=== PATIENT | female | born 1960 | race Caucasian/White ===

== ENCOUNTER 2022-11-05 11:51 | Emergency (ER) | payer BC, SELFPAY ==
--- NOTE | ~2022-11-05 | XR_ITS ---
EXAMINATION: XR FOOT, RIGHT CLINICAL INFORMATION: History of fracture. Ongoing pain. COMPARISON: None TECHNIQUE: AP, lateral, and oblique views of the right foot. FINDINGS: There is callus formation overlying the appears to be a nondisplaced of the second metatarsal. The remaining bones joints and soft tissues are unremarkable. XR/XR foot RT min 3V IMPRESSION: Healing fracture of the distal diametaphysis of the second metatarsal.
[2022-11-05 12:26] VITALS: BP 181/71; PULSE 78; RESP 18; TEMP 36.6; O2SAT 100; BMI 20.3
--- NOTE | 2022-11-05 12:28 | ED.LOWEXIN ---
HPI - Extremity Injury (Lower) General Chief Complaint: Extremity Injury, Lower <ALEXIS Alvarado - Last Filed: 11/05/22 12:30> Stated Complaint: R foot pain <ALEXIS Alvarado - Last Filed: 11/05/22 12:30> Time Seen by Provider: 11/05/22 13:10 <ALEXIS Alvarado - Last Filed: 11/05/22 12:30> Source: patient <Aura Gillespie CNP - Last Filed: 11/05/22 15:22> Mode of arrival: ambulatory <Aura Gillespie CNP - Last Filed: 11/05/22 15:22> Limitations: no limitations <Aura Gillespie CNP - Last Filed: 11/05/22 15:22> History of Present Illness HPI Narrative: Patient is a 62-year-old female who presents emergency department for evaluation of persistent right foot pain. She reports in June 2022 she sustained a 2nd metatarsal fracture without surgical intervention, for which she was being evaluated and treated in [place]. Her last appointment was October 16, 2022, at that time she was advised that it is ?not healing as well as it should?, but she states that she was advised she could return to work without restrictions, and without the use of the walking boot. She reports since then she has continue to wear the walking boot. Last night she went to work at [employer], was on her feet for a prolonged period, did not have the walking boot present, and today she reports significant increase in her pain, that feels similar to the time when she initially fractured it. Denies any numbness tingling or cold sensation to the foot. She has not had any orthopedic follow-up here in [place] since she moved. <Aura Gillespie CNP - Last Filed: 11/05/22 15:22> Related Data Allergies/Adverse Reactions: Allergies Allergy/AdvReac Type Severity Reaction Status Date / Time acetaminophen [From Percocet] Allergy Headache Verified 11/05/22 13:05 oxycodone [From Percocet] Allergy Headache Verified 11/05/22 13:05 Penicillins Allergy Nausea and Verified 11/05/22 13:05 Vomiting <ALEXIS Alvarado - Last Filed: 11/05/22 12:30> Review of Systems Review of Systems: Musculoskeletal: Positive right foot pain as noted in HPI <Aura ChristiansenDARÍO hagen - Last Filed: 11/05/22 15:22> Yes all other systems are reviewed and are negative <Aura GillespieDARÍO - Last Filed: 11/05/22 15:22> [facility] Past Medical History Attestation statement: The following information was validated with the patient. <Aura Martinez DARÍO Gillespie - Last Filed: 11/05/22 15:22> Source: old records reviewed <Aurabessy ChristiansenDARÍO hagen - Last Filed: 11/05/22 15:22> Social History Social History: Social History Advance Directives: No Advance Directives Information Provided: Yes <ALEXIS Alvarado - Last Filed: 11/05/22 12:30> Physical Exam Vital Signs: Vital Signs: Last Vital Signs Temp 98 F 11/05/22 12:26 Pulse 78 11/05/22 12:26 Resp 18 11/05/22 12:26 BP 181/71 H 11/05/22 12:26 Pulse Ox 100 11/05/22 12:26 BMI result Body Mass Index 20.3 <ALEXIS Alvarado - Last Filed: 11/05/22 12:30> Vital Signs: Last Vital Signs Temp 98 F 11/05/22 12:26 Pulse 78 11/05/22 12:26 Resp 18 11/05/22 12:26 BP 181/71 H 11/05/22 12:26 Pulse Ox 100 11/05/22 12:26 BMI result Body Mass Index 20.3 <Aura ChristiansenDARÍO hagen - Last Filed: 11/05/22 15:22> Appearance: Alert.?Oriented to person, place and time. No acute distress.?Normal affect.?? Neck: Normal inspection.? Neck supple.?? CVS: Heart sounds normal. Normal heart rate and rhythm.? Pulses normal.?? Respiratory: No respiratory distress.? Lung sounds clear to auscultation bilaterally?? Abdomen: Soft and non-tender. Normoactive bowel sounds. Skin: Skin warm and dry.? Normal skin color.? ? Extremities: No lower extremity edema.? No calf ttp. 2+ DP/pedal pulse bilaterally. Tenderness upon palpation over the mid on the right. No obvious deformity or swelling. Neuro: Moves all extremities spontaneously. Sensation intact bilaterally. No focal neuro deficits. Ambulates with normal steady gait. <Aura Gillespie CNP - Last Filed: 11/05/22 15:22> Course Course Course Narrative: RME - 62 yo female with history of 2nd metatarsal fracture in June formerly from [place] presents to the ER for ongoing right foot pain. Does not have Ortho yet here. XR ordered. Will need referral to our ortho for ongoing care. <ALEXIS Alvarado - Last Filed: 11/05/22 12:30> Medical Decision Making Medical Decision Making MDM Narrative: Patient is a 62-year-old female aborted past history of 2nd metatarsal fracture from June 2022 that was treated without surgical intervention. Return to work yesterday night, without the use of walking boot, was on her feet for prolonged period, and today has increase in pain. No reported subsequent injury. Has no orthopedic follow-up established in this state as she recently moved. Extremity is neurovascularly intact distally. Obtained XR for re-evaluation which reveals no acute fracture, healing fracture of the distal diametaphysis tarsal. Discussed these findings with patient. Provided with a work note, and provided contact information for orthopedics to arrange for outpatient follow-up. All questions answered. She is stable for discharge, ambulatory with steady gait in the use of walking boot. <Aura Gillespie CNP - Last Filed: 11/05/22 15:22> Independent Interpretation I performed an independent interpretation of an: Plain X-Ray (I have personally interpreted the x-ray of the right foot and agree with radiologist impression. No evidence of acute fracture.) <Aura Gillespie CNP - Last Filed: 11/05/22 15:22> Radiology Impression Discussion of test interpretation with radiology: I have reviewed the radiologist's reading. <Aura Gillespie CNP - Last Filed: 11/05/22 15:22> Radiologist Impression: XR/XR foot RT min 3V IMPRESSION: Healing fracture of the distal diametaphysis of the second metatarsal. <Aura Gillespie CNP - Last Filed: 11/05/22 15:22> Prescription Management I considered prescription management with: Pain Medication <Aura Gillespie CNP - Last Filed: 11/05/22 15:22> Discharge Plan Discharge Clinical Impression: Fracture of second metatarsal bone of right foot <ALEXIS Alvarado - Last Filed: 11/05/22 12:30> Patient Disposition: Home, Self-Care <ALEXIS Alvarado - Last Filed: 11/05/22 12:30> Instructions: Foot Fracture in Adults (ED) <ALEXIS Alvarado - Last Filed: 11/05/22 12:30> Additional Instructions: As discussed, there is no evidence of a new fracture or injury on your x-ray. It appears as though the fracture to your 2nd metatarsal is healing, however we do not have prior x-ray imaging available for comparison. Continue wearing the walking boot until seen by Orthopedics. You can take ibuprofen 200 mg, 3 tablets (600mg) every 6-8 hours as needed for pain, in addition to Tylenol 500 mg, 2 tablets (1,000mg) every 4-6 hours as needed for pain, but not to exceed 3 doses daily (3,000mg).? You may return back to emergency department any new or worsening symptoms or concerns. <ALEXIS Alvarado - Last Filed: 11/05/22 12:30> Referrals: Tawnya Ramos PA-C [Physician [facility]] - <ALEXIS Alvarado - Last Filed: 11/05/22 12:30> Stand Alone Forms: Work/School Release <ALEXIS Alvarado - Last Filed: 11/05/22 12:30>
== END 2022-11-05 15:39 | disposition home or self-care (01) ==
PROVIDERS: Emergency Provider Student in an Organized Health Care Education/Training Program
DX: M79.671 Pain in right foot (principal); S92.321D Displaced fracture of second metatarsal bone, right foot, subsequent encounter for fracture with routine healing; X58.XXXD Exposure to other specified factors, subsequent encounter
CPT/HCPCS: 73630; 99282; 99283

== ENCOUNTER 2022-11-15 04:54 | Inpatient (IN) | payer BC, SELFPAY ==
[2022-11-15] VITALS (9 sets, daily range): BP systolic 139–151; BP diastolic 69–87; PULSE 96–110; RESP 17–22; TEMP 36.3–37; O2SAT 96–99; BMI 20.3
--- NOTE | ~2022-11-15 | XR_ITS ---
EXAMINATION: XR CHEST CLINICAL INFORMATION: Bradycardia COMPARISON: None TECHNIQUE: Frontal view of the chest was obtained. FINDINGS: Low lung volumes. No focal consolidation or mass. Normal pulmonary vascularity. No pleural effusion or pneumothorax. Enteric tube descends the esophagus into the stomach. Normal heart size. Regional skeleton intact. XR/XR chest 1V IMPRESSION: Low lung volumes but no acute pulmonary disease.
--- NOTE | ~2022-11-15 | CT_ITS ---
EXAMINATION: CT ABDOMEN AND PELVIS WITHOUT CONTRAST CLINICAL INFORMATION: Pain. Question small bowel obstruction. COMPARISON: None TECHNIQUE: Multidetector volumetric imaging was performed from the superior aspect of the liver through the pubic symphysis. Sagittal and coronal reformatted images were obtained on the technologist's workstation. This CT examination was performed using dose optimization techniques as appropriate, variously including the following: *Automated exposure control *Adjustment of mA and/or kV according to patient size (this includes techniques or standardized protocols for targeted exams where dose is matched to indication/reason for exam; i.e. extremities or head) *Use of iterative reconstruction technique DLP: 355 mGy-cm FINDINGS: LUNG BASES: The visualized lung bases are unremarkable. LIVER, GALLBLADDER, AND BILIARY TREE: The liver is normal in size, shape, and attenuation. No focal hepatic lesion or biliary ductal dilatation is present. Trace perihepatic ascites. The gallbladder is unremarkable with no evidence of radiopaque gallstones, gallbladder wall thickening, or obvious pericholecystic inflammatory changes. PANCREAS: Unremarkable. SPLEEN: Unremarkable. ADRENAL GLANDS: Unremarkable. KIDNEYS AND URETERS: The kidneys are normal in size, shape, and attenuation. No hydronephrosis or hydroureter. Bilateral renal calculi. On the left there is a lower pole 0.3 cm calculus on the right there are at least 5 calculi present. The largest is seen at the upper pole measuring 0.6 cm, 7 cm from the posterior axillary line. This measures 500 Hounsfield units. BLADDER: Unremarkable. GASTROINTESTINAL TRACT: Distended stomach without wall thickening. Dilated proximal small bowel leading to an area of fecalization in the central abdomen with transition point in the central abdomen. Beyond this level the small bowel is decompressed. Normal appendix. Gas and stool throughout the colon. Colonic diverticulosis which is greatest at the sigmoid colon. No diverticulitis. No free air. ABDOMINAL WALL: No significant hernia is appreciated. LYMPH NODES: Normal. VASCULAR: Normal caliber aorta with mild atherosclerotic calcification. PELVIC VISCERA: The uterus and adnexa are unremarkable. OSSEOUS STRUCTURES: No acute or suspicious osseous abnormality. Degenerative changes throughout the spine. Mild degenerative changes in the hips. CT/CT abdomen pelvis wo IV con IMPRESSION: 1. Small bowel obstruction with transition point in the central abdomen. 2. Bilateral nonobstructing renal calculi. Fleischner guidelines were followed.
--- NOTE | ~2022-11-15 | FL_ITS ---
EXAMINATION: FL SMALL BOWEL SERIES CLINICAL INFORMATION: High-grade is medial constipation. COMPARISON: None TECHNIQUE: Following a biofuels product manager image of the abdomen, 50-50 Gastrografin contrast was administered through the NG tube and interval abdominal radiographs were performed to assess for contrast progression through the small bowel. Following contrast transit through the small bowel and into the colon, the patient was placed on the fluoroscopy table, and multiple spot images were obtained. FINDINGS: Dragline Engineer image of the abdomen demonstrates a normal bowel gas pattern. There is normal transit time of contrast material through the small bowel, with contrast present in the colon by 1 hour 30 minutes. Small bowel loops are of normal caliber throughout the abdomen and pelvis. The jejunal and ileal fold patterns are normal, without evidence of abnormal thickening. No fixed regions of luminal narrowing are seen to suggest stricturing. The terminal ileum demonstrates a normal appearance. Appendix is not seen. There is still visualized in the ascending colon. FLUOROSCOPY TIME: 0.9 minutes DOSE AREA PRODUCT: 15.9 uGy-m2 (microgray-meter squared) FL/FL small bowel follow through IMPRESSION: Normal small bowel Gastrografin study. On spot images there is unremarkable ileocecal junction. Appendix is not seen.
[2022-11-15 05:52] LABS: Basophils Absolute Auto 0.1 X10*3/uL (0.0-0.2); Basophils Percent Auto 0.4 % (0-2); Eosinophils Percent Auto 0.3 % (0-4); Hematocrit 43.3 % (37.0-47.0); Hemoglobin 13.7 g/dl (12.0-16.0); Imm Gran Abs Auto 0.05 X10*3/uL (0.00-0.03); Imm Gran Pct Auto 0.3 % (0.0-0.4); Lymphocytes Absolute Auto 0.7 X10*3/uL (1.2-4.9); Lymphocytes Percent Auto 4.9 % (20-40); MANUAL DIFF FLAG NO; Mean Corpuscular HGB Conc 31.6 g/dl (31.0-35.0); Mean Corpuscular Hemoglobin 30.1 pg (27.0-33.0); Mean Corpuscular Volume 95.2 fL (80.0-98.0); Mean Platelet Volume 8.7 fL (9.4-12.3); Monocytes Absolute Auto 1.2 X10*3/uL (0.1-1.2); Monocytes Percent Auto 8.4 % (2-11); Neutrophils Absolute Auto 12.7 x10*3/uL (2.0-8.3); Neutrophils Percent Auto 85.7 % (45-73); Platelet Count 627 X10*3/uL (160-400); Red Blood Count 4.55 X10*6/uL (4.20-5.50); Red Cell Distribution Width 12.8 % (11.0-16.0); White Blood Count 14.8 X10*3/uL (4.8-10.8)
--- NOTE | 2022-11-15 06:02 | ECG_ITS ---
Test Reason : ABDOMINAL PAIN NAUSEA Blood Pressure : / mmHG Vent. Rate : 107 BPM Atrial Rate : 107 BPM P-R Int : 162 ms QRS Dur : 074 ms QT Int : 330 ms P-R-T Axes : 070 058 080 degrees QTc Int : 440 ms Sinus tachycardia Nonspecific ST and T wave abnormality Abnormal ECG No previous ECGs available Referred By: Sukhi Muñoz Electronically Signed By:TRINA MORGAN MD
[2022-11-15] MEDS: ondansetron HCL 4 MG/2 ML VIAL IVPUSH ×2 (06:24→08:40)
[2022-11-15] MEDS: Pantoprazole Sodium 40 MG/10 ML VIAL IVPUSH (06:24)
[2022-11-15] MEDS: 0.9 % Sodium Chloride 1,000 ML 999 ML IV (06:24)
[2022-11-15] MEDS: Morphine Sulfate 4 MG/ML CARTRIDGE IVPUSH (06:24)
[2022-11-15 06:29] LABS: Influenza A PCR NEGATIVE (Negative); Influenza B PCR NEGATIVE (Negative); Resp Syncy Virus RNA Qual PCR NEGATIVE (Negative); SARS COV2 PCR INHOUSE NEGATIVE (Negative)
--- NOTE | 2022-11-15 06:38 | PC.NURSE ---
Nursing Assessment: Pt is a/o x4, pt's mom is at bedside. Pt was connected the monitor and it shows sinus Tachy, with slightly hypertensive. Pt's lungs sounds were fine crackles bilaterally on the lower lobes, diminished sound on the 2/3.Pt reports hx of COPD, and pt was desat on 80s, 2L NC was given. Pt has IV 20G on her RAC, pt has no edema, + skin turgor, and > 2 capillary refill. Labs has been drawn and sent, medication has been administered as order. Pt has hyperactive bowel sound throughout on her x4 quadrants. Pt abd was rigid and pt reports feeling bloated. EKG was obtaia, and provider was notified. Please referral to the worklist for further information.
[2022-11-15 06:44] LABS: Lactic Acid 1.1 mmol/L (0.5-2.0)
[2022-11-15 06:48] LABS: Alanine Aminotransferase 47 U/L (0-31); Alkaline Phosphatase 163 U/L (39-117); Anion Gap 18 (12-20); Aspartate Amino Transferase 30 U/L (5-31); Bilirubin Total 0.8 mg/dL (0.0-1.0); Blood Urea Nitrogen 25 mg/dL (9-16); Calcium 9.6 mg/dL (8.4-10.2); Carbon Dioxide 21 mmol/L (22-29); Chloride 106 mmol/L (96-108); Creatinine Clr Calc Pharmacy 74.8; Estimated Glomerular Filt Rate > 60; Glucose Fasting 173 mg/dL (60-99); Lipase 16 U/L (8-78); Potassium 4.5 mmol/L (3.3-5.1); Sodium 140 mmol/L (135-145); Total Protein 6.8 g/dL (6.5-8.0)
--- NOTE | 2022-11-15 07:36 | ED_ITS ---
HPI - Abdominal Pain General Chief Complaint: Abdominal Pain Stated Complaint: brown vomit, unable to eat Time Seen by Provider: 11/15/22 07:13 Source: patient Mode of arrival: ambulatory Limitations: no limitations History of Present Illness HPI narrative: 62-year-old female with history of COPD, remote history of surgery at of the abdomen. She presents today with generalized abdominal pain starting yeste rday. The pain was severe yesterday. This pain was also noted to be constant with intermittent components. Associated with nausea vomiting, nonbilious, nonbloody. She reports a lack of flatus and stool since yesterday. She denies a history of small-bowel obstruction. She does report a history of a left inguinal hernia for which reports no active issues with. She denies any urinary complaints. She denies any fevers or chills. She does report some baseline shortness of breath from COPD but also from a recent upper respiratory infection which she completed azithromycin. Again the pain is generalized. Does not radiate. It is worse with ingestion of food or fluids. She has been anorexic since yesterday. She denies any sick contacts. She also reports a history of IBS -C Related Data Allergies Allergy/AdvReac Type Severity Reaction Status Date / Time oxycodone [From Percocet] Allergy Headache Verified 11/05/22 13:05 Penicillins Allergy Nausea and Verified 11/05/22 13:05 Vomiting Review of Systems Review of Systems Yes all other systems are reviewed and are negative Constitutional: Reports anorexia Eyes: Reports no additional eye complaints Reports system reviewed and no additional complaints, except as documented Cardiovascular: Reports no additional cardiovascular complaints and Reports dyspnea Respiratory: Reports cough and Reports dyspnea Gastrointestinal: Reports abdominal pain, Reports belching, Reports bloating, Reports change in bowel habits, Denies coffee ground emesis and Reports constipation Genitourinary: Reports no additional female genitourinary complaints Musculoskeletal: Reports no additional musculoskeletal complaints Skin/Breast: Reports system reviewed and no additional complaints, except as docu Reports system reviewed and no additional complaints, except as documented Psychiatric: Reports no additional psychiatric complaints Endocrine: Reports no additional endocrine complaints Hematologic/Lymphatic: Reports no additional hematologic/lymphatic complaints Allergic/Immunologic: Reports no additional allergic/immunologic complaints [facility] Past Medical History Attestation statement: The following information was validated with the patient. [facility] Narrative: IBS-C, abdominal surgery, COPD Social History Social History Smoked in Last 30 Days: Yes Use of substances other than those prescribed or required for medical reasons: No Advance Directives: No Advance Directives Information Provided: Yes Physical Exam ED Vital Signs: Vital Signs - 24 hr 11/15/22 05:19 11/15/22 06:03 11/15/22 06:03 Temperature 97.8 F 98.6 F Pulse Rate 110 H 110 H Respiratory Rate 20 20 21 H Blood Pressure 144/75 H 147/87 H Pulse Oximetry 97 Oxygen Delivery Method Room Air 11/15/22 06:24 11/15/22 07:03 Temperature Pulse Rate 97 Respiratory Rate 22 H 20 Blood Pressure 151/69 H Pulse Oximetry 96 Oxygen Delivery Method Room Air BMI result Body Mass Index 20.3 Const General: cooperative, healthy appearing, comfortable and no acute distress HENMT Head: Yes normal to inspection Eyes General: appearance normal, both eyes and all related structures Neck Neck: Yes normal visual inspection Resp Effort & Inspection: normal respiratory effort Auscultation: clear to auscultation bilaterally Cardio Rate: regular rate Rhythm: regular rhythm GI Inspection: Yes distended, Yes incision and Yes scar Palpation (GI): Firmness to palpation present (GI) and Tenderness to palpation present (GI) other (Generalized); with no rebound tenderness Skin General skin exam: no rashes or lesions noted Neuro General: no focal motor deficits Extrem General: Yes normal to inspection Psych Appearance: grossly normal Course Course Course Narrative: 62-year-old female with remote history abdominal surgery presents with nausea, vomiting, abdominal distention and lack of flatus and stool since yesterday. Patient on exam that revealed some moderate abdominal distention, no rebound or guarding. She also has scar tissue evident on the abdomen which is reportedly from Pediatric surgery. Rest of examination was unremarkable. EKG showed no acute ST elevations depressions but likely rate-related changes. Lab work was reviewed including an elevated white blood cell count likely due to acute leukemoid reaction secondary to stress. She also was noted to have hyper glycemia again likely to be a stress reaction. Her alkaline phosphatase was elevated but her LFTs were otherwise normal. She was provided with antiemetics, intravenous fluids. CT scan demonstrated a small-bowel obstruction with midabdominal transition point. There is a moderate amount of stool in the rectosigmoid colon. EKG rhythm nonischemic changes. Surgical consultation was obtained at approximately 7:40 a.m. this morning. Waiting evaluation at this time. I did discuss results and findings with the patient. She understands the reasoning for admission and nasogastric tube. Reevaluation(s) Reevaluation #1: Patient is having some abdominal discomfort. Will order intravenous Tylenol. Dr. May has agreed to admit the patient. Starting maintenance IV fluids as well Time: 08:16 Consultations Consultation #1: Darren May - Received [place] text and will evaluate patient Time: 07:36 Medical Decision Making Medical Decision Making MDM Narrative: 62-year-old female with history of remote abdominal surgery presents with abdominal distension, nausea, vomiting, lack of stool flatus. This initial evaluation is most consistent with small-bowel obstruction. Other diagnosis considered including constipation, IBS, IBD, colitis, UTI. Patient's initial evaluation did not reveal an acute abdomen with rebound or guarding. Labs have been ordered including CBC, lactic acid, chemistry, urinalysis. A CT scan has also been ordered and independently reviewed. Differential Diagnosis Differential Diagnoses: The differential diagnosis associated with the presentation includes (Small-bowel obstruction, IBS, IBD, colitis, UTI, ga stroenteritis) Admission/Observation Consideration of admission/observation: Escalation of care including admission/observation considered (Likely admission for small-bowel obstruction) Consult Healthcare Provider Management of the patient was discussed with: Airset Caster (Surgical) Lab Data [facility] Lab Attestation statement: I reviewed the patient's lab results. 11/15/22 05:45 11/15/22 06:20 Labs: Lab Results 11/15/22 11/15/22 11/15/22 Range/Units 05:44 05:45 06:20 WBC 14.8 H (4.8-10.8) X10*3/uL RBC 4.55 (4.20-5.50) X10*6/uL Hgb 13.7 (12.0-16.0) g/dl Hct 43.3 (37.0-47.0) % MCV 95.2 (80.0-98.0) fL MCH 30.1 (27.0-33.0) pg MCHC 31.6 (31.0-35.0) g/dl RDW 12.8 (11.0-16.0) % Plt Count 627 H (160-400) X10*3/uL MPV 8.7 L (9.4-12.3) fL Immature Gran % (Auto) 0.3 (0.0-0.4) % Neut % (Auto) 85.7 H (45-73) % Lymph % (Auto) 4.9 L (20-40) % [place] % (Auto) 8.4 (2-11) % Eos % (Auto) 0.3 (0-4) % Baso % (Auto) 0.4 (0-2) % Lymph # (Auto) 0.7 L (1.2-4.9) X10*3/uL [place] # (Auto) 1.2 (0.1-1.2) X10*3/uL Eos # (Auto) 0.0 (0.0-0.4) X10*3/uL Baso # (Auto) 0.1 (0.0-0.2) X10*3/uL Abs Immat Gran (auto) 0.05 H (0.00-0.03) X10*3/uL Absolute Neuts (auto) 12.7 H (2.0-8.3) x10*3/uL Absolute Nucleated RBC 0.000 (0.0-0.012) X10*3/uL Nucleated RBC % (auto) 0.0 (0.0-0.2) /100WBC Sodium 140 (135-145) mmol/L Potassium 4.5 (3.3-5.1) mmol/L Chloride 106 (96-108) mmol/L Carbon Dioxide 21 L (22-29) mmol/L Anion Gap 18 (12-20) BUN 25 H (9-16) mg/dL Creatinine 0.65 (0.5-1.4) mg/dL Estim Creat Clear Calc 74.8 Estimated GFR > 60 Fasting Glucose 173 H (60-99) mg/dL Lactic Acid (0.5-2.0) mmol/L Calcium 9.6 (8.4-10.2) mg/dL Total Bilirubin 0.8 (0.0-1.0) mg/dL AST 30 (5-31) U/L ALT 47 H (0-31) U/L Alkaline Phosphatase 163 H (39-117) U/L Total Protein 6.8 (6.5-8.0) g/dL Albumin 4.0 (3.5-5.0) g/dL Lipase 16 (8-78) U/L Influenza Type A (PCR) NEGATIVE (Negative) Influenza Type B (PCR) NEGATIVE (Negative) RSV RNA Qual (PCR) NEGATIVE (Negative) SARS-CoV-2 RNA (RT-PCR) NEGATIVE (Negative) 11/15/22 11/15/22 Range/Units 06:20 07:54 WBC (4.8-10.8) X10*3/uL RBC (4.20-5.50) X10*6/uL Hgb (12.0-16.0) g/dl Hct (37.0-47.0) % MCV (80.0-98.0) fL MCH (27.0-33.0) pg MCHC (31.0-35.0) g/dl RDW (11.0-16.0) % Plt Count (160-400) X10*3/uL MPV (9.4-12.3) fL Immature Gran % (Auto) (0.0-0.4) % Neut % (Auto) (45-73) % Lymph % (Auto) (20-40) % [place] % (Auto) (2-11) % Eos % (Auto) (0-4) % Baso % (Auto) (0-2) % Lymph # (Auto) (1.2-4.9) X10*3/uL [place] # (Auto) (0.1-1.2) X10*3/uL Eos # (Auto) (0.0-0.4) X10*3/uL Baso # (Auto) (0.0-0.2) X10*3/uL Abs Immat Gran (auto) (0.00-0.03) X10*3/uL Absolute Neuts (auto) (2.0-8.3) x10*3/uL Absolute Nucleated RBC (0.0-0.012) X10*3/uL Nucleated RBC % (auto) (0.0-0.2) /100WBC Sodium (135-145) mmol/L Potassium (3.3-5.1) mmol/L Chloride (96-108) mmol/L Carbon Dioxide (22-29) mmol/L Anion Gap (12-20) BUN (9-16) mg/dL Creatinine (0.5-1.4) mg/dL Estim Creat Clear Calc Estimated GFR Fasting Glucose (60-99) mg/dL Lactic Acid 1.1 0.7 (0.5-2.0) mmol/L Calcium (8.4-10.2) mg/dL Total Bilirubin (0.0-1.0) mg/dL AST (5-31) U/L ALT (0-31) U/L Alkaline Phosphatase (39-117) U/L Total Protein (6.5-8.0) g/dL Albumin (3.5-5.0) g/dL Lipase (8-78) U/L Influenza Type A (PCR) (Negative) Influenza Type B (PCR) (Negative) RSV RNA Qual (PCR) (Negative) SARS-CoV-2 RNA (RT-PCR) (Negative) Independent Interpretation I performed an independent interpretation of an: EKG (Sinus tachycardia, wandering baseline with no acute ST elevations or depressions. Nonspecific rat e-related ST changes.) Radiology Impression Discussion of test interpretation with radiology: I have reviewed the radiologist's reading. Radiologist Impression: CT/CT abdomen pelvis wo IV con IMPRESSION: 1.? Small bowel obstruction with transition point in the central abdomen. 2.? Bilateral nonobstructing renal calculi. ? Fleischner guidelines were followed. Dictated By: Ankit Elaine MD Signed By: <Electronically signed by Ankit Elaine MD in [place]> Additionally, independently reviewed CT scan imaging. There is no evidence of perforation and there was evidence of a small-bowel obstruction with air-fluid levels and rectosigmoid stool. Prescription Management I considered prescription management with: Other (Antiemetic medications) Chronic Conditions Patient?s care impacted by: Other (COPD) Core Measures Measure exclusions: not indicated Medications Administered Discontinued Medications Generic Name Dose Route Start Last Admin Trade Name Freq PRN Reason Stop Dose Admin Sodium Chloride 1,000 mls @ 999 mls/hr 11/15/22 06:01 11/15/22 06:24 Ns IV 11/15/22 07:01 999 mls/hr .Q1H1M ONE Administration Morphine Sulfate 4 mg 11/15/22 06:01 11/15/22 06:24 Morphine Sulfate 4 Mg/Ml Cartridge IVPUSH 11/15/22 06:02 4 mg ONCE ONE Administration Protocol Ondansetron HCl 4 mg 11/15/22 06:01 11/15/22 06:24 Ondansetron Hcl 4 Mg/2 Ml Vial IVPUSH 11/15/22 06:02 4 mg ONCE ONE Administration Pantoprazole Sodium 40 mg 11/15/22 06:03 11/15/22 06:24 Pantoprazole Sodium 40 Mg/10 Ml Vial IVPUSH 11/15/22 06:04 40 mg ONCE ONE Administration Discharge Plan Discharge Clinical Impression: Small bowel obstruction, Acute hyperglycemia, Leukocytosis, Alkaline phosphatase elevation Patient Disposition: Admitted As Inpatient
--- NOTE | 2022-11-15 07:51 | PC.NURSE ---
pt aware of care plan and agreeable, plan for NGT, awaiting order for lidocaine to neb prior to placement, nad, skin wpd
--- NOTE | 2022-11-15 08:06 | P.HPGS_ITS ---
History of Present Illness History of Present Illness Date of Service: 11/15/22 Chief complaint: SBO Narrative: Anya Eden is a 62 year old female with a history of asthma/COPD and irritable bowel syndrome with constipation features who is accompanied by her mother. The patient also reports a 15+ year history of a left inguinal hernia for which she wears a truss. The patient's mother is known to me as her is currently a patient of mine. The patient's mother notes that when the patient was an infant, within a couple days of , she needed emergent surgery because of some sort of intestinal obstruction and required a bowel resection. Since that time, the patient reports that she is doing well and had cramped transient episodes of abdominal pain that she is always assumed of been related to her irritable bowel syndrome with constipation features. She notes that her last bowel movement was 2 days ago and around that time, she started to develop crampy abdominal pain. When the pain became unrelenting and progressed and was associated with nausea and vomiting, she came to the emergency department where she was noted to have diffuse abdominal tenderness with no peritoneal sign, a leukocytosis to [address] concerning for a mid small- bowel obstruction with feculization of the mid/distal small bowel. Review of Systems Review of Systems: Yes all other systems are reviewed and are negative Constitutional: Constitutional: Reports as per [facility] Social History Social History Smoked in Last 30 Days: Yes Use of substances other than those prescribed or required for medical reasons: No Advance Directives: No Advance Directives Information Provided: Yes Meds Allergies Allergy/AdvReac Type Severity Reaction Status Date / Time oxycodone [From Percocet] Allergy Headache Verified 11/05/22 13:05 Penicillins Allergy Nausea and Verified 11/05/22 13:05 Vomiting Home Medications Medication Instructions Recorded Confirmed Last Taken Type albuterol sulfate 90 mcg/actuation 2 puff inhalation Q6H PRN 11/15/22 11/15/22 Unknown History aerosol inhaler (ProAir HFA) Shortness Of Breath Or Wheezing cholecalciferol (vitamin D3) 25 25 mcg PO DAILY 11/15/22 11/15/22 11/14/22 History mcg (1,000 unit) tablet (Vitamin D3) fluticasone fur. 100 mcg-umeclid 1 inh inhalation DAILY 11/15/22 11/15/22 Unknown History 62.5 mcg-vilant 25 mcg inhalat.powder (Trelegy Ellipta) ibuprofen 200 mg tablet 400 mg PO Q8H PRN Pain 11/15/22 11/15/22 Unknown History multivitamin 1 tab PO DAILY 11/15/22 11/15/22 11/14/22 History Physical Exam Vital Signs: Vital Signs: Last Vital Signs Temp 98.6 F 11/15/22 06:03 Pulse 97 11/15/22 07:03 Resp 20 11/15/22 07:03 BP 151/69 H 11/15/22 07:03 Pulse Ox 96 11/15/22 07:03 O2 Del Method 11/15/22 07:03 BMI result Body Mass Index 20.3 The patient is non-toxic & in good spirits NC/AT, PERRLA, EOMI Mood, affect & judgment all appear appropriate Sclera anicteric conjunctiva pink and moist Oropharynx is clear with no aphthous ulcers, Mallampati class 4, mucous membranes moist Neck is supple with no masses, adenopathy or bruits Heart is regular, normal S1-S2 no rubs or murmurs Lungs are clear and equal anteriorly with no audible wheezing, rubs or dullness to percussion Abdomen is overweight with no demonstrable hernias. A well-healed right paramedian abdominal incision free of palpable hernia defect is noted and the patient's hernia truss is in place in her left groin. The left inguinal hernia reduces. No HSM, rebound, rigidity, guarding, masses or bruits are present. Rectal exam is deferred Skin has good turgor and is free of rashes Extremities free of cyanosis clubbing edema Results Results Labs: Short CBC 11/15/22 Range/Units 05:45 WBC 14.8 H (4.8-10.8) X10*3/uL Hgb 13.7 (12.0-16.0) g/dl Hct 43.3 (37.0-47.0) % Plt Count 627 H (160-400) X10*3/uL BMP 11/15/22 06:20 Sodium 140 Potassium 4.5 Chloride 106 Carbon Dioxide 21 L BUN 25 H Creatinine 0.65 Calcium 9.6 Liver Function 11/15/22 Range/Units 06:20 Total Bilirubin 0.8 (0.0-1.0) mg/dL AST 30 (5-31) U/L ALT 47 H (0-31) U/L Alkaline Phosphatase 163 H (39-117) U/L Albumin 4.0 (3.5-5.0) g/dL Abdomen CT scan report/results: report reviewed and image reviewed CT scan - pelvis: report reviewed and image reviewed Additional studies: Blood Glc elevated at 173, HbA1c 5.4 Lactic acid is normal at both draws Assessment and Plan (1) Small bowel obstruction: Status: Acute (2) Acute hyperglycemia: Status: Acute (3) Leukocytosis: Status: Acute (4) Alkaline phosphatase elevation: Status: Acute Plan They had requested a nasogastric tube be placed to low intermittent suction since the patient has significant gastric and proximal small bowel dilation with feculent material. There is no evidence of ischemia on CT and there is no free air. Explained to the patient and her mother as requested by the patient that 80% of these cases typically resolved non operatively, however given the degree of distension, we may need to consider operative in intervention if she is not clinically improved after 12 hours of nasogastric decompression. Patient is admitted to my service and will continue her pulmonary/asthma meds/inhalers. Trend labs and physical exam. Patient may need operative intervention if she clinically changes significantly or deteriorates. Time Spent With Patient Time: Total time managing care of this patient today ____ minutes. Quality Stroke Does the patient have a stroke diagnosis?: No VTE Prior VTE?: No VTE Risk Level:: Surgical - moderate VTE Device Contraindication: N/A - Device Ordered VTE Drug Contraindication: Treatment Not Indicated Procedures Date of Service Date of Service: 11/15/22
[2022-11-15 08:09] LABS: Lactic Acid 0.7 mmol/L (0.5-2.0)
[2022-11-15] MEDS: Acetaminophen 1,000 MG/100 ML PIGGYBACK 400 MG IV ×3 (08:40→21:36)
[2022-11-15] MEDS: Lidocaine HCl 4 % Topical 50 ML SOLUTION 1 APPL TOPICAL (08:40)
[2022-11-15 08:49] LABS: Estimated Average Glucose 108 mg/dL; Hemoglobin A1c % 5.4 %
--- NOTE | 2022-11-15 09:11 | PHA.MEDREC ---
Pharmacy Consult ? Medication Reconciliation Pharmacy has completed the medication reconciliation. Patient and patient's mother claimed albuterol and Trelegy were still being taken by the patient, however the pharmacy states they haven't filled those medications in over 2 years.
--- NOTE | 2022-11-15 09:23 | PC.NURSE ---
14 fr ngt placed, pt needed ativan, unsuccessful on r nare, l nare no issues and went in easily and pt tolerated well, sr on monitor, skin wpd, still drasiniung some and 750ml [place] fluid removed, awaiting xray
[2022-11-15] MEDS: LORazepam 2 MG/ML VIAL 1 MG IVPUSH (09:25)
[2022-11-15] MEDS: Lactated Ringers 1,000 ML 125 ML IVCONT ×2 (09:29→20:03)
--- NOTE | 2022-11-15 10:30 | PC.NURSE ---
sleeping, nad, resp even and unlabored, family brought her [place]on[place] home and left a note for her, sr on monitor, skin wpd
[2022-11-15 13:29] LABS: Appearance Urine Clear; Color Urine Dark Yellow; Glucose Urine UA Negative (Negative); Leukocyte Esterase Urine Negative (Negative); Nitrite Urine Negative (Negative); PH 5.5 (5.0-9.0); Specific Gravity - Urine >= 1.030 (1.005-1.025); UMIC TRIGGER UACC YES; Urine Blood Negative (Negative); Urine Ketones Trace mg/dL (Negative); Urine Protein 30 (1+) mg/dL (Neg-Trace)
[2022-11-15 13:39] LABS: Bacteria Urine None Seen (None Seen); Hyaline Casts Urine 0-2 /LPF (0-2); Squamous Epithelial Cell Urine 0-2 /HPF (0-2); WBC Urine 0-5 /HPF (0-5)
[2022-11-15 14:30] LABS: MANUAL DIFF FLAG NO
[2022-11-15 14:33] LABS: Basophils Percent Auto 0.6 % (0-2); Eosinophils Absolute Auto 0.1 X10*3/uL (0.0-0.4); Eosinophils Percent Auto 1.2 % (0-4); Hematocrit 38.9 % (37.0-47.0); Hemoglobin 12.4 g/dl (12.0-16.0); Imm Gran Abs Auto 0.02 X10*3/uL (0.00-0.03); Imm Gran Pct Auto 0.3 % (0.0-0.4); Lymphocytes Absolute Auto 0.5 X10*3/uL (1.2-4.9); Lymphocytes Percent Auto 6.9 % (20-40); Mean Corpuscular HGB Conc 31.9 g/dl (31.0-35.0); Mean Corpuscular Hemoglobin 30.6 pg (27.0-33.0); Mean Platelet Volume 8.6 fL (9.4-12.3); Monocytes Absolute Auto 1.2 X10*3/uL (0.1-1.2); Monocytes Percent Auto 16.4 % (2-11); Neutrophils Absolute Auto 5.4 x10*3/uL (2.0-8.3); Neutrophils Percent Auto 74.6 % (45-73); Platelet Count 544 X10*3/uL (160-400); Red Blood Count 4.05 X10*6/uL (4.20-5.50); Red Cell Distribution Width 12.9 % (11.0-16.0); White Blood Count 7.3 X10*3/uL (4.8-10.8)
--- NOTE | 2022-11-15 15:33 | P.PNGS_ITS ---
Subjective Subjective Date of Service: 11/15/22 Patient reports: feels better, pain is less and no flatus Interval history: The patient is seen on afternoon rounds. She reports that she is feeling much better and less distended. Her cramping is improved and, per nursing staff, she has not required any additional meds. She does have Zofran, morphine and Tylenol IV ordered. She denies any vomiting around the NG tube and the NG is put out roughly 1200 cc based on notes. Physical Exam Vital Signs: Vital Signs: Last Vital Signs Temp 97.6 F 11/15/22 14:28 Pulse 96 11/15/22 14:28 Resp 18 11/15/22 14:28 BP 139/70 11/15/22 14:28 Pulse Ox 98 11/15/22 14:28 O2 Del Method 11/15/22 14:28 O2 Flow Rate 2 11/15/22 14:28 BMI result Body Mass Index 20.3 Patient appears more comfortable Sclera remain anicteric Abdomen is less distended with no peritoneal irritation to percussion. She has continued vague, nonspecific discomfort but no localizing pain and no localizing incisional hernia. Her left inguinal/femoral hernia is nontender and reduces Objective Data Active Medications Albuterol Sulfate (Albuterol Sulfate 90 Mcg 8 Gm Inhaler) 2 puff INHALE Q6H PRN PRN Reason: Shortness Of Breath Or Wheezing Lactated Ringer's (Lr) 1,000 mls @ 125 mls/hr IVCONT .Q8H [facility] Last Admin: 11/15/22 09:29 Dose: 125 mls/hr Documented By: WINTER Acetaminophen ([facility]) 1,000 mg in 100 mls @ 400 mls/hr IV Q6H [facility] Stop: 11/16/22 08:44 Morphine Sulfate (Morphine Sulfate 4 Mg/Ml Cartridge) 3 mg IVPUSH Q2H PRN; Protocol PRN Reason: Pain, Moderate (Pain Scale 4-6 Multivitamins/Vitamin C (Multivitamin Tablet) 1 tab PO DAILY [facility] Non-Formulary Medication (Niukqlgiaiz-Qilwwmgdp-Wyzzafxa [Trelegy Ellipta]) 1 inhalation INHALE DAILY [facility] Ondansetron HCl (Ondansetron Hcl 4 Mg/2 Ml Vial) 4 mg IVPUSH Q6H PRN PRN Reason: Nausea and Vomiting Pantoprazole Sodium (Pantoprazole Sodium 40 Mg/10 Ml Vial) 40 mg IVPUSH DAILY@0630 [facility] Pharmacy Consult (Consult Rx Perform Med Rec) 1 each MISCELLANE ONCE PRN PRN Reason: Consult order Labs 11/15/22 14:25 11/15/22 06:20 Labs: Laboratory Results - last 24 hr 11/15/22 11/15/22 11/15/22 05:44 05:45 06:20 MCV 95.2 MCH 30.1 MCHC 31.6 RDW 12.8 Plt Count 627 H MPV 8.7 L Immature Gran % (Auto) 0.3 Neut % (Auto) 85.7 H Lymph % (Auto) 4.9 L [place] % (Auto) 8.4 Eos % (Auto) 0.3 Baso % (Auto) 0.4 Lymph # (Auto) 0.7 L [place] # (Auto) 1.2 Eos # (Auto) 0.0 Baso # (Auto) 0.1 Abs Immat Gran (auto) 0.05 H Absolute Neuts (auto) 12.7 H Absolute Nucleated RBC 0.000 Nucleated RBC % (auto) 0.0 Anion Gap 18 Estim Creat Clear Calc 74.8 Estimated GFR > 60 Fasting Glucose 173 H Estimat Average Glucose Hemoglobin A1c % Lactic Acid Calcium 9.6 Total Bilirubin 0.8 AST 30 ALT 47 H Alkaline Phosphatase 163 H Total Protein 6.8 Albumin 4.0 Prealbumin Lipase 16 Urine Color Urine Appearance Urine pH Ur Specific [place] Urine Protein Urine Glucose (UA) Urine Ketones Urine Blood Urine Nitrite Ur Leukocyte Esterase Urine RBC Urine WBC Ur Squamous Epith Cells Urine Bacteria Hyaline Casts Influenza Type A (PCR) NEGATIVE Influenza Type B (PCR) NEGATIVE RSV RNA Qual (PCR) NEGATIVE SARS-CoV-2 RNA (RT-PCR) NEGATIVE 11/15/22 11/15/22 11/15/22 06:20 07:54 08:19 MCV MCH MCHC RDW Plt Count MPV Immature Gran % (Auto) Neut % (Auto) Lymph % (Auto) [place] % (Auto) Eos % (Auto) Baso % (Auto) Lymph # (Auto) [place] # (Auto) Eos # (Auto) Baso # (Auto) Abs Immat Gran (auto) Absolute Neuts (auto) Absolute Nucleated RBC Nucleated RBC % (auto) Anion Gap Estim Creat Clear Calc Estimated GFR Fasting Glucose Estimat Average Glucose 108 Hemoglobin A1c % 5.4 Lactic Acid 1.1 0.7 Calcium Total Bilirubin AST ALT Alkaline Phosphatase Total Protein Albumin Prealbumin Lipase Urine Color Urine Appearance Urine pH Ur Specific [place] Urine Protein Urine Glucose (UA) Urine Ketones Urine Blood Urine Nitrite Ur Leukocyte Esterase Urine RBC Urine WBC Ur Squamous Epith Cells Urine Bacteria Hyaline Casts Influenza Type A (PCR) Influenza Type B (PCR) RSV RNA Qual (PCR) SARS-CoV-2 RNA (RT-PCR) 11/15/22 11/15/22 11/15/22 09:32 13:15 14:25 MCV 96.0 MCH 30.6 MCHC 31.9 RDW 12.9 Plt Count 544 H MPV 8.6 L Immature Gran % (Auto) 0.3 Neut % (Auto) 74.6 H Lymph % (Auto) 6.9 L [place] % (Auto) 16.4 H Eos % (Auto) 1.2 Baso % (Auto) 0.6 Lymph # (Auto) 0.5 L [place] # (Auto) 1.2 Eos # (Auto) 0.1 Baso # (Auto) 0.0 Abs Immat Gran (auto) 0.02 Absolute Neuts (auto) 5.4 Absolute Nucleated RBC 0.000 Nucleated RBC % (auto) 0.0 Anion Gap Estim Creat Clear Calc Estimated GFR Fasting Glucose Estimat Average Glucose Hemoglobin A1c % Lactic Acid Calcium Total Bilirubin AST ALT Alkaline Phosphatase Total Protein Albumin Prealbumin 26.0 Lipase Urine Color Dark Yellow Urine Appearance Clear Urine pH 5.5 Ur Specific [place] >= 1.030 H Urine Protein 30 (1+) H Urine Glucose (UA) Negative Urine Ketones Trace Urine Blood Negative Urine Nitrite Negative Ur Leukocyte Esterase Negative Urine RBC 3-5 H Urine WBC 0-5 Ur Squamous Epith Cells 0-2 Urine Bacteria None Seen Hyaline Casts 0-2 Influenza Type A (PCR) Influenza Type B (PCR) RSV RNA Qual (PCR) SARS-CoV-2 RNA (RT-PCR) Procedures Date of Service Date of Service: 11/15/22 Progress Note: A&P Assessment and plan (1) Small bowel obstruction: Status: Acute (2) Acute hyperglycemia: Status: Acute (3) Leukocytosis: Status: Acute (4) Alkaline phosphatase elevation: Status: Acute (5) Irritable bowel syndrome with constipation: Status: Acute Plan The patient is improved since nasogastric decompression. We discussed the possibility of success in roughly 80% of patients with non operative management & NG decompression verses the 20% who will require operative exploration. I explained that we will need to monitor her to see if she will require operative intervention and she is specifically instructed to let the nurses know if her abdominal pain worsens, she develops bloating or vomiting around the nasogastric tube. The patient does note that her last bowel movement was 2 days ago. When she started feeling obstipated, she took a couple of laxatives of 2 different, unknown types, consequently, these may be exacerbating her small bowel obstruction by causing proximal bowel dilation secondary to irritation or osmotic activity. Continue to monitor for now. Labs are improving. Her thrombocytosis is likely secondary to dehydration and or/acute phase reaction and will need to follow serially. Trend electrolytes and renal function. Her left inguinal hernia has been stable for 15 years and does not seem to have bowel in a and is nontender, so it does not appear to be contributing to the patient's SBO at this time. The patient's NG should be on intermittent suction. While she can have mouth swabs, she should not have ice chips or drink liquids at this time. Time Spent With Patient Time: Total time managing care of this patient today ____ minutes. Quality Stroke Does the patient have a stroke diagnosis?: No VTE Prior VTE?: No VTE Risk Level:: Surgical - moderate VTE Device Contraindication: N/A - Device Ordered VTE Drug Contraindication: Treatment Not Indicated
[2022-11-16 04:00] VITALS: BP 152/71; PULSE 83; RESP 18; TEMP 36.1; O2SAT 97
[2022-11-16] MEDS: Acetaminophen 1,000 MG/100 ML PIGGYBACK 400 MG IV ×2 (04:22→12:59)
[2022-11-16] MEDS: Lactated Ringers 1,000 ML 125 ML IVCONT (04:43)
[2022-11-16] MEDS: Pantoprazole Sodium 40 MG/10 ML VIAL IVPUSH (06:09)
[2022-11-16 06:17] LABS: MANUAL DIFF FLAG NO
[2022-11-16 06:26] LABS: Basophils Percent Auto 0.6 % (0-2); Eosinophils Absolute Auto 0.2 X10*3/uL (0.0-0.4); Eosinophils Percent Auto 4.1 % (0-4); Hematocrit 33.7 % (37.0-47.0); Hemoglobin 10.5 g/dl (12.0-16.0); Imm Gran Abs Auto 0.01 X10*3/uL (0.00-0.03); Imm Gran Pct Auto 0.2 % (0.0-0.4); Lymphocytes Absolute Auto 1.1 X10*3/uL (1.2-4.9); Lymphocytes Percent Auto 22.4 % (20-40); Mean Corpuscular HGB Conc 31.2 g/dl (31.0-35.0); Mean Corpuscular Hemoglobin 30.3 pg (27.0-33.0); Mean Corpuscular Volume 97.4 fL (80.0-98.0); Mean Platelet Volume 8.9 fL (9.4-12.3); Monocytes Absolute Auto 0.7 X10*3/uL (0.1-1.2); Monocytes Percent Auto 15.8 % (2-11); Neutrophils Absolute Auto 2.7 x10*3/uL (2.0-8.3); Neutrophils Percent Auto 56.9 % (45-73); Platelet Count 447 X10*3/uL (160-400); Red Blood Count 3.46 X10*6/uL (4.20-5.50); Red Cell Distribution Width 12.9 % (11.0-16.0); White Blood Count 4.7 X10*3/uL (4.8-10.8)
[2022-11-16 06:37] LABS: Anion Gap 11 (12-20); Blood Urea Nitrogen 23 mg/dL (9-16); Calcium 8.4 mg/dL (8.4-10.2); Carbon Dioxide 23 mmol/L (22-29); Chloride 111 mmol/L (96-108); Creatinine Clr Calc Pharmacy 83.8; Estimated Glomerular Filt Rate > 60; Glucose Random 90 mg/dL (60-115); Potassium 4.2 mmol/L (3.3-5.1); Sodium 141 mmol/L (135-145)
[2022-11-16 08:00] VITALS: BP 130/65; PULSE 84; RESP 18; TEMP 36.9; O2SAT 93
--- NOTE | 2022-11-16 09:48 | PM.PNGS ---
Subjective Subjective Date of Service: 11/16/22 Patient reports: feels better, flatus and no bowel movement Interval history: The patient reports that she is feeling better, significantly less bloated and having flatus. She denies any bowel movement and further denies any headache, visual changes, chest pain, difficulty breathing or shortness of breath. She has no new complaints and is pleased that she is feeling better Physical Exam Vital Signs: Vital Signs: Last Vital Signs Temp 98.4 F 11/16/22 08:00 Pulse 84 11/16/22 08:00 Resp 18 11/16/22 08:00 BP 130/65 11/16/22 08:00 Pulse Ox 93 11/16/22 08:00 O2 Del Method 11/16/22 08:00 O2 Flow Rate 2 11/15/22 14:28 BMI result Body Mass Index 20.3 On exam she is nontoxic Sclera remain anicteric No difficulty breathing is noted Abdomen is soft, less distended with no obvious hernia or peritoneal sign. No tenderness is present NG aspirate is light green; 300 cc is recorded by nursing Objective Data Active Medications Albuterol Sulfate (Albuterol Sulfate 90 Mcg 8 Gm Inhaler) 2 puff INHALE Q6H PRN PRN Reason: Shortness Of Breath Or Wheezing Lactated Ringer's (Lr) 1,000 mls @ 100 mls/hr IVCONT .Q10H REPLACED BY [facility] Last Admin: 11/16/22 04:43 Dose: 125 mls/hr Documented By: DILEEP Acetaminophen (Ofirmev) 1,000 mg in 100 mls @ 400 mls/hr IV Q6H REPLACED BY [facility] Stop: 11/16/22 09:59 Last Infusion: 11/16/22 04:44 Dose: 0 mls/hr Documented By: DILEEP Morphine Sulfate (Morphine Sulfate 4 Mg/Ml Cartridge) 3 mg IVPUSH Q2H PRN; Protocol PRN Reason: Pain, Moderate (Pain Scale 4-6 Multivitamins/Vitamin C (Multivitamin Tablet) 1 tab PO DAILY REPLACED BY [facility] Last Admin: 11/16/22 08:55 Dose: Not Given Documented By: DEAN Non-Admin Reason: NPO Non-Formulary Medication (Inocehirtzb-Rbodscskc-Adbgzcrv [Trelegy Ellipta]) 1 inhalation INHALE DAILY REPLACED BY [facility] Ondansetron HCl (Ondansetron Hcl 4 Mg/2 Ml Vial) 4 mg IVPUSH Q6H PRN PRN Reason: Nausea and Vomiting Pantoprazole Sodium (Pantoprazole Sodium 40 Mg/10 Ml Vial) 40 mg IVPUSH DAILY@0630 REPLACED BY [facility] Last Admin: 11/16/22 06:09 Dose: 40 mg Documented By: DILEEP Pharmacy Consult (Consult Rx Perform Med Rec) 1 each MISCELLANE ONCE PRN PRN Reason: Consult order Labs 11/16/22 05:54 11/16/22 05:54 Labs: Laboratory Results - last 24 hr 11/15/22 11/15/22 11/15/22 09:32 13:15 14:25 MCV 96.0 MCH 30.6 MCHC 31.9 RDW 12.9 Plt Count 544 H MPV 8.6 L Immature Gran % (Auto) 0.3 Neut % (Auto) 74.6 H Lymph % (Auto) 6.9 L [place] % (Auto) 16.4 H Eos % (Auto) 1.2 Baso % (Auto) 0.6 Lymph # (Auto) 0.5 L [place] # (Auto) 1.2 Eos # (Auto) 0.1 Baso # (Auto) 0.0 Abs Immat Gran (auto) 0.02 Absolute Neuts (auto) 5.4 Absolute Nucleated RBC 0.000 Nucleated RBC % (auto) 0.0 Anion Gap Estim Creat Clear Calc Estimated GFR Random Glucose Calcium Prealbumin 26.0 Urine Color Dark Yellow Urine Appearance Clear Urine pH 5.5 Ur Specific [place] >= 1.030 H Urine Protein 30 (1+) H Urine Glucose (UA) Negative Urine Ketones Trace Urine Blood Negative Urine Nitrite Negative Ur Leukocyte Esterase Negative Urine RBC 3-5 H Urine WBC 0-5 Ur Squamous Epith Cells 0-2 Urine Bacteria None Seen Hyaline Casts 0-2 11/16/22 11/16/22 05:54 05:54 MCV 97.4 MCH 30.3 MCHC 31.2 RDW 12.9 Plt Count 447 H MPV 8.9 L Immature Gran % (Auto) 0.2 Neut % (Auto) 56.9 Lymph % (Auto) 22.4 [place] % (Auto) 15.8 H Eos % (Auto) 4.1 H Baso % (Auto) 0.6 Lymph # (Auto) 1.1 L [place] # (Auto) 0.7 Eos # (Auto) 0.2 Baso # (Auto) 0.0 Abs Immat Gran (auto) 0.01 Absolute Neuts (auto) 2.7 Absolute Nucleated RBC 0.000 Nucleated RBC % (auto) 0.0 Anion Gap 11 L Estim Creat Clear Calc 83.8 Estimated GFR > 60 Random Glucose 90 Calcium 8.4 D Prealbumin Urine Color Urine Appearance Urine pH Ur Specific [place] Urine Protein Urine Glucose (UA) Urine Ketones Urine Blood Urine Nitrite Ur Leukocyte Esterase Urine RBC Urine WBC Ur Squamous Epith Cells Urine Bacteria Hyaline Casts Microbiology Microbiology Results: Microbiology 11/15/22 06:20 Blood Culture - Preliminary Blood - Venous No growth after 24 hours. 11/15/22 06:20 Blood Culture - Preliminary Blood - Venous No growth after 24 hours. Procedures Date of Service Date of Service: 11/16/22 Progress Note: A&P Assessment and plan (1) Small bowel obstruction: Status: Acute (2) Irritable bowel syndrome with constipation: Status: Acute (3) Acute hyperglycemia: Status: Acute (4) Leukocytosis: Status: Acute (5) Alkaline phosphatase elevation: Status: Acute Plan I have decreased the patient's IV fluid, see orders I clamped the nasogastric tube around 09:00. Will ask nursing to re start at 1300 for 1 hour and record residual. If the residual is under 300 cc, the NG can be removed. If the patient becomes nauseated or bloated while the tube is clamped, please call me and restart the tube to low intermittent suction Trend labs and physical exam Time Spent With Patient Time: Total time managing care of this patient today ____ minutes. Quality Stroke Does the patient have a stroke diagnosis?: No VTE Prior VTE?: No VTE Risk Level:: Surgical - moderate VTE Device Contraindication: N/A - Device Ordered VTE Drug Contraindication: Treatment Not Indicated
--- NOTE | 2022-11-16 11:11 | PC.NURSE ---
clamped NG tube @ 9:00 w/ orders to return to suction if bloating/nausea/or vomiting occurs. Pt did not tolerate and was returned to low intermittent suction @ 11:10. is aware, and says we can try again tomorrow.
[2022-11-16] MEDS: Lactated Ringers 1,000 ML 100 ML IVCONT ×2 (11:15→18:10)
--- NOTE | 2022-11-16 13:37 | MHC.CM.PN ---
pt lives witgh her dgter and mother they recently moved here from [place] pt is n ot vax has a ride home,she is independet and working home no servceis
[2022-11-16] MEDS: Morphine Sulfate 4 MG/ML CARTRIDGE 3 MG IVPUSH ×2 (13:58→20:43)
[2022-11-16 16:00] VITALS: BP 143/69; PULSE 91; RESP 16; TEMP 36.5; O2SAT 91
[2022-11-16 19:49] VITALS: BP 130/68; PULSE 97; RESP 14; TEMP 36.9; O2SAT 84
[2022-11-16] MEDS: ondansetron HCL 4 MG/2 ML VIAL IVPUSH (20:44)
[2022-11-16 20:58] VITALS: O2SAT 92
--- NOTE | 2022-11-16 22:00 | PC.NURSE ---
Around 2029, Pt O2 was 84% on ra, pt had [place]. 2L n/c applied and brought O2 sat up to 92%.
[2022-11-17] MEDS: Morphine Sulfate 4 MG/ML CARTRIDGE 3 MG IVPUSH ×4 (01:04→19:32)
[2022-11-17 03:54] VITALS: BP 131/69; PULSE 88; RESP 18; TEMP 37; O2SAT 96
[2022-11-17] MEDS: Lactated Ringers 1,000 ML 100 ML IVCONT (04:41)
[2022-11-17] MEDS: Pantoprazole Sodium 40 MG/10 ML VIAL IVPUSH (05:33)
[2022-11-17 06:06] LABS: MANUAL DIFF FLAG NO
[2022-11-17 06:09] LABS: Basophils Percent Auto 0.3 % (0-2); Eosinophils Absolute Auto 0.1 X10*3/uL (0.0-0.4); Eosinophils Percent Auto 1.9 % (0-4); Hematocrit 31.8 % (37.0-47.0); Hemoglobin 9.9 g/dl (12.0-16.0); Imm Gran Abs Auto 0.01 X10*3/uL (0.00-0.03); Imm Gran Pct Auto 0.2 % (0.0-0.4); Lymphocytes Absolute Auto 1.4 X10*3/uL (1.2-4.9); Lymphocytes Percent Auto 24.6 % (20-40); Mean Corpuscular HGB Conc 31.1 g/dl (31.0-35.0); Mean Corpuscular Hemoglobin 30.4 pg (27.0-33.0); Mean Corpuscular Volume 97.5 fL (80.0-98.0); Mean Platelet Volume 9.3 fL (9.4-12.3); Monocytes Absolute Auto 0.7 X10*3/uL (0.1-1.2); Monocytes Percent Auto 11.7 % (2-11); Neutrophils Absolute Auto 3.5 x10*3/uL (2.0-8.3); Neutrophils Percent Auto 61.3 % (45-73); Platelet Count 398 X10*3/uL (160-400); Red Blood Count 3.26 X10*6/uL (4.20-5.50); Red Cell Distribution Width 12.3 % (11.0-16.0); White Blood Count 5.7 X10*3/uL (4.8-10.8)
[2022-11-17 06:48] LABS: Anion Gap 13 (12-20); Blood Urea Nitrogen 16 mg/dL (9-16); Calcium 8.7 mg/dL (8.4-10.2); Carbon Dioxide 24 mmol/L (22-29); Chloride 107 mmol/L (96-108); Creatinine Clr Calc Pharmacy 93.5; Estimated Glomerular Filt Rate > 60; Glucose Random 59 mg/dL (60-115); Potassium 3.7 mmol/L (3.3-5.1); Sodium 140 mmol/L (135-145)
--- NOTE | 2022-11-17 07:03 | PC.NURSE ---
Critical glucose of 59. Pt is NPO and does have NGT in to intermittent suction. Pt A&OX3. MD notified and report given to oncoming RN.
[2022-11-17] MEDS: KCl 20 mEq in 5% Dex/0.45% Sod 20 MEQ/1,000 ML IV.SOLN 80 MEQ IVCONT ×2 (07:46→19:32)
[2022-11-17 08:00] VITALS: BP 147/82; PULSE 89; RESP 18; TEMP 37.2; O2SAT 93
--- NOTE | 2022-11-17 09:00 | P.PNGS_ITS ---
Subjective Subjective Date of Service: 11/17/22 Patient reports: flatus and no bowel movement Interval history: The patient reports that she still feels a little bloated but is passing gas. She notes irritation from the nasogastric tube in question whether this is contributing to her nausea. She has had no bowel movement and would like Tylenol instead of narcotics because the pain is minimal. The patient otherwise denies pain in her chest, trouble breathing, shortness of breath. She is getting up and walking around but is only drawing less than a 1000 cc on incentive spirometry. Physical Exam Vital Signs: Vital Signs: Last Vital Signs Temp 98.6 F 11/17/22 03:54 Pulse 88 11/17/22 03:54 Resp 18 11/17/22 03:54 BP 131/69 11/17/22 03:54 Pulse Ox 96 11/17/22 03:54 O2 Del Method 11/17/22 03:54 O2 Flow Rate 2 11/17/22 03:54 BMI result Body Mass Index 20.3 On exam she is nontoxic Sclera remain anicteric There is no respiratory distress Abdomen remains soft and nondistended. No peritoneal irritation to percussion and no tenderness is noted. No hernias are present. Objective Data Active Medications Albuterol Sulfate (Albuterol Sulfate 90 Mcg 8 Gm Inhaler) 2 puff INHALE Q6H PRN PRN Reason: Shortness Of Breath Or Wheezing Potassium Chloride/Dextrose/Sod Cl (Kcl 20 Meq In 5% Dex/0.45% Sod) 20 meq in 1,000 mls @ 80 mls/hr IVCONT .[id number] [facility] Last Admin: 11/17/22 07:46 Dose: 80 mls/hr Documented By: DEAN Morphine Sulfate (Morphine Sulfate 4 Mg/Ml Cartridge) 3 mg IVPUSH Q2H PRN; Protocol PRN Reason: Pain, Moderate (Pain Scale 4-6 Last Admin: 11/17/22 06:13 Dose: 3 mg Documented By: JOSÉ MIGUEL Multivitamins/Vitamin C (Multivitamin Tablet) 1 tab PO DAILY [facility] Last Admin: 11/16/22 08:55 Dose: Not Given Documented By: DEAN Non-Admin Reason: NPO Non-Formulary Medication (Zevujeqqkay-Dbjehbldo-Ageslciu [Trelegy Ellipta]) 1 inhalation INHALE DAILY [facility] Ondansetron HCl (Ondansetron Hcl 4 Mg/2 Ml Vial) 4 mg IVPUSH Q6H PRN PRN Reason: Nausea and Vomiting Last Admin: 11/16/22 20:44 Dose: 4 mg Documented By: JOSÉ MIGUEL Pantoprazole Sodium (Pantoprazole Sodium 40 Mg/10 Ml Vial) 40 mg IVPUSH DAILY@0630 [facility] Last Admin: 11/17/22 05:33 Dose: 40 mg Documented By: JOSÉ MIGUEL Pharmacy Consult (Consult Rx Perform Med Rec) 1 each MISCELLANE ONCE PRN PRN Reason: Consult order Labs 11/17/22 05:19 11/17/22 05:19 Labs: Laboratory Results - last 24 hr 11/17/22 11/17/22 05:19 05:19 MCV 97.5 MCH 30.4 MCHC 31.1 RDW 12.3 Plt Count 398 MPV 9.3 L Immature Gran % (Auto) 0.2 Neut % (Auto) 61.3 Lymph % (Auto) 24.6 [facility] % (Auto) 11.7 H Eos % (Auto) 1.9 Baso % (Auto) 0.3 Lymph # (Auto) 1.4 [facility] # (Auto) 0.7 Eos # (Auto) 0.1 Baso # (Auto) 0.0 Abs Immat Gran (auto) 0.01 Absolute Neuts (auto) 3.5 Absolute Nucleated RBC 0.000 Nucleated RBC % (auto) 0.0 Anion Gap 13 Estim Creat Clear Calc 93.5 Estimated GFR > 60 Random Glucose 59 L* Calcium 8.7 Microbiology Microbiology Results: Microbiology 11/15/22 06:20 Blood Culture - Preliminary Blood - Venous No growth after 48 hours. 11/15/22 06:20 Blood Culture - Preliminary Blood - Venous No growth after 48 hours. Procedures Date of Service Date of Service: 11/17/22 Progress Note: A&P Assessment and plan (1) Small bowel obstruction: Status: Acute (2) Irritable bowel syndrome with constipation: Status: Acute Plan While the patient is passing some flatus, we discussed a nasogastric clamping schedule again and she declined stating that she had a restless night like to try to get some rest. The importance of being out of bed walking and working on incentive spirometry to stimulate bowel activity was discussed and apparently understood. IV fluid change due to the blood glucose of 59 (low normal is 60) during which time the patient had no tachycardia, diaphoresis or other symptoms. Patient may have ice chips for comfort but monitor how much is going in; Chloraseptic spray ordered; IV Tylenol p.r.n. pain is also ordered. Time Spent With Patient Time: Total time managing care of this patient today ____ minutes. Quality Stroke Does the patient have a stroke diagnosis?: No VTE Prior VTE?: No VTE Risk Level:: Surgical - moderate VTE Device Contraindication: N/A - Device Ordered VTE Drug Contraindication: Treatment Not Indicated
[2022-11-17] MEDS: Acetaminophen 1,000 MG/100 ML PIGGYBACK 400 MG IV ×2 (10:18→23:10)
[2022-11-17 15:51] VITALS: BP 140/80; PULSE 84; RESP 16; TEMP 36.6; O2SAT 93
[2022-11-17 19:43] VITALS: BP 150/74; PULSE 92; RESP 16; TEMP 36.4; O2SAT 92
[2022-11-18] MEDS: Morphine Sulfate 4 MG/ML CARTRIDGE 3 MG IVPUSH ×2 (00:19→19:38)
[2022-11-18 04:00] VITALS: BP 147/73; PULSE 78; RESP 16; TEMP 37.1; O2SAT 88
[2022-11-18] MEDS: Pantoprazole Sodium 40 MG/10 ML VIAL IVPUSH (05:54)
[2022-11-18 06:58] LABS: MANUAL DIFF FLAG NO
[2022-11-18 07:20] LABS: Basophils Percent Auto 0.3 % (0-2); Eosinophils Absolute Auto 0.1 X10*3/uL (0.0-0.4); Eosinophils Percent Auto 1.1 % (0-4); Hemoglobin 9.8 g/dl (12.0-16.0); Imm Gran Abs Auto 0.05 X10*3/uL (0.00-0.03); Imm Gran Pct Auto 0.5 % (0.0-0.4); Lymphocytes Percent Auto 10.8 % (20-40); Mean Corpuscular HGB Conc 31.6 g/dl (31.0-35.0); Mean Corpuscular Hemoglobin 30.7 pg (27.0-33.0); Mean Corpuscular Volume 97.2 fL (80.0-98.0); Mean Platelet Volume 9.7 fL (9.4-12.3); Monocytes Percent Auto 11.1 % (2-11); Neutrophils Percent Auto 76.2 % (45-73); Platelet Count 404 X10*3/uL (160-400); Red Blood Count 3.19 X10*6/uL (4.20-5.50); Red Cell Distribution Width 12.2 % (11.0-16.0); White Blood Count 9.2 X10*3/uL (4.8-10.8)
--- NOTE | 2022-11-18 07:21 | P.PNGS_ITS ---
Subjective Subjective Date of Service: 11/18/22 Patient reports: no new complaints, still having pain, flatus and no bowel movement Interval history: That overall, she believe she feels better, but she still having cramping intermittently. She is not sure whether the cramping is due to her constipation/irritable bowel syndrome or the bowel obstruction. She is passing gas and denies any chest pain, difficulty breathing or shortness of breath. She otherwise has no new complaints. She is anxious about premature removal of the NG tube given the unpleasantness of insertion. Physical Exam Vital Signs: Vital Signs: Last Vital Signs Temp 98.7 F 11/18/22 04:00 Pulse 78 11/18/22 04:00 Resp 16 11/18/22 04:00 BP 147/73 H 11/18/22 04:00 Pulse Ox 88 L 11/18/22 04:00 O2 Del Method 11/18/22 04:00 O2 Flow Rate 1.5 11/17/22 19:43 BMI result Body Mass Index 20.3 On exam she is nontoxic Abdomen is unchanged with no peritoneal sign Objective Data Active Medications Albuterol Sulfate (Albuterol Sulfate 90 Mcg 8 Gm Inhaler) 2 puff INHALE Q6H PRN PRN Reason: Shortness Of Breath Or Wheezing Potassium Chloride/Dextrose/Sod Cl (Kcl 20 Meq In 5% Dex/0.45% Sod) 20 meq in 1,000 mls @ 80 mls/hr IVCONT .[id number] ANU Last Infusion: 11/17/22 21:37 Dose: 0 mls/hr Documented By: JINA Acetaminophen ([facility]) 1,000 mg in 100 mls @ 400 mls/hr IV Q6H PRN PRN Reason: Pain, Mild (Pain Scale 1-3) Last Infusion: 11/17/22 23:28 Dose: 0 mls/hr Documented By: JINA Morphine Sulfate (Morphine Sulfate 4 Mg/Ml Cartridge) 3 mg IVPUSH Q2H PRN; Protocol PRN Reason: Pain, Moderate (Pain Scale 4-6 Last Admin: 11/18/22 00:19 Dose: 3 mg Documented By: JINA Multi-Ingred Medicated Throat [place] (Throat [place], Medicated 177 Ml Bottle) 1 spray MUCOUS MEM Q2H PRN PRN Reason: Sore Throat Multivitamins/Vitamin C (Multivitamin Tablet) 1 tab PO DAILY [facility] Last Admin: 11/16/22 08:55 Dose: Not Given Documented By: DEAN Non-Admin Reason: NPO Non-Formulary Medication (Ykddykmknce-Hptamoalr-Lcfapukx [Trelegy Ellipta]) 1 inhalation INHALE DAILY [facility] Ondansetron HCl (Ondansetron Hcl 4 Mg/2 Ml Vial) 4 mg IVPUSH Q6H PRN PRN Reason: Nausea and Vomiting Last Admin: 11/16/22 20:44 Dose: 4 mg Documented By: JOSÉ MIGUEL Pantoprazole Sodium (Pantoprazole Sodium 40 Mg/10 Ml Vial) 40 mg IVPUSH DAILY@0630 [facility] Last Admin: 11/18/22 05:54 Dose: 40 mg Documented By: JINA Pharmacy Consult (Consult Rx Perform Med Rec) 1 each MISCELLANE ONCE PRN PRN Reason: Consult order Labs 11/18/22 06:10 11/17/22 05:19 Labs: Laboratory Results - last 24 hr 11/18/22 06:10 MCV 97.2 MCH 30.7 MCHC 31.6 RDW 12.2 Plt Count 404 H MPV 9.7 Immature Gran % (Auto) 0.5 H Neut % (Auto) 76.2 H Lymph % (Auto) 10.8 L [place] % (Auto) 11.1 H Eos % (Auto) 1.1 Baso % (Auto) 0.3 Lymph # (Auto) 1.0 L [place] # (Auto) 1.0 Eos # (Auto) 0.1 Baso # (Auto) 0.0 Abs Immat Gran (auto) 0.05 H Absolute Neuts (auto) 7.0 Absolute Nucleated RBC 0.000 Nucleated RBC % (auto) 0.0 Microbiology Microbiology Results: Microbiology 11/15/22 06:20 Blood Culture - Preliminary Blood - Venous No growth after 48 hours. 11/15/22 06:20 Blood Culture - Preliminary Blood - Venous No growth after 48 hours. Procedures Date of Service Date of Service: 11/18/22 Progress Note: A&P Assessment and plan (1) Small bowel obstruction: Status: Acute (2) Irritable bowel syndrome with constipation: Status: Acute Plan The patient's daughter is at the bedside in the patient requested I update her. Explained about scar tissue and constipation and reviewed options including a Gastrografin small-bowel follow-through or nasogastric clamping schedule again. After discussing the pros and cons, the patient wanted to follow my recommendation for a Gastrografin small-bowel follow-through which has been ordered. Continue NG and IV fluid for now. NG tube will need to be clamped for the Gastrografin study. I explained to the patient she will have cramping given the stool burden from her chronic constipation and that this may be normal and not necessarily indicative of a need for operative intervention. Will need to assess the small bowel with the study. Time Spent With Patient Time: Total time managing care of this patient today ____ minutes. Quality Stroke Does the patient have a stroke diagnosis?: No VTE Prior VTE?: No VTE Risk Level:: Surgical - moderate VTE Device Contraindication: N/A - Device Ordered VTE Drug Contraindication: Treatment Not Indicated
[2022-11-18 07:23] LABS: Anion Gap 15 (12-20); Blood Urea Nitrogen 8 mg/dL (9-16); Calcium 8.6 mg/dL (8.4-10.2); Carbon Dioxide 26 mmol/L (22-29); Chloride 103 mmol/L (96-108); Creatinine Clr Calc Pharmacy 101.3; Estimated Glomerular Filt Rate > 60; Glucose Random 76 mg/dL (60-115); Potassium 3.7 mmol/L (3.3-5.1); Sodium 140 mmol/L (135-145)
[2022-11-18 07:47] VITALS: BP 162/77; PULSE 95; RESP 18; TEMP 36.8; O2SAT 90
[2022-11-18] MEDS: Acetaminophen 1,000 MG/100 ML PIGGYBACK 400 MG IV (12:29)
[2022-11-18 16:00] VITALS: BP 160/72; PULSE 86; RESP 18; TEMP 36.9; O2SAT 90
[2022-11-18 20:00] VITALS: BP 133/70; PULSE 88; RESP 16; TEMP 36.8; O2SAT 92
[2022-11-19] MEDS: KCl 20 mEq in 5% Dex/0.45% Sod 20 MEQ/1,000 ML IV.SOLN 80 MEQ IVCONT ×2 (01:09→13:51)
[2022-11-19 03:55] VITALS: BP 154/74; PULSE 94; RESP 15; TEMP 37.3; O2SAT 91
[2022-11-19] MEDS: Morphine Sulfate 4 MG/ML CARTRIDGE 3 MG IVPUSH (04:05)
[2022-11-19] MEDS: Pantoprazole Sodium 40 MG/10 ML VIAL IVPUSH (05:14)
[2022-11-19 06:23] LABS: MANUAL DIFF FLAG NO
[2022-11-19 06:37] LABS: Basophils Percent Auto 0.3 % (0-2); Eosinophils Absolute Auto 0.1 X10*3/uL (0.0-0.4); Eosinophils Percent Auto 0.5 % (0-4); Hematocrit 32.6 % (37.0-47.0); Hemoglobin 10.6 g/dl (12.0-16.0); Imm Gran Abs Auto 0.04 X10*3/uL (0.00-0.03); Imm Gran Pct Auto 0.4 % (0.0-0.4); Lymphocytes Absolute Auto 0.8 X10*3/uL (1.2-4.9); Mean Corpuscular HGB Conc 32.5 g/dl (31.0-35.0); Mean Corpuscular Hemoglobin 31.2 pg (27.0-33.0); Mean Corpuscular Volume 95.9 fL (80.0-98.0); Mean Platelet Volume 9.6 fL (9.4-12.3); Monocytes Percent Auto 9.6 % (2-11); Neutrophils Absolute Auto 8.4 x10*3/uL (2.0-8.3); Neutrophils Percent Auto 81.2 % (45-73); Platelet Count 415 X10*3/uL (160-400); Red Cell Distribution Width 12.2 % (11.0-16.0); White Blood Count 10.4 X10*3/uL (4.8-10.8)
[2022-11-19 07:01] LABS: Alanine Aminotransferase 25 U/L (0-31); Albumin Level 3.2 g/dL (3.5-5.0); Alkaline Phosphatase 115 U/L (39-117); Anion Gap 15 (12-20); Aspartate Amino Transferase 22 U/L (5-31); Bilirubin Total 0.4 mg/dL (0.0-1.0); Blood Urea Nitrogen 6 mg/dL (9-16); Calcium 8.5 mg/dL (8.4-10.2); Carbon Dioxide 25 mmol/L (22-29); Chloride 103 mmol/L (96-108); Creatinine Clr Calc Pharmacy 86.9; Estimated Glomerular Filt Rate > 60; Glucose Random 121 mg/dL (60-115); Potassium 3.5 mmol/L (3.3-5.1); Sodium 139 mmol/L (135-145); Total Protein 5.3 g/dL (6.5-8.0)
[2022-11-19 07:28] VITALS: BP 169/89; PULSE 96; RESP 18; TEMP 36.9; O2SAT 92
--- NOTE | 2022-11-19 07:39 | PM.PNGS ---
Subjective Subjective Date of Service: 11/19/22 Patient reports: no new complaints and feels better Interval history: The patient reports she is continuing to pass gas but she was not having any more bowel movements, consequently, she refused to have her nasogastric tube removed at 06:00 is ordered. She reports a vague crampy abdominal pain but is noted has flatus and had numerous bowel movements yesterday. Explained to the patient that her obstruction is completely resolved as evidence by progress of the Gastrografin contrast to her colon within 90 minutes and the NG tube needs to be removed in order for her to start a diet and likely be DC later today. Patient has had concerns about not having a local physician or advertising agency manager regarding her chronic health problems Physical Exam Vital Signs: Vital Signs: Last Vital Signs Temp 98.5 F 11/19/22 07:28 Pulse 96 11/19/22 07:28 Resp 18 11/19/22 07:28 BP 169/89 H 11/19/22 07:28 Pulse Ox 92 11/19/22 07:28 O2 Del Method 11/19/22 07:28 O2 Flow Rate 2 11/18/22 16:00 BMI result Body Mass Index 20.3 On exam, she is nontoxic Her abdomen is soft and nontender. She reports some diffuse discomfort but no rebound, rigidity, guarding or acute surgical findings are present Objective Data Active Medications Albuterol Sulfate (Albuterol Sulfate 90 Mcg 8 Gm Inhaler) 2 puff INHALE Q6H PRN PRN Reason: Shortness Of Breath Or Wheezing Docusate Sodium (Docusate Sodium 100 Mg Capsule) 200 mg PO BID ANU Potassium Chloride/Dextrose/Sod Cl (Kcl 20 Meq In 5% Dex/0.45% Sod) 20 meq in 1,000 mls @ 80 mls/hr IVCONT .[id number] ANU Last Admin: 11/19/22 01:09 Dose: 80 mls/hr Documented By: JINA Acetaminophen (Ofirmev) 1,000 mg in 100 mls @ 400 mls/hr IV Q6H PRN PRN Reason: Pain, Mild (Pain Scale 1-3) Last Infusion: 11/18/22 12:48 Dose: 0 mls/hr Documented By: DEAN Morphine Sulfate (Morphine Sulfate 4 Mg/Ml Cartridge) 3 mg IVPUSH Q2H PRN; Protocol PRN Reason: Pain, Moderate (Pain Scale 4-6 Last Admin: 11/19/22 04:05 Dose: 3 mg Documented By: JINA Multi-Ingred Medicated Throat [place] (Throat [place], Medicated 177 Ml Bottle) 1 spray MUCOUS MEM Q2H PRN PRN Reason: Sore Throat Multivitamins/Vitamin C (Multivitamin Tablet) 1 tab PO DAILY [facility] Last Admin: 11/18/22 08:53 Dose: Not Given Documented By: DEAN Non-Admin Reason: NPO Non-Formulary Medication (Whtuducpado-Isvxleigs-Gvchsysn [Trelegy Ellipta]) 1 inhalation INHALE DAILY [facility] Ondansetron HCl (Ondansetron Hcl 4 Mg/2 Ml Vial) 4 mg IVPUSH Q6H PRN PRN Reason: Nausea and Vomiting Last Admin: 11/16/22 20:44 Dose: 4 mg Documented By: JOSÉ MIGUEL Pantoprazole Sodium (Pantoprazole Sodium 40 Mg/10 Ml Vial) 40 mg IVPUSH DAILY@0630 [facility] Last Admin: 11/19/22 05:14 Dose: 40 mg Documented By: JINA Pharmacy Consult (Consult Rx Perform Med Rec) 1 each MISCELLANE ONCE PRN PRN Reason: Consult order Labs 11/19/22 05:23 11/19/22 05:23 Labs: Laboratory Results - last 24 hr 11/19/22 11/19/22 05:23 05:23 MCV 95.9 MCH 31.2 MCHC 32.5 RDW 12.2 Plt Count 415 H MPV 9.6 Immature Gran % (Auto) 0.4 Neut % (Auto) 81.2 H Lymph % (Auto) 8.0 L [place] % (Auto) 9.6 Eos % (Auto) 0.5 Baso % (Auto) 0.3 Lymph # (Auto) 0.8 L [place] # (Auto) 1.0 Eos # (Auto) 0.1 Baso # (Auto) 0.0 Abs Immat Gran (auto) 0.04 H Absolute Neuts (auto) 8.4 H Absolute Nucleated RBC 0.000 Nucleated RBC % (auto) 0.0 Anion Gap 15 Estim Creat Clear Calc 86.9 Estimated GFR > 60 Random Glucose 121 H Calcium 8.5 Total Bilirubin 0.4 AST 22 ALT 25 Alkaline Phosphatase 115 Total Protein 5.3 L Albumin 3.2 L Procedures Date of Service Date of Service: 11/19/22 Progress Note: A&P Assessment and plan (1) Small bowel obstruction: Status: Acute (2) Irritable bowel syndrome with constipation: Status: Acute Plan Remove nasogastric tube now Start clear liquids Possible discharge later today Time Spent With Patient Time: Total time managing care of this patient today ____ minutes. Quality Stroke Does the patient have a stroke diagnosis?: No VTE Prior VTE?: No VTE Risk Level:: Surgical - moderate VTE Device Contraindication: N/A - Device Ordered VTE Drug Contraindication: Treatment Not Indicated
[2022-11-19] MEDS: Multivitamin TABLET 1 TAB PO (10:20)
--- NOTE | 2022-11-19 12:47 | P.CDIC_ITS ---
CDI Concurrent Query Documentation Clarification: PHYSICIAN'S DOCUMENTATION REQUEST Date of Query: 11/19/22 1248 Patient Name: Anya Eden Admit Date: 11/15/22 Dear Doctor, A review of the medical record indicates additional documentation may be needed. Please review below and update the documentation accordingly. Risk Factors/Clinical Indicators/Treatments Patient was admitted with abdominal pain, nausea and vomiting. Per MD progress note 11/19/22: obstruction is completely resolved as evidence by progress of the Gastrografin contrast to her colon within 90 minutes? the patient presented with a small-bowel obstruction. Following naso gastric decompression it resolved. Based on the above, could you clarify in the Progress Notes the appropriate diagnosis, if significant, that supports the above abnormalities and additional evaluation, monitoring, and/or treatment rendered: * Partial small bowel obstruction * Complete small bowel obstruction * Other (please specify) * Unable to determine Use of terms such as suspected, likely, concern for, or probable (associated with a specific diagnosis that is being evaluated, monitored, or treated as if it exists) are acceptable and can be coded in the inpatient setting, when documented at the time of discharge. Thank you, Yolis Hdez RN Extension: [phone] Please use your independent medical judgment in providing your response. THIS QUERY IS PART OF THE PERMANENT MEDICAL RECORD Provider Response: Other Other Diagnosis: SBO
[2022-11-19 15:02] VITALS: BP 145/76; PULSE 77; RESP 18; TEMP 37.1; O2SAT 98
[2022-11-19] MEDS: Acetaminophen 325 MG TABLET 650 MG PO (15:30)
--- NOTE | 2022-11-19 16:37 | PM.DS ---
DS: Providers Provider Date of Service: 11/19/22 Date of admission: 11/15/22 09:03 Primary care physician: None Physician Consults: 11/15/22 07:33 Consult to General Surgery Stat Consulting Provider: Darren May Reason for consultation: SBO DS: Diagnosis Discharge Diagnosis (1) Small bowel obstruction: Status: Acute (2) Irritable bowel syndrome with constipation: Status: Acute DS: Summary Hospital Course Hospital Course: See admitting H and P for full details. Briefly, this is a 62-year-old woman with chronic constipation and irritable bowel syndrome who had an unknown operation is an infant to deal with an intestinal problem. The patient has had chronic constipation and returned from the [place] to [facility]. She does not have a PCP and after several days of not having a bowel movement, took 2 cwqa-[id number], unknown laxatives with no results. Later that day, she took 2 additional laxatives provided by her mother and then developed crampy abdominal pain and vomiting. She presented to the emergency room with what appeared to be a small-bowel obstruction on CT. Nasogastric decompression was performed, she was admitted for IV hydration and bowel rest and by hospital day 1, she was passing gas and had resolution of her abdominal pain, however, due to the distress she experience with insertion of a nasogastric tube, she did not want it removed. The next day she was still reluctant to have the tube removed, so a Gastrografin study confirmed that her bowels were patent with contrast present in the colon after 90 minutes. She was still hesitant to have the tube removed, so ultimately a it was removed earlier this morning and the patient has been tolerating clear liquids, having no abdominal pain and having bowel movements. She will advanced to her regular diet at home. She is instructed to use stool softeners and obtain a PCP and consider finding a clinical data associate if her PCP is not comfortable dealing with irritable bowel syndrome. Overall condition at the time of discharge is improved. Time spent discussing smoking cessation with patient: more than 10 minutes Time Spent with Patient Time attestation: Total time managing care of this patient today ____ minutes. Discharge coordination time: Greater than 30 minutes Quality: Safe Use of Opioids Does Pt have an Active Cancer Diagnosis on the Problem List?: No Quality: Stroke Does the patient have a stroke diagnosis?: No Physical Exam Vital Signs: Vital Signs: Last Vital Signs Temp 98.7 F 11/19/22 15:02 Pulse 77 11/19/22 15:02 Resp 18 11/19/22 15:02 BP 145/76 H 11/19/22 15:02 Pulse Ox 98 11/19/22 15:02 O2 Del Method 11/19/22 15:02 O2 Flow Rate 2 11/18/22 16:00 BMI result Body Mass Index 20.3 DS: Data Data Completed and Pending Labs on day of discharge: Laboratory Results - last 24 hr 11/19/22 11/19/22 05:23 05:23 WBC 10.4 RBC 3.40 L Hgb 10.6 L Hct 32.6 L MCV 95.9 MCH 31.2 MCHC 32.5 RDW 12.2 Plt Count 415 H MPV 9.6 Immature Gran % (Auto) 0.4 Neut % (Auto) 81.2 H Lymph % (Auto) 8.0 L [place] % (Auto) 9.6 Eos % (Auto) 0.5 Baso % (Auto) 0.3 Lymph # (Auto) 0.8 L [place] # (Auto) 1.0 Eos # (Auto) 0.1 Baso # (Auto) 0.0 Abs Immat Gran (auto) 0.04 H Absolute Neuts (auto) 8.4 H Absolute Nucleated RBC 0.000 Nucleated RBC % (auto) 0.0 Sodium 139 Potassium 3.5 Chloride 103 Carbon Dioxide 25 Anion Gap 15 BUN 6 L Creatinine 0.56 Estim Creat Clear Calc 86.9 Estimated GFR > 60 Random Glucose 121 H Calcium 8.5 Total Bilirubin 0.4 AST 22 ALT 25 Alkaline Phosphatase 115 Total Protein 5.3 L Albumin 3.2 L Preliminary micro results at discharge 11/15/22 06:20 Blood Culture - Preliminary Blood - Venous No growth after 48 hours. 11/15/22 06:20 Blood Culture - Preliminary Blood - Venous No growth after 48 hours. Discharge Plan Discharge Anticipated Discharge Date/Time: 11/19/22 16:35 Patient Disposition: Home, Self-Care Discharge Diagnosis: SBO Referrals: Physician,None [Primary Care Provider] - 1 Week Discharge Medications: New docusate sodium 100 mg Capsule 200 mg PO BID Qty: 90 0RF Continued multivitamin Tablet 1 tab PO DAILY ibuprofen 200 mg Tablet 400 mg PO Q8H PRN (Reason: Pain) albuterol sulfate [ProAir HFA] 90 mcg/actuation Hfa Aerosol Inhaler 2 puff INHALATION Q6H PRN (Reason: Shortness Of Breath Or Wheezing) cholecalciferol (vitamin D3) [Vitamin D3] 25 mcg (1,000 unit) Tablet 25 mcg PO DAILY [facility] [place] 100-62.5-25 mcg Blister With Device 1 inh INHALATION DAILY Discharge Orders: Discharge Order (Routine); Ordered 11/19/22 Ordered By: Darren May Diet: Advance to usual diet Activity on Discharge: As tolerated Stand Alone Forms: Patient Portal Discharge page Activity Restrictions/Additional Instructions: Your treated by Dr. May because of a bowel obstruction that resolved. This may never happen again, but if you experience crampy abdominal pain and vomiting, you should be evaluated at the nearest emergency room. Likewise, if he develops chest pain, difficulty breathing, shortness of breath or other concerning symptoms, please report to the nearest emergency department for evaluation. You need to find a primary care provider to address her medical problems since these need to be addressed. You may need to consider evaluation by a gastrointestinal specialist for your irritable bowel syndrome and constipation features. In the meantime, I would recommend that you take awnn-sbp-ucqeuxd docusate/Colace, 100 m tablets in the morning and 2 tablets in the evening every day until you see how these affect you. You may need stronger medication which will require a prescription from your PCP or clinical data associate. Alternately, you can take 1 or 2 doses of dbem-orq-nadxhms MiraLax every day. Do not take more than 1 dose of a laxative tablet or laxative medication unless instructed to do so by a physician. Care Plan Goals: Find a PCP to discuss your chronic constipation issue in whether not a clinical data associate will be required Health Concerns: Chronic constipation and age related health issues need to be followed by your PCP Plan of Treatment: Establish care with a PCP Assessment: SBO, likely exacerbated by use of multiple laxatives, resolved
== END 2022-11-19 18:15 | disposition home or self-care (01) | DRG 247 ==
LOC: HO.ED 08:16 → HO.EDOVER 09:15 → HO.S3 11:44
PROVIDERS: Internal Medicine; Admitting Provider Surgery; Emergency Provider Emergency Medicine; Visit Provider Surgery
DX: K56.609 Unspecified intestinal obstruction, unspecified as to partial versus complete obstruction (principal); J44.9 Chronic obstructive pulmonary disease, unspecified; K58.1 Irritable bowel syndrome with constipation; E86.0 Dehydration; D75.839 Thrombocytosis, unspecified; R73.9 Hyperglycemia, unspecified; K40.90 Unilateral inguinal hernia, without obstruction or gangrene, not specified as recurrent; D72.829 Elevated white blood cell count, unspecified; Z88.0 Allergy status to penicillin; Z20.822 Contact with and (suspected) exposure to COVID-19; Z88.5 Allergy status to narcotic agent; Z79.899 Other long term (current) drug therapy
CPT/HCPCS: 0241U; 36415; 71045; 74176; 74250; 80048; 80053; 81001; 83036; 83605; 83690; 84134; 85025; 87040; 93005; 99285; J0131; J2060; J2270; J2405

== ENCOUNTER 2022-11-22 16:45 | Outpatient (REF) | payer BC, SELFPAY | END 2022-11-22 16:46 | disposition home or self-care (01) | LOC: HO.HOSX 16:45 | PROVIDERS: Visit Provider Physician Assistant | DX: Z13.89 Encounter for screening for other disorder (principal) ==

== ENCOUNTER 2023-06-03 11:07 | Outpatient (AMB) | payer BC, SELFPAY ==
--- NOTE | 2023-06-03 11:50 | MHC.OFFWIV ---
Intake Vital Signs 06/03/23 11:54 Height 5 ft 2 in BP 136/84 Blood Pressure Location Rt brachial Position Sitting Pulse 68 Pulse Source Pulse Oximeter Temp 98.6 F Temp Source Oral Pulse Oximetry (%) 97 Oxygen Delivery Method Room Air Intake Visit Reasons: EST/COPD acting up Patient Tobacco Use Status: Never used Tobacco Allergies oxycodone [From Percocet] Allergy (Verified 06/03/23 12:06) Headache Penicillins Allergy (Verified 06/03/23 12:06) Nausea and Vomiting Medication List - Last Reconciled 06/03/23 by Prem Acevedo MD albuterol sulfate 90 mcg/actuation (ProAir HFA) 2 puffs inhalation Q6H PRN cholecalciferol (vitamin D3) (Vitamin D3) 25 mcg PO DAILY docusate sodium 200 mg (2 x 100 mg) PO BID yhwqnztueyh-ehyxmxbvm-ewednyzz 100-62.5-25 mcg (Trelegy Ellipta) 1 inh inhalation DAILY ibuprofen 400 mg PO Q8H PRN multivitamin 1 tab PO DAILY Do you need a note to return to daycare/school/sports/work: No HPI EST/COPD acting up HPI Details Patient presents for a sick visit. Reporting symptoms of sinus congestion, sore throat and difficulty swallowing. Low-grade fever. No family member is sick. No recent travel. Patient reports symptoms of malaise and fatigue. [facility] Social History Household Members: Family Household Members Other:: mother and daughter Housing: House Do you presently have visiting nurse or other home services: No Patient Tobacco Use Status: Never used Tobacco service: No Physical Exam Vital Signs: Last Vital Signs Temp 98.6 F 06/03/23 11:54 Pulse 68 06/03/23 11:54 BP 136/84 06/03/23 11:54 Pulse Ox 97 06/03/23 11:54 Oxygen Delivery Method Room Air 06/03/23 11:54 Const General: cooperative and healthy appearing Nutritional Appearance: well nourished Orientation/consciousness: patient oriented x3 Limitations: no limitations HEENT Head: Yes normal to inspection Eyes General: appearance normal, both eyes and all related structures Neck Neck: Yes normal visual inspection Chest Chest palpation & inspection: normal palpation of entire chest wall Resp Effort & Inspection: normal respiratory effort Neuro General: patient oriented x3 Assessment & Plan Assessment & Plan (1) Upper respiratory tract infection: Code(s): J06.9 - Acute upper respiratory infection, unspecified Plan: Antibiotics ordered. Increase fluid intake. Tylenol for aches and pains. If symptoms worsen, follow-up here for a recheck. Coding Level of Care Code Est Pt Level 3 (47093) Diagnoses Upper respiratory tract infection J06.9
[2023-06-03 11:54] VITALS: BP 136/84; PULSE 68; TEMP 37; O2SAT 97
== END 2023-06-03 12:10 | disposition home or self-care (01) ==
PROVIDERS: Visit Provider Internal Medicine
DX: J06.9 Acute upper respiratory infection, unspecified (principal)
CPT/HCPCS: 99213

== ENCOUNTER 2023-11-13 12:36 | Outpatient (REF) | payer BC, SELFPAY ==
--- NOTE | ~2023-11-13 | XR_ITS ---
EXAMINATION: XR hand RT min 3V, XR hand LT min 3V CLINICAL INFORMATION: Bilateral hand pain COMPARISON: None TECHNIQUE: 3 views of the bilateral hands FINDINGS: RIGHT HAND: No fracture or dislocation. Advanced osteoarthritis predominantly involving the first carpometacarpal joint with complete loss of joint space and remodeling of the trapezium. There is more mild to moderate osteoarthritis involving the distal interphalangeal joints. Subchondral cystic change in the fifth metacarpal head. Soft tissues are unremarkable. LEFT HAND: No fracture or dislocation. Advanced osteoarthritis predominantly involving the first carpometacarpal joint and fifth distal interphalangeal joint with complete loss of joint space, and bony remodeling of the trapezium. More mild osteoarthritis involving the remainder of the distal interphalangeal joints. Soft tissues are unremarkable. XR/XR hand RT min 3V IMPRESSION: 1. Advanced osteoarthritis predominantly involving the bilateral first carpometacarpal joints and left fifth distal interphalangeal joint with complete loss of joint space and remodeling of the bilateral trapezium.
--- NOTE | ~2023-11-13 | XR_ITS ---
EXAMINATION: XR hand RT min 3V, XR hand LT min 3V CLINICAL INFORMATION: Bilateral hand pain COMPARISON: None TECHNIQUE: 3 views of the bilateral hands FINDINGS: RIGHT HAND: No fracture or dislocation. Advanced osteoarthritis predominantly involving the first carpometacarpal joint with complete loss of joint space and remodeling of the trapezium. There is more mild to moderate osteoarthritis involving the distal interphalangeal joints. Subchondral cystic change in the fifth metacarpal head. Soft tissues are unremarkable. LEFT HAND: No fracture or dislocation. Advanced osteoarthritis predominantly involving the first carpometacarpal joint and fifth distal interphalangeal joint with complete loss of joint space, and bony remodeling of the trapezium. More mild osteoarthritis involving the remainder of the distal interphalangeal joints. Soft tissues are unremarkable. XR/XR hand LT min 3V IMPRESSION: 1. Advanced osteoarthritis predominantly involving the bilateral first carpometacarpal joints and left fifth distal interphalangeal joint with complete loss of joint space and remodeling of the bilateral trapezium.
== END 2023-11-13 12:37 | disposition home or self-care (01) ==
LOC: HO.HHCX 12:36
PROVIDERS: Visit Provider Student in an Organized Health Care Education/Training Program
DX: M79.641 Pain in right hand (principal); M79.642 Pain in left hand
CPT/HCPCS: 73130

== ENCOUNTER 2023-12-02 08:23 | Outpatient (REF) | payer BC, SELFPAY ==
--- NOTE | ~2023-12-02 | MM_ITS ---
EXAMINATION: MM SCREENING DIGITAL BREAST TOMOSYNTHESIS, BILATERAL CLINICAL INFORMATION: Screening. Asymptomatic. COMPARISON: Mammography: There are no prior mammograms for comparison. TECHNIQUE: Digital breast tomosynthesis is performed in both the craniocaudal and mediolateral oblique views along with computer-aided detection (CAD). Synthesized 2D images are generated from the tomosynthesis. FINDINGS: There are scattered areas of fibroglandular density (ACR BI-RADS breast composition Category b). There are no significant masses, abnormal calcifications, or other abnormalities. MM/MM tomosynthesis screening BI IMPRESSION: No mammographic evidence of malignancy. ASSESSMENT: BI-RADS BI-RADS 1 - Negative RECOMMENDATION: Routine annual mammography screening. 1 year F/U This examination should not preclude the clinical evaluation of a suspicious palpable abnormality. This patient's information was entered into a reminder system with a target due date for their next mammogram.
== END 2023-12-02 08:24 | disposition home or self-care (01) ==
LOC: HO.MAMMO 08:23
PROVIDERS: PCP Student in an Organized Health Care Education/Training Program; Visit Provider Student in an Organized Health Care Education/Training Program
DX: Z12.31 Encounter for screening mammogram for malignant neoplasm of breast (principal)
CPT/HCPCS: 77063; 77067

== ENCOUNTER → 2023-12-02 08:30 | Outpatient (BNV) | payer BC, SELFPAY | PROVIDERS: PCP Student in an Organized Health Care Education/Training Program; Visit Provider Radiology Diagnostic Radiology | DX: Z12.31 Encounter for screening mammogram for malignant neoplasm of breast (principal) | CPT/HCPCS: 77063; 77067 ==

== ENCOUNTER 2023-12-08 09:45 | Outpatient (REF) | payer BC, SELFPAY ==
[2023-12-11 02:38] LABS: HPV mRNA E6/E7 rflx Not Detected (Not Detected)
== END 2023-12-08 09:46 | disposition home or self-care (01) ==
LOC: HO.LNP 09:45
PROVIDERS: Visit Provider Advanced Practice Midwife
DX: Z12.4 Encounter for screening for malignant neoplasm of cervix (principal); Z11.51 Encounter for screening for human papillomavirus (HPV)
CPT/HCPCS: 87624; 88142

== ENCOUNTER 2025-02-27 02:50 | Emergency (ER) | payer BC, SELFPAY ==
[2025-02-27] VITALS (7 sets, daily range): BP systolic 131–155; BP diastolic 70–92; PULSE 78–100; RESP 16–22; TEMP -17.7–37.1; O2SAT 92–96; BMI 20.7
--- NOTE | 2025-02-27 | ECG_ITS ---
Test Reason : CHEST PAIN Blood Pressure : */* mmHG Vent. Rate : 101 BPM Atrial Rate : 101 BPM P-R Int : 146 ms QRS Dur : 76 ms QT Int : 336 ms P-R-T Axes : 79 51 67 degrees QTcB Int : 435 ms Sinus tachycardia Nonspecific ST abnormality Borderline ECG When compared with ECG of 15-Nov-2022 05:28, No significant change was found Referred By: Generic ED Physician Electronically Signed By: KIRT BOOTHE
--- NOTE | ~2025-02-27 | XR_ITS ---
CLINICAL HISTORY: cp 1 view chest x-ray. Comparison: CR/SR - XR CHEST 1V - 11/15/22 09:47 EST Findings: Normal lung volumes. Lungs are clear. No pneumothorax or pleural effusion. Heart size normal. No passive venous congestion. No midline shift or tracheal deviation. No acute fracture. Impression: 1. No acute cardiopulmonary disease. This document has been electronically signed by: Sukh Mahoney MD on 02/27/2025 06:02:49
[2025-02-27 04:14] LABS: MANUAL DIFF FLAG NO
[2025-02-27 04:15] LABS: Basophils Absolute Auto 0.1 X10*3/uL (0.0-0.2); Basophils Percent Auto 1.1 % (0-2); Eosinophils Absolute Auto 0.6 X10*3/uL (0.0-0.4); Eosinophils Percent Auto 9.7 % (0-4); Hematocrit 35.8 % (37.0-47.0); Hemoglobin 11.4 g/dl (12.0-16.0); Imm Gran Abs Auto 0.01 X10*3/uL (0.00-0.03); Imm Gran Pct Auto 0.2 % (0.0-0.4); Lymphocytes Absolute Auto 1.3 X10*3/uL (1.2-4.9); Lymphocytes Percent Auto 22.7 % (20-40); Mean Corpuscular HGB Conc 31.8 g/dl (31.0-35.0); Mean Corpuscular Hemoglobin 31.4 pg (27.0-33.0); Mean Corpuscular Volume 98.6 fL (80.0-98.0); Monocytes Absolute Auto 0.4 X10*3/uL (0.1-1.2); Monocytes Percent Auto 6.3 % (2-11); Neutrophils Absolute Auto 3.4 x10*3/uL (2.0-8.3); Platelet Count 295 X10*3/uL (160-400); Red Blood Count 3.63 X10*6/uL (4.20-5.50); Red Cell Distribution Width 12.6 % (11.0-16.0); White Blood Count 5.7 X10*3/uL (4.8-10.8)
--- NOTE | 2025-02-27 04:22 | PC.NURSE ---
Pt resting on stretcher, denies any current pain. [place]bell in reach.
[2025-02-27 04:39] LABS: Troponin-I High Sensitivity 2.7 ng/L (<3.5-17.0)
[2025-02-27 04:44] LABS: Alanine Aminotransferase 55 U/L (0-31); Albumin Level 3.8 g/dL (3.5-5.0); Alkaline Phosphatase 63 U/L (39-117); Anion Gap 12 (12-20); Aspartate Amino Transferase 50 U/L (5-31); Bilirubin Total 0.3 mg/dL (0.0-1.0); Blood Urea Nitrogen 15 mg/dL (9-16); Calcium 9.6 mg/dL (8.4-10.2); Carbon Dioxide 25 mmol/L (22-29); Chloride 108 mmol/L (96-108); Creatinine Clr Calc Pharmacy 71.1; Estimated Glomerular Filt Rate > 60; Glucose Random 93 mg/dL (60-115); Magnesium 1.8 mg/dL (1.6-2.6); Potassium 3.9 mmol/L (3.3-5.1); Sodium 141 mmol/L (135-145)
--- NOTE | 2025-02-27 06:54 | ED.CHESTPAIN ---
HPI - Chest Pain General Chief Complaint: Chest Pain Stated Complaint: COPD/CP Time Seen by Provider: 02/27/25 06:54 History of Present Illness ED Provider: Roseline CHAVEZ narrative: The patient is a 64-year-old female with a history of COPD. She works for [employer]. She works an overnight shift at [employer] with her shift starting at 01:20 a.m.. She says that she went to work this morning and while at work she had an episode of chest pain on her left side which was associated with shortness of breath. Because of the symptoms she left work and came to the hospital. She has had no fever, sweats, chills. She is feeling somewhat better now. Pain was not necessarily pleuritic. She has had no pain or swelling in her calves. No fever, sweats, chills. No significant cough or sputum. Related Data Home Medications ?Medication ?Instructions ?Recorded ?Confirmed albuterol sulfate 90 mcg/actuation 2 puff inhalation Q6H PRN 11/15/22 06/03/23 aerosol inhaler (ProAir HFA) Shortness Of Breath Or Wheezing cholecalciferol (vitamin D3) 25 25 mcg PO DAILY 11/15/22 06/03/23 mcg (1,000 unit) tablet (Vitamin D3) fluticasone fur. 100 mcg-umeclid 1 inh inhalation DAILY 11/15/22 06/03/23 62.5 mcg-vilant 25 mcg inhalat.powder (Trelegy Ellipta) ibuprofen 200 mg tablet 400 mg PO Q8H PRN Pain 11/15/22 06/03/23 multivitamin 1 tab PO DAILY 11/15/22 06/03/23 Previous Rx's ?Medication ?Instructions ?Recorded docusate sodium 100 mg capsule 200 mg (2 x 100 mg) PO BID #90 caps 11/19/22 azithromycin 250 mg tablet See Rx Instructions PO .COMPLEX #6 06/03/23 tabs prednisone 20 mg tablet 60 mg (3 x 20 mg) PO DAILY #9 tabs 06/03/23 azithromycin 250 mg tablet 250 mg PO DAILY 4 days #4 tabs 02/27/25 prednisone 20 mg tablet 20 mg PO DAILY #12 tabs 02/27/25 Allergies Allergy/AdvReac Type Severity Reaction Status Date / Time oxycodone [From Percocet] Allergy Headache Verified 02/27/25 03:05 Penicillins Allergy Nausea and Verified 02/27/25 03:05 Vomiting Review of Systems Review of Systems: Yes all other systems are reviewed and are negative [facility] Social History Social History Household Members: Family Household Members Other:: mother and daughter Housing: House Do you presently have visiting nurse or other home services: No Patient Tobacco Use Status: Never used Tobacco service: No Physical Exam Vital Signs: Vital Signs: Last Vital Signs Temp 0 F L 02/27/25 09:18 Pulse 78 02/27/25 09:18 Resp 16 02/27/25 09:18 BP 131/70 02/27/25 09:18 Pulse Ox 94 02/27/25 09:18 O2 Del Method Room Air 02/27/25 09:18 BMI result Body Mass Index 20.7 Const: Other: The patient is a 64-year-old female who was awake and alert. She does not appear obviously in distress or in discomfort. HEENT: Other: Face is symmetrical, mucous membranes moist Eyes: General: appearance normal, both eyes and all related structures Neck: Neck: Yes normal visual inspection and Yes no JVD Resp: Other: No increased work of breathing. Slightly coarse and diminished air entry bilaterally. No mattie wheezes or crackles. Cardio: Rate: regular rate Rhythm: regular rhythm Heart sounds: S1 normal heart sound present and S2 normal heart sound present GI: Other: Abdomen is soft and nontender Skin: Other: Skin is dry and unremarkable Neuro: Other: The patient is awake and alert with a normal mental status and normal orientation. Cranial nerves are grossly intact. She moves her extremities normally and appropriately. Extrem: Other: No peripheral edema, no calf swelling or tenderness Medications Administered Discontinued Medications Generic Name Dose Route Start Last Admin Trade Name Freq PRN Reason Stop Dose Admin Albuterol/Ipratropium 3 ml 02/27/25 06:59 02/27/25 07:24 Albuterol/Iprat 2.5/0.5mg 3 Ml Ampul.Neb INHALE 02/27/25 07:00 3 ml ONCE ONE Administration Azithromycin 500 mg 02/27/25 08:52 02/27/25 09:13 Azithromycin 500 Mg Tablet PO 02/27/25 08:53 500 mg ONCE ONE Administration Prednisone 60 mg 02/27/25 08:52 02/27/25 09:13 Prednisone 20 Mg Tablet PO 02/27/25 08:53 60 mg ONCE ONE Administration Medical Decision Making Medical Decision Making [facility] Narrative: The patient is a 64-year-old female who was at work early this morning (she works an overnight shift at [employer]) when she had chest pain in the left chest and a sense of worsening shortness of breath. She has been having some mild problems with shortness of breath over the last month an intermittent chest pain. She is on regular medications for COPD. Today because of the symptoms while at work she left work and came to the emergency room for evaluation. Her workup in the emergency room is essentially negative. She has a clear chest x-ray, troponins are undetectable, her white count is normal, chest x-ray is normal, D-dimer is undetectable. The patient was given a DuoNeb updraft in the emergency department. Perhaps she is having some degree of a COPD exacerbation. She will be placed on a course of prednisone and azithromycin. She should follow up with her PCP or return to the ER if worse. She is given a work note. Lab Data 02/27/25 04:08 02/27/25 04:08 Labs: Lab Results 02/27/25 02/27/25 Range/Units 04:08 07:44 WBC 5.7 (4.8-10.8) X10*3/uL RBC 3.63 L (4.20-5.50) X10*6/uL Hgb 11.4 L (12.0-16.0) g/dl Hct 35.8 L (37.0-47.0) % MCV 98.6 H (80.0-98.0) fL MCH 31.4 (27.0-33.0) pg MCHC 31.8 (31.0-35.0) g/dl RDW 12.6 (11.0-16.0) % Plt Count 295 D (160-400) X10*3/uL MPV 9.0 L (9.4-12.3) fL Immature Gran % (Auto) 0.2 (0.0-0.4) % Neut % (Auto) 60.0 (45-73) % Lymph % (Auto) 22.7 (20-40) % Craven % (Auto) 6.3 (2-11) % Eos % (Auto) 9.7 H (0-4) % Baso % (Auto) 1.1 (0-2) % Lymph # (Auto) 1.3 (1.2-4.9) X10*3/uL Craven # (Auto) 0.4 (0.1-1.2) X10*3/uL Eos # (Auto) 0.6 H (0.0-0.4) X10*3/uL Baso # (Auto) 0.1 (0.0-0.2) X10*3/uL Abs Immat Gran (auto) 0.01 (0.00-0.03) X10*3/uL Absolute Neuts (auto) 3.4 (2.0-8.3) x10*3/uL Absolute Nucleated RBC 0.000 (0.0-0.012) X10*3/uL Nucleated RBC % (auto) 0.0 (0.0-0.2) /100WBC D-Dimer High Sensitivty < 150 NG/ML Sodium 141 (135-145) mmol/L Potassium 3.9 (3.3-5.1) mmol/L Chloride 108 (96-108) mmol/L Carbon Dioxide 25 (22-29) mmol/L Anion Gap 12 (12-20) BUN 15 (9-16) mg/dL Creatinine 0.64 (0.5-1.4) mg/dL Estim Creat Clear Calc 71.1 Estimated GFR > 60 Random Glucose 93 (60-115) mg/dL Calcium 9.6 D (8.4-10.2) mg/dL Magnesium 1.8 (1.6-2.6) mg/dL Total Bilirubin 0.3 (0.0-1.0) mg/dL AST 50 H (5-31) U/L ALT 55 H (0-31) U/L Alkaline Phosphatase 63 (39-117) U/L Troponin I High Sens 2.7 < 2.7 (<3.5-17.0) ng/L Total Protein 6.0 L (6.5-8.0) g/dL Albumin 3.8 (3.5-5.0) g/dL Discharge Plan Discharge Clinical Impression: Acute exacerbation of chronic obstructive pulmonary disease Patient Disposition: Home, Self-Care Instructions: COPD (Chronic Obstructive Pulmonary Disease) (ED) Additional Instructions: Your testing today shows that your chest pain was not likely indicating any warning of a heart attack. Additionally your testing shows that you do not have a blood clot in your lungs. Your chest x-ray looks good. Your other blood tests also looked good. I think he might be having some degree of an exacerbation of your COPD. You has been prescribed a course of prednisone, a steroid medication, and also a course of azithromycin, an antibiotic. Please take each of these medications once a day as prescribed. Next doses tomorrow. Please follow up with your regular doctor's office for a recheck soon. Return to the emergency room if you feel significantly worse. Prescriptions: New azithromycin 250 mg tablet 250 mg PO DAILY 4 Days Qty: 4 0RF Rx Instructions: start on day 2 of therapy prednisone 20 mg tablet 20 mg PO DAILY Qty: 12 0RF Rx Instructions: Take 3 tablets by mouth daily for 2 days then take 2 tablets by mouth daily for 3 days. No Action multivitamin Tablet 1 tab PO DAILY ibuprofen 200 mg Tablet 400 mg PO Q8H PRN (Reason: Pain) albuterol sulfate [ProAir HFA] 90 mcg/actuation Hfa Aerosol Inhaler 2 puff INHALATION Q6H PRN (Reason: Shortness Of Breath Or Wheezing) cholecalciferol (vitamin D3) [Vitamin D3] 25 mcg (1,000 unit) Tablet 25 mcg PO DAILY Trelegy Ellipta 100-62.5-25 mcg Blister With Device 1 inh INHALATION DAILY docusate sodium 100 mg Capsule 200 mg PO BID Qty: 90 0RF prednisone 20 mg tablet 60 mg PO DAILY Qty: 9 0RF azithromycin 250 mg tablet See Rx Instructions PO .COMPLEX Qty: 6 0RF Rx Instructions: take 500 mg today (day 1), then 250 mg for 4 days (days 2-5) PO Referrals: Clarita Fountain MD [Primary Care Provider] - (COPD, chest pain) Stand Alone Forms: Work/School Release Interventions: ED Discharge Assessment Last Done: 02/27/25 09:18 Discharge Date/Time: 02/27/25 09:20 Print Language: Palestinian
[2025-02-27] MEDS: Albuterol/Iprat 2.5/0.5MG 3 ML AMPUL.NEB INHALE (07:24)
[2025-02-27 07:59] LABS: D Dimer High Sensitivity < 150 NG/ML
--- NOTE | 2025-02-27 08:10 | PC.NURSE ---
pt is alert and oriented, skin pwd, respirations even and unlabored,ls clear pt oxygen level varies while resting in the stretcher anywhere from 89-96% on room air. pt reports intermitted chest pain on the left sided for about one month currently denies chest pain, does reports feeling sob with these episodes, ns on the monitor
[2025-02-27 08:28] LABS: Troponin-I High Sensitivity < 2.7 ng/L (<3.5-17.0)
[2025-02-27] MEDS: Azithromycin 500 MG TABLET PO (09:13)
[2025-02-27] MEDS: predniSONE 20 MG TABLET 60 MG PO (09:13)
== END 2025-02-27 09:20 | disposition home or self-care (01) ==
PROVIDERS: Emergency Provider Emergency Medicine; PCP Student in an Organized Health Care Education/Training Program
DX: J44.1 Chronic obstructive pulmonary disease with (acute) exacerbation (principal); R07.89 Other chest pain; R00.0 Tachycardia, unspecified; Z79.899 Other long term (current) drug therapy
CPT/HCPCS: 36415; 71045; 80053; 83735; 84484; 85025; 85379; 93005; 94640; 99283; 99285

== ENCOUNTER → 2025-02-27 02:55 | Outpatient (BNV) | payer BC, SELFPAY | PROVIDERS: Emergency Provider Emergency Medicine; PCP Student in an Organized Health Care Education/Training Program; Visit Provider Internal Medicine | DX: R07.9 Chest pain, unspecified (principal) | CPT/HCPCS: 93010 ==

== ENCOUNTER → 2025-02-27 04:25 | Outpatient (BNV) | payer BC, SELFPAY | PROVIDERS: Emergency Provider Emergency Medicine; PCP Student in an Organized Health Care Education/Training Program; Visit Provider Radiology Diagnostic Radiology | DX: R07.9 Chest pain, unspecified (principal) | CPT/HCPCS: 71045 ==

== ENCOUNTER 2025-03-10 14:02 | Outpatient (REF) | payer BC, SELFPAY ==
--- OUTSIDE RECORDS SUMMARY | 2025-03-10 14:45 | XMS_ITS | Encounter Summary ---
Author Organization [employer] Address [address] [place] [address] Care Team Providers Care Senior Officer Name Role Phone Clarita Fountain MD Primary Care Pro vider Reason for Visit * Reason Comments Med Refill Encounter Details Date Type Department Care Team (Late st Contact Info) Description 09/07/2024 Refill [facility] MEDICINE [address], [place] [phone] Clarita Fountain MD [address] [place], [place] [phone] Social History Tobacco Use Types Packs/Day Years Used Date Smoking Tobacco: Former Passive Smoke Exposure: Past Smokeless Tobacco: Never Comments:Started smoking 24 to 54 y if age---smoked for 30 years -stopped 9 y ago, used to smoke 30 cig a day --PQT calc 45 PQT a day Alcohol Use Standard Drinks/Week Comments Not Currently 0 (1 standard drink = 0.6 oz pur e alcohol) social Housing Stability Answer Date Recorded What is your housing situation today? I have [employer] 11/05/[address] you li ve. Do you have problems with any of the following? None of the above 11/05/2023 Food Insecurity Answer Date Recorded Within the past 12 months, y ou worried that your food would run out before you got money to buy more: Never True 11/05/2023 Within the past 12 months,th e food you bought just didn't last and you didn't have enough money to get more: Never True 07/2024 Transportation Answer Date Recorded In the past 12 months, has l ack of transportation kept you from medical appts, meetings, work or from getting things needed for daily living? No 11/05/2023 Utilities Answer Date Recorded In the past 12 months, has t he [employer], gas, oil or water [employer] threatened to shut off services in your home? No 11/05/2023 Comments No Sex and Gender Information Value Date Recorded Sex Assigned at Female 09/24/2023 11:15 AM EST Legal Sex Female 11:14 AM EST Gender Identity Female 09/24/2023 11:21 AM EST Sexual Orientation Bisexual 09/24/2023 11 :21 AM EST documented as of this encounter Plan of Treatment Upcoming Encounters Date Type Department Care Team (Late st Contact Info) Description 04/08/2025 9:30 AM EDT Office Visit [facility] MEDICINE [address] [place] [phone] Clarita Fountain MD [address] [place] [address] [phone] documented as of this encounter Visit Diagnoses Not on filedocumented in this encounter Care Teams Senior Officer Relationship Specialty Start Date End Date Clarita Fountain MD [address] [place] [address] [phone] PCP - General Internal Medicine 11/13/23 documented as of this encounter
--- OUTSIDE RECORDS SUMMARY | 2025-03-10 14:45 | XMS_ITS | Clinical Summary ---
Author Organization [employer] Address [address] [facility] [address] [place] [address] Care Team Providers Care Food Safety Officer Name Role Phone Clarita Fountain MD Primary Care Pro vider Allergies No known active allergies Medications ibuprofen 200 MG tablet Take by mouth. Activ e Multiple Vitamin (multivitamin) tablet Take 1 tablet by mouth in the morning. Active Trelegy Ellipta 100-62.5-25 MCG/ACT aerosol powder Take 1 puff by mouth Once daily. 3 each 3 4 Active Blood Pressure kit 1 Device Once per day. 1 kit 4 Active Diclofenac Sodium 1 % gel APPLY 1 APPLICATION TOPICALLY IF NEEDED EACH DAY (HAND PAIN). 100 g 1 5 Active albuterol 108 (90 Base) MCG/ACT inhaler TAKE 2 PUFFS (INHALATION) EVERY 6 HOURS (SHORTNESS OF BREATH OR WHEEZING) FOR 10 DAYS 18 g 1 5 Active ipratropium-alb uterol (Duo-Neb) 0.5-2.5 mg/3 mL nebulizer solution TAKE 3 ML BY NEBULIZATION ROUTE EVERY 6 HOURS 180 mL 2 5 Active amLODIPine (Norvasc) 2.5 MG tabletIndicatio ns:Annual physical exam Take 2 tablets (5 mg) by mouth Once per day. 90 tablet 5 02/12/20 26 Active Active Problems Problem Noted Date Diagnosed Date Hypertension 02/11/2025 Other constipation 02/11/2025 Abnormal EKG 02/11/2025 Hearing loss 02/11/2025 Depression 02/11/2025 Weight loss 02/11/2025 Generalized osteoarthritis of hand 11/15/2023 History of tobacco use 11/15/2023 COPD exacerbation 11/15/2023 Health care maintenance 11/15/2023 Encounters Date Type Department Care Team Description 02/27/2025 Orders Only GENERIC EXTERNAL DATA DEPARTMENT Provider, Generic External Data 02/11/2025 9:30 AM EDT Office Visit [facility] [address] [place] [phone] Clarita Fountain MD Health care maintenance (Primary Dx); COPD exacerbation ([facility]); History of tobacco use; Cigarette nicotine dependence without complication; Colon cancer screening; Irritable bowel syndrome with constipation; Annual physical exam; Breast cancer screening by mammogram; Primary hypertension; Encounter for immunization; Abnormal EKG; Other constipation; Hearing loss, unspecified hearing loss type, unspecified laterality; Recurrent major depressive disorder, remission status unspecified ([facility]); Weight loss 02/11/2025 Travel 02/07/[address] [phone] Clarita Fountain MD chart prep 01/04/[address] [phone] Clarita Fountain MD Referral ( ) 12/14/2024 Refill [facility] [address] [place] [phone] Clarita Fountain MD from Last 3 Months Immunizations Immunization Administration Dates Next Due Influenza, IIV3, injectable 07/15/2008 Pneumococcal Conjugate PCV 20 02/11/2025 Tdap 04/22/2023,05/25/2008 Family History Medical History Relation Name Comments Lung cancer Maternal Grandfather HTN Mother Lupus Mother Relation Name Status Comments Maternal Grandfather Mother Social History Tobacco Use Types Packs/Day Years Used Date Smoking Tobacco: Former Passive Smoke Exposure: Past Smokeless Tobacco: Never Comments:Started smoking 24 to 54 y if age---smoked for 30 years -stopped 10 y ago, used to smoke 30 cig a day --PQT calc 45 PQT a day Alcohol Use Standard Drinks/Week Comments Not Currently 0 (1 standard drink = 0.6 oz pur e alcohol) social Depression Answer Date Recorded Patient Health Questionnaire-9 Score 3 02/11/2025 Patient Health Questionnaire-9 Score 3 02/11/2025 Last PHQ-9: Questionnaire Data Not on file 0 02/11/2025 Housing Stability Answer Date Recorded What is your housing situation today? I have belem sing 02/11/[address] you li ve. Do you have problems with any of the following? None of the above 02/11/2025 Food Insecurity Answer Date Recorded Within the past 12 months, y ou worried that your food would run out before you got money to buy more: Never True 02/11/2025 Within the past 12 months,th e food you bought just didn't last and you didn't have enough money to get more: Never True Transportation Answer Date Recorded In the past 12 months, has l ack of transportation kept you from medical appts, meetings, work or from getting things needed for daily living? No 02/11/2025 Utilities Answer Date Recorded In the past 12 months, has t he electric, gas, oil or water company threatened to shut off services in your home? No 02/11/2025 Depression Answer Date Recorded Patient Health Questionnaire-2 Score 0 02/11/2025 Internet Access Answer Date Recorded Internet Access Q1 No 02/11/2025 Internet Access Q2 I do not want or need it 01/25 Comments No Sex and Gender Information Value Date Recorded Sex Assigned at Female 09/24/2023 11:15 AM EST Legal Sex Female 11:14 AM EST Gender Identity Female 09/24/2023 11:21 AM EST Sexual Orientation Bisexual 09/24/2023 11 :21 AM EST Last Filed Vital Signs Vital Sign Reading Time Taken Comments Blood Pressure 160/80 02/11/2025 9:43 AM EDT Pulse 99 02/11/2025 9:43 AM EDT Temperature 36.7 ??C (98 ??F) 02/11/2025 9:43 AM EDT Respiratory Rate 20 02/11/2025 9:43 AM EDT Oxygen Saturation 95% 02/11/2025 9:43 AM EDT Inhaled Oxygen Concentration - - Weight 50.5 kg (111 lb 6.4 oz) 02/11/2025 9:43 A M EDT Height 156 cm (5' 1.42 ) 02/11/2025 9:43 AM EDT Body Mass Index 20.76 02/11/2025 9:43 AM EDT Plan of Treatment Upcoming Encounters Date Type Department Care Team (Late st Contact Info) Description 04/08/2025 9:30 AM EDT Office Visit [facility] [address] [place] [address] Clarita Fountain MD [address], [place] [phone] Health Maintenance Due Date Last Done Comments CT Colonography 1960 Colonoscopy 1960 Colorectal Cancer Screening 1960 FIT DNA/Cologuard 1960 FIT 1960 FOBT 1960 HIV Screening 1960 Lipid Panel 1960 Sigmoidoscopy 1960 Hepatitis C Screening 1979 Zoster Vaccines (1 of 2) 2011 RSV Patients and Patients Aged 60 years or older (1 - Risk 60-74 years 1-dose series) 2021 COVID-19 Vaccine ( - 2023-2 5 season) 2024 Influenza Vaccine (#1) 2024 07/15/2008 Mammogram 12/02/2025 12/02/2023 Alcohol/Substance Use Screening 02/11/2026 02/11/2025 Depression Screening 02/11/2026 02/11/2025, 02/11/2025 SDOH Screening 02/11/2026 02/11/2025 Tobacco Screening 02/11/2026 02/11/2025 Pap Smear 12/08/2026 12/08/2023 Cervical Cancer Screening 12/08/2028 HPV/Cotest 12/08/2028 12/08/2023 DTaP/Tdap/Td Vaccines (3 - T d or Tdap) 04/22/2033 04/22/2023, 05/25/2008 Pneumococcal Vaccine: 50+ Years Completed 02/11/2025 HIB Vaccines Aged Out No longer eligi ble based on patient's age to complete this topic HPV Vaccines Aged Out No longer eligi ble based on patient's age to complete this topic Hepatitis A Vaccines Aged Out No long er eligible based on patient's age to complete this topic Hepatitis B Vaccines Aged Out No long er eligible based on patient's age to complete this topic IPV Vaccines Aged Out No longer eligi ble based on patient's age to complete this topic Meningococcal B Vaccine Aged Out No l onger eligible based on patient's age to complete this topic Meningococcal Vaccine Aged Out No aime ivette eligible based on patient's age to complete this topic RSV under 20 months Aged Out No longe r eligible based on patient's age to complete this topic Rotavirus Vaccines Aged Out No longer eligible based on patient's age to complete this topic Procedures Procedure Name Priority Date/Time Associated Diagnosis Comments AMB REFERRAL TO OPHTHALMOLOGY Routine 03/03/2025 Primary hypertension HIGH SENSITIVITY TROPONIN I Routine 02/27/2025 7:44 AM EDT D DIMER HIGH SENSITIVITY Routine 02/27/2025 7:44 AM EDT XR CHEST 1 VIEW Routine 02/27/2025 6:02 AM EDT MAGNESIUM Routine 02/27/2025 4:08 AM EDT COMPREHENSIVE METABOLIC PANEL Routine 02/27/2025 4:08 AM EDT HIGH SENSITIVITY TROPONIN I Routine 02/27/2025 4:08 AM EDT CBC WITH AUTO DIFFERENTIAL Routine 02/27/2025 4:08 AM EDT ECG 12-LEAD Routine 02/11/2025 11:11 AM EDT Primary hypertension HPV MRNA E6/E7 REFLEX TO HPV 16, 18/45 Routine 12/08/2023 9:45 AM EST PAP SMEAR Routine 12/08/2023 9:45 AM EST Cervical cancer screening BI MAMMOGRAM SCREENING TOMOSYNTHESIS BILATERAL Routine 12/02/2023 8:50 AM EST Encounter for screening mammogram for malignant neoplasm of breast from Last 3 Months or Most Recently Relevant to Health Maintenance Results * Referral to Ophthalmology (03/03/2025) Clarita Magana MD OUTPATIENT REFERR AL ORDERABLES Final Result * D Dimer High Sensitivity (02/27/2025 7:44 AM EDT) Pathologist [facility] D Dimer High Sensitivity <150 NG/ML [facility] Comment:D-DIMER HS REFERENCE RANGENote: Our assay reports D-Dimer Units (D- DU).The cut-off value for venous thromboembolic (VTE) disease is230 ng/mL. This value has a very high negative predictivevalue when the patient has a low to moderate clinicalprobability of VTE.The upper limit of normal is 243 ng/mL. 02/27/2025 7:44 AM EDT 02/27/2025 7:47 AM EDT Generic External Data Provider LAB BLOOD ORDERAB LES Final Result Performing Organization Address [facility] Co de Phone Number [facility] [address] [place] [phone] * High Sensitivity Troponin I (02/27/2025 7:44 AM EDT) Only the most recent of2 resultswithin the time period is included. Pathologist [facility] TROPONIN I HIGH SENSITIVITY <2.7 <3.5 - 17.0 ng/L [facility] Comment:The Thakur high sens itivity Troponin-I results should beused in conjunction with other diagnostic information suchas ECG, clinical observations and information, and patientsymptoms to aid in the diagnosis of AK. 02/27/2025 7:44 AM EDT 02/27/2025 7:47 AM EDT us Generic External Data Provider LAB BLOOD ORDERAB LES Final Result Performing Organization Address [facility]/ZIP Co de Phone Number [facility] [address] [place] [phone] * XR Chest 1 View (02/27/2025 6:02 AM EDT) Anatomical Region Laterality Modality Chest Radiographic Blanca ging 02/27/2025 6:02 AM EDT Narrative 02/27/2025 6:04 AM EDT ? [facility] ?[address] ?[place] [address] ?XRay Report ? Signed ? Patient: Zajchowski,Anya M ?MR#: [id number] ?? [id number] ? : 1960 ?Acct:[id number] ? Age/Sex: 64 / F ?ADM Date: 02/27/25 ? Loc: HO.ED ? Attending Dr: ? Ordering Physician: Generic ED Physician ?? Date of Service: 02/27/25 ?? Procedure(s): XR chest 1V ?? Accession Number(s): [id number] ? cc: Generic ED Physician; Clarita Fountain MD ? CLINICAL HISTORY: cp ? 1 view chest x-ray. ? Comparison: CR/SR - XR CHEST 1V - 11/15/22 09:47 EST ? Findings: ?? Normal lung volumes. ?? Lungs are clear. ?? No pneumothorax or pleural effusion. ?? Heart size normal. No passive venous congestion. ?? No midline shift or tracheal deviation. ?? No acute fracture. ? Impression: ?? 1. No acute cardiopulmonary disease. ? This document has been electronically signed by: Sukh Mahoney MD on ?? 02/27/2025 06:02:49 ? Dictated By: ?Sukh Mahoney MD ? Signed By: ?<Electronically signed by Sukh Vrdoljak, MD in OV> ?02/27/25 0603 ? DD/ 1 ? TD/TT: 02/27/25601 ? Volumetric Weigher: ? Procedure Note Abbie Gordon - 02/27/[address] [address] XRay Report Signed Patient: Anya Eden MMR#: [id number] : 1960cct:[id number] Age/Sex: 64 / FADM Date: 02/27/25 Loc: HO.ED Attending Dr: Ordering Physician: Generic ED Physician Date of Service: 02/27/25 Procedure(s): XR chest 1V Accession Number(s): [id number] cc: Generic ED Physician; Clarita Fountain MD CLINICAL HISTORY: cp 1 view chest x-ray. Comparison: CR/SR - XR CHEST 1V - 11/15/22 09:47 EST Findings: Normal lung volumes. Lungs are clear. No pneumothorax or pleural effusion. Heart size normal. No passive venous congestion. No midline shift or tracheal deviation. No acute fracture. Impression: 1. No acute cardiopulmonary disease. This document has been electronically signed by: Sukh Mahoney MD on 02/27/2025 06:02:49 Dictated By: Sukh Mahoney MD Signed By: <Electronically signed by Sukh Mahoney MD in OV> 02/27/25602 DD/ 1 TD/TT: 02/27/25601 Volumetric Weigher: [facility] External Provider IMG XR PROCEDURES Final Result * (ABNORMAL) CBC auto differential (02/27/2025 4:08 AM EDT) White Blood Count 5.7 4.8 - 10.8 X10*3/uL [facility] Red Blood Count 3.63(L) 4.20 - 5.50 X10*6/uL [facility] Hemoglobin 11.4(L) 12.0 - 16.0 g/dl [facility] Hematocrit 35.8(L) 37.0 - 47.0 % [facility] Mean Corpuscular Volume 98.6(H) 80.0 - 98.0 fL [facility] Mean Corpuscular Hemoglobin 31.4 27.0 - 33.0 pg [facility] Mean Corpuscular HGB Conc 31.8 31.0 - 35.0 g/dl [facility] Red Cell Distribution Width 12.6 11.0 - 16.0 % [facility] Platelet Count 295 160 - 400 X10*3/uL [facility] Mean Platelet Volume 9.0(L) 9.4 - 12.3 fL [facility] Neutrophils Percent Auto 60.0 45 - 73 % [facility] Imm Gran Pct Auto 0.2 0.0 - 0.4 % [facility] Lymphocytes Percent Auto 22.7 20 - 40 % [facility] Monocytes Percent Auto 6.3 2 - 11 % [facility] Eosinophils Percent Auto 9.7(H) 0 - 4 % [facility] Basophils Percent Auto 1.1 0 - 2 % [facility] NRBC Pct Auto 0.0 0.0 - 0.2 /100WBC [facility] Neutrophils Absolute Auto 3.4 2.0 - 8.3 x10*3/uL [facility] Imm Gran Abs Auto 0.01 0.00 - 0.03 X10*3/uL [facility] Lymphocytes Absolute Auto 1.3 1.2 - 4.9 X10*3/uL [facility] Monocytes Absolute Auto 0.4 0.1 - 1.2 X10*3/uL [facility] Eosinophils Absolute Auto 0.6(H) 0.0 - 0.4 X10*3/uL [facility] Basophils Absolute Auto 0.1 0.0 - 0.2 X10*3/uL [facility] NRBC Abs Auto 0.000 0.0 - 0.012 X10*3/uL [facility] 02/27/2025 4:08 AM EDT 02/27/2025 4:12 AM EDT us Generic External Data Provider LAB BLOOD ORDERAB LES Final Result Performing Organization Address [facility]/ZIP Co de Phone Number [facility] [address] [place] [phone] * Magnesium (02/27/2025 4:08 AM EDT) Magnesium 1.8 1.6 - 2.6 mg/dL [facility] 02/27/2025 4:08 AM EDT 02/27/2025 4:12 AM EDT us Generic External Data Provider LAB BLOOD ORDERAB LES Final Result Performing Organization Address City/[facility]/ZIP Co de Phone Number [facility] [address] [place] [phone] * (ABNORMAL) Comprehensive Metabolic Panel (02/27/2025 4:08 AM EDT) Sodium 141 135 - 145 mmol/L [facility] Potassium 3.9 3.3 - 5.1 mmol/L [facility] Chloride 108 96 - 108 mmol/L [facility] Carbon Dioxide 25 22 - 29 mmol/L [facility] Anion Gap 12 12 - 20 [facility] Urea Nitrogen (BUN) 15 9 - 16 mg/dL [facility] Creatinine, Serum 0.64 0.5 - 1.4 mg/dL [facility] Creatinine Clr Calc Pharmacy 71.1 [facility] Comment:Provided height and weight: 157.48 cm,51.3 kg.eGFR (calculated from the MDRD study equation) and eCrCl(calculated from the Cockcroft-Gault equation) are based ondifferent parameters and may not yield comparable results.If eCrCl result is absurd, please check patient'sheight/weight. Estimated Glomerular Filt Rate >60 [facility] Comment:Chronic Kidney Disea se: Estimated GFR < 60 mL/min/1.24i1Oiuooi Kidney Disease: Estimated GFR < 15 mL/min/1.73m2 Glucose 93 60 - 115 mg/dL [facility] Calcium 9.6 8.4 - 10.2 mg/dL [facility] Bilirubin, Total 0.3 0.0 - 1.0 mg/dL [facility] Aspartate Amino Transferase 50(H) 5 - 31 U/L [facility] Alanine Aminotransferase 55(H) 0 - 31 U/L [facility] Total Protein 6.0(L) 6.5 - 8.0 g/dL [facility] Albumin Level 3.8 3.5 - 5.0 g/dL [facility] Alkaline Phosphatase 63 39 - 117 U/L [facility] 02/27/2025 4:08 AM EDT 02/27/2025 4:12 AM EDT us Generic External Data Provider LAB BLOOD ORDERAB LES Final Result Performing Organization Address [facility]/ZIP Co de Phone Number [facility] [address] [place] [address] [phone] * ECG 12 lead (02/11/2025 11:11 AM EDT) Narrative Clarita Fountain MD - 02/11/2025 11:11 AM EDT -EKG today 01/2025 for baseline: ??HR 87, NSR, QTC 397, ??TWI in lead V2 and flat Tw in V3 , #1 PVC Clarita Magana MD ECG ORDERABLES F inal Result * HPV mRNA E6/E7 w/Reflex to HPV Genotypes 16, 18/45 (12/08/2023 9:45 AM EST) HPV nRNA E6/E7 Not Detected Not Detected [facility] Comment:Methodology: Transcr iption-Mediated AmplificationThis assay detects E6/E7 viral messenger RNA (mRNA) from 14high-risk HPV types (16,18,31,33,35,39,45,51,52,56,58,59,66,68).Cervical sources are required for HPV testing.If a vaginal source from a patient who has had atotal hysterectomy with removal of cervix wassubmitted, please contact the testing laboratoryfor alternative testing options.For additional information, please refer tohttp://education.[employer] [employer] [facility]/faq/TBG757g2(This link if provided for information/educational purposes only.)THIS TEST WAS PERFORMED AT:[employer] [place] [phone] SUTTON MD HPV mRNA E6/E7 [facility] HPV 16 RNA [facility] HPV 18/45 RNA [facility] 12/08/2023 9:45 AM EST 12/09/2023 8:00 AM EST us Alie VYAS LAB CYTOLOGY ORDERABLES F inal Result Performing Organization Address City/[facility]/ZIP Co de Phone Number [facility] [address] [place] [address] [phone] * Pap Smear (12/08/2023 9:45 AM EST) Swab Cervix uteri structure / Unknown 12/08/2023 9:45 AM EST 12/09/2023 8:00 AM EST Narrative [facility] - 12/23/2023 1:21 PM EST ----- ------- Name: Anya Eden ? Age/Sex: 63/F ? : 1960 Unit#: [id number] ?? Attend Dr: ALIE SALINAS CNM ?Re12/08/23 ?Status: DEP REF ? Location: HO.LNP ?Disch: ? ----- ------- SPEC : [id number] ? RECD: 12/09/23-799 ? STATUS: ??SOUT ? REQ NUM: [id number] ? ZACHERY: 12/08/23 ? SUBM DR: ALIE SALINAS CNM ? ENTERED: ??12/09/23 ?SP TYPE: Pap Smr ?OTHR : ? ORDERED: ??Pap Smear ? Interpretation ?? Satisfactory for evaluation. ?? Atrophic. ?? Negative for intraepithelial lesion or malignancy. ?HPV mRNA E6/E7: ?NOT DETECTED ? This assay detects E6/E7 viral messenger RNA (mRNA) from 14 high-risk HPV types (16, 18, ?? 31, 33, 35, 39, 45, 51, 52, 56, 58, 59, 66, 68) ?? HPV testing performed by [facility], [place], [place]. ??See reference laboratory ?? portion of the EMR for entire report. ?Clinical Information LMP: Postmenopausal Previous PAP test: Unknown date/findings ? Material Received ?? ThinPrep-Cervical ----- ------- Signed (signature on file) KYUNG Mooney (ASCP) 12/23/23 1321 ? ----- ------- ? END OF REPORT ? us Alie Salinas CN LAB CYTOLOGY ORDERABLES F inal Result [facility] [address] [place] [address] [phone] * BI Mammogram Screening Tomosynthesis Bilateral (12/02/2023 8:50 AM EST) Anatomical Region Laterality Modality Breast Bilateral Mammography 12/02/2023 8:50 AM EST Narrative 12/27/2023 4:30 PM EST ? [facility] ? [address] [facility] ?[place] [address] ? Mammography Report ? Signed ? Patient: Zajchowski,Anya M ?MR#: [id number] ?? [id number] ? : 1960 ?Acct:[id number] ? Age/Sex: 63 / F ?ADM Date: 12/02/24 ? Loc: HO.MAMMO ? Attending Dr: Clarita Magana MD ? Ordering Physician: Clarita Fountain MD ?Re ?? sults: 1Negative ? Date of Service: 12/02/23 ?Follow Up: 1 Year From Orig ?? inal Mammogram ? Procedure(s): MM tomosynthesis screening BI ?? Accession Number(s): [id number] ? cc: Clarita Fountain MD ? EXAMINATION: ?? MM SCREENING DIGITAL BREAST TOMOSYNTHESIS, BILATERAL ? CLINICAL INFORMATION: ? Screening. Asymptomatic. ? COMPARISON: ?? Mammography: There are no prior mammograms for comparison. ? TECHNIQUE: ?? Digital breast tomosynthesis is performed in both the craniocaudal and ?? mediolateral oblique views along with computer-aided detection (CAD). ?? Synthesized 2D images are generated from the tomosynthesis. ? FINDINGS: ?? There are scattered areas of fibroglandular density (ACR BI-RADS breast ?? composition Category b). ? There are no significant masses, abnormal calcifications, or other ?? abnormalities. ? MM/MM tomosynthesis screening BI ?? IMPRESSION: ?? No mammographic evidence of malignancy. ? ASSESSMENT: ? BI-RADS BI-RADS 1 - Negative ? RECOMMENDATION: ?? Routine annual mammography screening. ? 1 year F/U ? This examination should not preclude the clinical evaluation of a ?? suspicious palpable abnormality. ? This patient's information was entered into a reminder system with a ?? target due date for their next mammogram. ? Dictated By: ?Ashley Park MD ? Signed By: ?<Electronically signed by Ashley Park MD in OV> ? 12/27/231625 ? DD/ 0850 ? TD/TT: ? Volumetric Weigher: ? Procedure Note Evan, Image - 12/27/2023 [facility] [address] [place], [place] [address] Mammography Report Signed Patient: Anya Eden MMR#: [id number] : 1Acct:[id number] Age/Sex: 63 / FADM Date: 12/02/23 Loc: HO.MAMMO Attending Dr: Clarita Magana MD Ordering Physician: Clarita Fountain sults: 1Negative Date of Service: 12/02/23Follow Up: 1 Year From Orig ina Mammogram Procedure(s): MM tomosynthesis screening BI Accession Number(s): [id number] cc: Clarita Fountain MD EXAMINATION: MM SCREENING DIGITAL BREAST TOMOSYNTHESIS, BILATERAL CLINICAL INFORMATION: Screening. Asymptomatic. COMPARISON: Mammography: There are no prior mammograms for comparison. TECHNIQUE: Digital breast tomosynthesis is performed in both the craniocaudal and mediolateral oblique views along with computer-aided detection (CAD). Synthesized 2D images are generated from the tomosynthesis. FINDINGS: There are scattered areas of fibroglandular density (ACR BI-RADS breast composition Category b). There are no significant masses, abnormal calcifications, or other abnormalities. MM/MM tomosynthesis screening BI IMPRESSION: No mammographic evidence of malignancy. ASSESSMENT: BI-RADS BI-RADS 1 - Negative RECOMMENDATION: Routine annual mammography screening. 1 year F/U This examination should not preclude the clinical evaluation of a suspicious palpable abnormality. This patient's information was entered into a reminder system with a target due date for their next mammogram. Dictated By: Ashley Park MD Signed By: <Electronically signed by Ashley Park MD in OV> 12/27/23 1626 DD/ 0850 TD/TT: Volumetric Weigher: Clarita Magana MD IMG BI PROCEDURES Edited Result - Final from Last 3 Months or Most Recently Relevant to Health Maintenance Insurance BS PPO Care Teams Food Safety Officer Relationship Specialty Start Date End Date Clarita Fountain MD [address] [place] [phone] PCP - General Internal Medicine 11/13/23
--- OUTSIDE RECORDS SUMMARY | 2025-03-10 14:45 | XMS_ITS | Patient Health Record ---
Author Organization [facility] kendall [place] Address [address] [place] [address] Care Team Providers Care Single Ending Machine Operator Name Role Phone Levi Peterson Unavailable [phone] Allergies Allergen (clinical drug ingredient) Drug/Non Drug Allergy documented on EMR Reaction Allergy Type Onset Date Status Adhesive hives Allergy Active Latex Latex hives Allergy Active morphine Morphine per pt no allergy any longer Drug Allergy Active Penicillin upset stomach, nausea Drug Allergy Active Reason For Referral No Information Medications Medication SIG (Take, Route, Frequency, Duration) Notes Start Date End Date Status Trelegy Ellipta 100-62.5-25 MCG/ACT 1 puff Inhalation Once a day Active ProAir HFA Active Social History Tobacco Use: Social History Observation Description Date Details (start date - stop date) Former Smoker NA - NA Tobacco Use/Smoking Question Answer Notes Are you a: former smoker Alcohol Screen Question Answer Notes Did you have a drink contain ing alcohol in the past year? Yes How often did you have a dri nk containing alcohol in the past year? Monthly or less (1 point) Points 1 Interpretation Negative Tobacco use other than smoking: Question Answer Notes Are you an other tobacco user? No Plan Of Treatment Pending Test Test Name Order Date X ray : Foot, right 3V 12/10/2022 Insurance Providers Payer Name Payer Address Payer Phone Subscriber Number Group Number Insured Name Patient Relationship to Insured Coverage Start Date [facility]age End Date [facility] [address] [place] [address] [phone] [id number] Anya Nunez Self - patient is the insured Medical (General) History Medical History History ICD Code Anxiety asthma Cataracts Diverticulosis Lung disease Measles Chicken pox COPD Surgical History Surgery Date(Month/Year) 1997
--- OUTSIDE RECORDS SUMMARY | 2025-03-10 14:45 | XMS_ITS | Encounter Summary ---
Author Organization [facility] Address [address] [facility] 7 [place] [address] Care Team Providers Care Emt/Paramedic Name Role Phone Clarita Fountain MD Primary Care Pro vider Encounter Details Date Type Department Care Team (Late st Contact Info) Description 10/09/2023 Orders Only [facility] [address] [place] [address] [phone] Tylor Baker MD [address] [place] [phone] Social History Tobacco Use Types Packs/Day Years Used Date Smoking Tobacco: Never Assessed Comments Unknown Sex and Gender Information Value Date Recorded Sex Assigned at Female 09/24/2023 11:15 AM EST Legal Sex Female 11:14 AM EST Gender Identity Female 09/24/2023 11:21 AM EST Sexual Orientation Bisexual 09/24/2023 11 :21 AM EST documented as of this encounter Plan of Treatment Upcoming Encounters Date Type Department Care Team (Late st Contact Info) Description 04/08/2025 9:30 AM EDT Office Visit [facility] MEDICINE [address] [place] [address] Clarita Fountain MD [address] [place] [address] documented as of this encounter Procedures Procedure Name Priority Date/Time Associated Diagnosis Comments HPV MRNA E6/E7 REFLEX TO HPV 16, 18/45 Routine 12/08/2023 9:45 AM EST documented in this encounter Results * HPV mRNA E6/E7 w/Reflex to HPV Genotypes 16, 18/45 (12/08/2023 9:45 AM EST) HPV nRNA E6/E7 Not Detected Not Detected [facility] Comment:Methodology: Transcr iption-Mediated AmplificationThis assay detects E6/E7 viral messenger RNA (mRNA) from 14high-risk HPV types (16,18,31,33,35,39,45,51,52,56,58,59,66,68).Cervical sources are required for HPV testing.If a vaginal source from a patient who has had atotal hysterectomy with removal of cervix wassubmitted, please contact the testing laboratoryfor alternative testing options.For additional information, please refer tohttp://education.Loyalis/faq/IDH153i9(This link if provided for information/educational purposes only.)THIS TEST WAS PERFORMED AT:[facility] [place] [id number] SUTTON MD HPV mRNA E6/E7 [facility] HPV 16 RNA [facility] HPV 18/45 RNA [facility] 12/08/2023 9:45 AM EST 12/09/2023 8:00 AM EST us Alie Murdock [facility] CYTOLOGY ORDERABLES F inal Result [facility] [address] [place] [phone] [phone] documented in this encounter Visit Diagnoses Not on filedocumented in this encounter Care Teams Emt/Paramedic Relationship Specialty Start Date End Date Clarita Fountain MD [address] [place] [address] PCP - General Internal Medicine 11/13/23 documented as of this encounter
== END 2025-03-10 14:03 | disposition home or self-care (01) ==
LOC: HO.SH 14:02
PROVIDERS: Visit Provider Student in an Organized Health Care Education/Training Program
DX: Z01.118 Encounter for examination of ears and hearing with other abnormal findings (principal); H90.3 Sensorineural hearing loss, bilateral
CPT/HCPCS: 92557; 92567

== ENCOUNTER 2025-04-05 12:46 | Outpatient (REF) | payer BC, SELFPAY ==
--- OUTSIDE RECORDS SUMMARY | 2025-04-05 14:57 | XMS_ITS | Encounter Summary ---
Author Organization [employer] Address [address] [facility] 7t [place] [address] Care Team Providers Care Supervisor Photostat Name Role Phone Clarita Fountain MD Primary Care Pro vider Reason for Visit * Reason Comments Med Refill Encounter Details Date Type Department Care Team (Late st Contact Info) Description 09/07/2024 Refill [facility] MEDICINE [address] [place], [place] [phone] Clarita Fountain MD [address] [place], [place] [phone] Social History Tobacco Use Types Packs/Day Years [...] the past 12 months, has t he [employer], gas, oil or water [employer] threatened to shut off services in your [...] Description 04/08/2025 9:30 AM EDT Office Visit [facility] MEDICINE [address] [place] [address] Clarita Fountain MD [address] [place] [address] [phone] documented as of this encounter Visit Diagnoses Not on filedocumented in this encounter Care Teams Supervisor Photostat Relationship Specialty Start Date End Date Clarita Fountain MD [address] [place] [address] [phone] PCP - General Internal Medicine 11/13/23 documented as of this encounter
== END 2025-04-05 12:47 | disposition home or self-care (01) ==
LOC: HO.MAMMO 12:46
PROVIDERS: PCP Student in an Organized Health Care Education/Training Program; Visit Provider Student in an Organized Health Care Education/Training Program
DX: Z12.31 Encounter for screening mammogram for malignant neoplasm of breast (principal)
CPT/HCPCS: 77063; 77067

== ENCOUNTER → 2025-04-05 13:00 | Outpatient (BNV) | payer BC, SELFPAY | PROVIDERS: PCP Student in an Organized Health Care Education/Training Program; Visit Provider Internal Medicine | DX: Z12.31 Encounter for screening mammogram for malignant neoplasm of breast (principal) | CPT/HCPCS: 77063; 77067 ==

== ENCOUNTER 2025-05-24 10:08 | Outpatient (REF) | payer BC, SELFPAY ==
[2025-05-24 10:44] LABS: Hematocrit 36.6 % (37.0-47.0); Hemoglobin 11.9 g/dl (12.0-16.0); Mean Corpuscular HGB Conc 32.5 g/dl (31.0-35.0); Mean Corpuscular Hemoglobin 31.9 pg (27.0-33.0); Mean Corpuscular Volume 98.1 fL (80.0-98.0); NRBC Abs Auto 0.000 X10*3/uL (0.0-0.012); NRBC Pct Auto 0.0 /100WBC (0.0-0.2); Platelet Count 323 X10*3/uL (160-400); Red Blood Count 3.73 X10*6/uL (4.20-5.50); White Blood Count 8.0 X10*3/uL (4.8-10.8)
[2025-05-24 10:52] LABS: Hemoglobin A1C 117.8338 umol/L; Total Hemoglobin (HGBA1C) 3233.4100 umol/L
--- OUTSIDE RECORDS SUMMARY | 2025-05-24 10:54 | XMS_ITS | Encounter Summary ---
Author Organization [employer] Address [address] [facility] 7t [place] [address] Care Team Providers Care Dust Mop Maker Name Role Phone Clarita Fountain MD Primary Care Pro vider Reason for Visit * Reason Comments Med Refill Encounter Details Date Type Department Care Team ([facility] st Contact Info) Description 09/07/2024 Refill [facility] MEDICINE [address] [place], [place] [phone] Clarita Fountain MD [address] [place], [place] [phone] Social History Tobacco Use Types Packs/Day Years [...] your housing situation today? I have belem maverick 11/05/[address] you li [...] Care Team (Late st Contact Info) Description 06/14/2025 9:00 AM EDT Office Visit [facility] MEDICINE [address] [place] [address] Clarita Fountain MD [address] [place] [address] documented as of this encounter Visit Diagnoses Not on filedocumented in this encounter Care Teams Dust Mop Maker Relationship Specialty Start Date End Date Clarita Fountain MD [address] [place] [phone] PCP - General Internal Medicine 11/13/23 documented as of this encounter
--- OUTSIDE RECORDS SUMMARY | 2025-05-24 10:54 | XMS_ITS | Patient Health Record ---
Author Organization [facility] kendall [place] Address [address] [place] [address] Care Team Providers Care Metal Off Bearer Name Role Phone Clarita Fountain Primary Care Provider Levi Hobbs Unavailable [phone] Allergies Allergen (clinical drug ingredient) Drug/Non Drug [...] Once a day Active ProAir HFA Active Night Splint AFO - L1930 ; Duration: 365 days 03/29 Active Immunizations Vaccine Route Administration Date Status Comme nts Influenza Unknown 04/12/2025 Refused Social History Tobacco Use: Social History Observation Description Date Details (start date - stop date) Never Smoker NA - NA Tobacco use other than smoking: Question Answer Notes Are you an other tobacco user? No Tobacco Control (Standard) Question Answer Notes Tobacco use: Nonsmoker Additional Findings: Tobacco non-user Current no nsmoker AUDIT-C (Standard) Question Answer Notes Did you have a drink containing alcohol in the p ast year? No Points 0 Interpretation Negative Problems Problem Type SNOMED Code ICD Code Onset Dates Problem Status W/U Status Risk Notes Problem Plantar fasciitis of right foot (5448866978407 9101) Plantar fasciitis of right foot (M72.2) Active confirmed Problem Interstitial myositis of right foot (M60.171) Active confirmed Vital Signs Blood pressure diastolic 75 mm Hg 04/12/2025 Height 5ft 3in in 04/12/2025 Blood pressure systolic 120 mm Hg 04/12/2025 Weight 112 lbs 04/12/2025 BMI 19.84 kg/m2 04/12/2025 Encounters Encounter Location Date Provider [facility] [address] [place] [address] 04/12/2025 Levi Nicholas Pain in right foot M79.671 ; Plantar fasciitis of right foot M72.2 ; Calcaneal spur, right foot M77.31 ; Interstitial myositis of right foot M60.171 and Bursitis of right foot M77.51 [facility] [address] [place] [phone] 04/21/2025 Levi Peterson Assessments Encounter Date Diagnosis (ICD Code) Assessment Notes Treatment Notes Treatment Clinical Notes Section Notes 04/12/2025 Pain in right foot (ICD-10 - M79.671) 04/12/2025 Plantar fasciitis of right foot (ICD-10 - M72.2) Patient Educated with: HEEL CORD STRETCHES.pdf (HEEL CORD STRETCHES.pdf) Patient Educated with: RICE THERAPY.pdf (RICE THERAPY.pdf) 04/12/2025 Calcaneal spur, right foot (ICD-10 - M77.31) 04/12/2025 Interstitial myositis of right foot (ICD-10 - M60.171) 04/12/2025 Bursitis of right foot (ICD-10 - M77.51) Plan Of Treatment Pending Test Test Name Order Date X ray : Foot, right 3V 12/10/2022 X ray : Foot, right 3V 04/12/2025 Insurance Providers Payer Name Payer Address Payer Phone Subscriber Number Group Number Insured Name Patient Relationship to Insured Coverage Start Date Coverage End Date [facility] [address] [place] [address] [phone] [id number] Anya Nunez Self - patient is the insured Medical (General) History Medical History History ICD Code Anxiety asthma Cataracts Diverticulosis Lung disease Measles Chicken pox COPD Surgical History Surgery Date(Month/Year) 1997
--- OUTSIDE RECORDS SUMMARY | 2025-05-24 10:54 | XMS_ITS | Patient Health Record ---
Author Organization [facility] Cli linda Address [address] [place] [address] Care Team Providers Care Defensive Fire Control Systems Operator Name Role Phone ROSANGELA WOLFENVALENTEDEMETRI Primary Care Provider Allergies Allergen (clinical drug ingredient) Drug/Non Drug Allergy documented on EMR Reaction Allergy Type Onset Date Status Latex latex (uncoded) Unknown Allergy Acti ve Penicillin G Benzathine Unknown Drug Allergy Active acetaminophen / oxycodone Percocet Unknown Drug Allergy Active Reason For Referral No Information Medications Medication SIG (Take, Route, Frequency, Duration) Notes Start Date End Date Status Flovent HFA 110 MCG/ACT 1 puff Inhalatio n Twice a day; Duration: 30 days Active ProAir HFA 108 (90 Base) MCG/ACT 1 puff as needed Inhalation every 4 hrs; Duration: 30 days Active Ibuprofen 200 MG 1 tablet with food o r milk as needed Orally Three times a day otc tid Active Montelukast Sodium 10 MG Take 1 tablet b y mouth once daily; Duration: 30 Active Trelegy Ellipta 100-62.5-25 MCG/INH 1 puff Inhalation Once a day; Duration: 30 days Active Social History Tobacco Use: Social History Observation Description Date Details (start date - stop date) Former Smoker NA - NA Tobacco Use/Smoking Question Answer Notes Are you a former smoker How long has it been since you last smoked? 1-5 years Alcohol Screen (Audit-C) Question Answer Notes Did you have a drink contain ing alcohol in the past year? Yes How often did you have a dri nk containing alcohol in the past year? Monthly or less (1 point) How many drinks did you have on a typical day when you were drinking in the past year? 1 or 2 drinks (0 point) How often did you have 6 or more drinks on one occasion in the past year? Never (0 point) Points 1 Interpretation Negative Problems Problem Type SNOMED Code ICD Code Onset Dates Problem Status W/U Status Risk Notes Problem COPD - Chronic obstructive pulmonary disease (62006808) Chronic obstructive pulmonary disease, unspecified COPD type (J44.9) Active confirmed Problem Arthritis (8761458) Arthritis (M19.90) Active confirmed Problem Alopecia (62068091) Hair loss (L65.9) Active confirmed Problem Asthma (262621454) Asthma (J45.909) Active confirmed Plan Of Treatment Pending Test Test Name Order Date X ray : Chest 02/20/2021 Hemoglobin A1c 01/07/2022 Vitamin D, 25-Hydroxy 01/07/2022 IRON, TIBC AND FERRITIN PANEL 01/07/2022 LIPID PANEL WITH RATIOS 01/07/2022 COMPREHENSIVE METABOLIC PANEL 01/07/2022 CBC (INCLUDES DIFF/PLT) 01/07/2022 VITAMIN B12/FOLATE, SERUM PANEL 01/08/20 TSH W/REFLEX TO FT4 01/07/2022 Insurance Providers Payer Name Payer Address Payer Phone Subscriber Number Group Number Insured Name Patient Relationship to Insured Coverage Start Date Coverage End Date [facility] [address] [facility] [place] [phone] [id number] Anya Caballero i Self - patient is the insured Medical (General) History Medical History History ICD Code carpul tunnel heart issues ibs feet issues emphysemia bruise easilly Surgical History Surgery Date(Month/Year) c section x2 2 ft of intestines removed 1 day old
[2025-05-24 11:22] LABS: Alanine Aminotransferase 23 U/L (0-31); Albumin Level 4.3 g/dL (3.5-5.0); Alkaline Phosphatase 67 U/L (39-117); Anion Gap 13 (12-20); Aspartate Amino Transferase 26 U/L (5-31); Blood Urea Nitrogen 20 mg/dL (9-16); Calcium 9.4 mg/dL (8.4-10.2); Carbon Dioxide 23 mmol/L (22-29); Chloride 110 mmol/L (96-108); Cholesterol 195 mg/dL (<200); Estimated Glomerular Filt Rate > 60; HDL Cholesterol 77 mg/dL (>40); Iron 95 mcg/dL (30-160); Percent Iron Saturation 31 % (15-50); Potassium 4.4 mmol/L (3.3-5.1); Sodium 142 mmol/L (135-145); Total Iron Binding Capacity 305 mcg/dL (228-428); Total Protein 6.7 g/dL (6.5-8.0); Triglycerides 60 mg/dL (<150); Unsaturated Iron Binding 210 ug/dL
[2025-05-24 11:35] LABS: HBS Num1 391.11 mIU/mL (0-7.99); HBc Num1 0.07 S/CO (0.00-0.79); HBsAGNum1 0.27 S/CO (0.00-0.99); HIV Num 1 0.06 S/CO (0.00-0.99); Hepatitis B Surface Antigen Negative (Negative); ~HepC Num1 0.10 S/CO (0.00-0.79); ~Hepatitis B Surface Antibody REACTIVE (Nonreactive); ~Hepatitis C Antibody Nonreactive (Nonreactive)
[2025-05-24 11:36] LABS: Syphilis Screen Nonreactive (Nonreactive)
[2025-05-24 11:39] LABS: Ferritin 20 ng/mL (10-250)
[2025-05-24 11:48] LABS: Folate 14.6 ng/mL (> or = 4.0); Vitamin B12 629 pg/mL (200-900)
[2025-06-01 14:37] LABS: IgE Antibody (Anti-IgE IgG) 54 ng/mL (<168)
== END 2025-05-24 10:09 | disposition home or self-care (01) ==
LOC: HO.LAB 10:08
PROVIDERS: Visit Provider Student in an Organized Health Care Education/Training Program
DX: Z00.00 Encounter for general adult medical examination without abnormal findings (principal); Z11.59 Encounter for screening for other viral diseases; Z11.3 Encounter for screening for infections with a predominantly sexual mode of transmission; Z11.4 Encounter for screening for human immunodeficiency virus [HIV]; D64.9 Anemia, unspecified; D72.10 Eosinophilia, unspecified
CPT/HCPCS: 36415; 80053; 80061; 82306; 82607; 82728; 82746; 83036; 83520; 83540; 84443; 85027; 86682; 86704; 86706; 86780; 86803; 87340; 87389

== ENCOUNTER 2025-06-03 10:27 | Outpatient (REF) | payer BC, SELFPAY ==
--- OUTSIDE RECORDS SUMMARY | 2025-06-03 10:31 | XMS_ITS | Patient Health Record ---
Author Organization [facility] kendall [place] Address [address] [place] [address] Care Team Providers Care [place] Gold Attendant Name Role Phone Clarita Fountain Primary Care Provider Levi Hobbs Unavailable [phone] Allergies Allergen (clinical drug ingredient) Drug/Non Drug [...] Notes Problem Plantar fasciitis of right foot (219232015269158 01) Plantar fasciitis of right foot (M72.2) Active confirmed Problem Interstitial myositis (33568431) Interstitial myositis of right foot (M60.171) Active confirmed Vital Signs Blood pressure diastolic 75 mm Hg 04/12/2025 Height 5ft 3in in 04/12/2025 Blood pressure systolic 120 mm Hg 04/12/2025 Weight 112 lbs 04/12/2025 BMI 19.84 kg/m2 04/12/2025 Encounters Encounter Location Date [facility] [address] [place] [address] 04/12/2025 Leviteresa GeorgesNicholas Pain in right foot M79.671 ; Plantar fasciitis of right foot M72.2 ; Calcaneal spur, right foot M77.31 ; Interstitial myositis of right foot M60.171 and Bursitis of right foot M77.51 [facility] [address] [place] [phone] 04/21/2025 Levi Peterson Assessments Encounter Date Diagnosis [...] Insured Coverage Start Date Coverage End Date [facility] All Others [address] [place] [address] [phone] [id number] Anya Nunez Self - patient is the insured Medical (General) History Medical History History ICD Code Anxiety asthma Cataracts Diverticulosis Lung disease Measles Chicken pox COPD Surgical History Surgery Date(Month/Year) 1985, 1997
--- OUTSIDE RECORDS SUMMARY | 2025-06-03 10:31 | XMS_ITS | Patient Health Record ---
Author Organization [facility] Cli linda Address [address] [place] [address] Care Team Providers Care Director Of Enterprise Applications Name Role Phone ROSANGELA WOLFENVALENTEDEMETRI Primary Care [...] Problem COPD - Chronic obstructive pulmonary disease (78586573) Chronic obstructive pulmonary disease, unspecified COPD type (J44.9) Active confirmed Problem Arthritis (3142724) Arthritis (M19.90) Active confirmed Problem Alopecia (03866356) Hair loss (L65.9) Active confirmed Problem Asthma (144835315) Asthma (J45.909) Active confirmed Plan Of Treatment [...] Insured Coverage Start Date Coverage End Date [facility] [address] [facility] Davenayan GAYE rob [phone] [id number] Anya Caballero i Self - patient is the insured Medical (General) History Medical History History ICD Code carpul tunnel heart issues ibs feet issues emphysemia bruise easilly Surgical History Surgery Date(Month/Year) c section x2 2 ft of intestines removed 1 day old
--- OUTSIDE RECORDS SUMMARY | 2025-06-03 10:31 | XMS_ITS | Encounter Summary ---
Author Organization [employer] Address [address] [facility] 7t [place] [address] Care Team Providers Care Soldering Machine Operator Automatic Name Role Phone Clarita Fountain MD Primary Care Pro vider Reason for Visit * Reason Comments Med Refill Encounter Details Date Type Department Care Team ([facility] st Contact Info) Description 09/07/2024 Refill [facility] MEDICINE [address] [place], [place] [phone] Clarita Fountain MD [address] [place], [place] [phone] Social History Tobacco Use Types Packs/Day Years [...] Description 06/14/2025 9:00 AM EDT Office Visit [facility] MEDICINE [address] [place] [address] Clarita Fountain MD [address] [place] [address] documented as of this encounter Visit Diagnoses Not on filedocumented in this encounter Care Teams Soldering Machine Operator Automatic Relationship Specialty Start Date End Date Clarita Fountain MD [address] [place] [address] PCP - General Internal Medicine 11/13/23 documented as of this encounter
--- NOTE | 2025-06-03 10:43 | PFT_ITS ---
Flows: FEV1: 39 % of predicted at 0.88 L FVC: 87 % of predicted at 2.47 L FEV1/FVC: 36 % Bronchodilator response: Absent Volumes: Total lung capacity: 107 % of predicted at 5.07 L Residual volume: 155 % of predicted at 2.61 L Slow vital capacity: 81 % of predicted at 2.47 L Expiratory reserve volume: 45 % of predicted at 0.32 L Diffusion capacity: Moderately decreased, adjusts to being mildly decreased after correction for alveolar ventilation. Impression: Severe obstructive ventilatory defect with no bronchodilator response. Increased residual volume suggests air trapping. Decreased diffusion capacity suggests emphysema. MTDD
[2025-06-03 11:22] VITALS: PULSE 77; O2SAT 97
== END 2025-06-03 10:28 | disposition home or self-care (01) ==
LOC: HO.RESP 10:27
PROVIDERS: PCP Student in an Organized Health Care Education/Training Program; Visit Provider Student in an Organized Health Care Education/Training Program
DX: J44.1 Chronic obstructive pulmonary disease with (acute) exacerbation (principal)
CPT/HCPCS: 94010; 94640; 94727; 94729

== ENCOUNTER → 2025-06-03 10:43 | Outpatient (BNV) | payer BC, SELFPAY | PROVIDERS: PCP Student in an Organized Health Care Education/Training Program; Visit Provider Internal Medicine Pulmonary Disease | DX: J44.9 Chronic obstructive pulmonary disease, unspecified (principal) | CPT/HCPCS: 94060; 94727; 94729 ==

== ENCOUNTER 2025-06-14 16:58 | Outpatient (REF) | payer BC, SELFPAY ==
[2025-06-14 17:46] LABS: Microalbum/Creatinine Ratio Ur 14.8 ug/mg cr (<30)
--- OUTSIDE RECORDS SUMMARY | 2025-06-14 17:54 | XMS_ITS | Patient Health Record ---
Author Organization [facility] Cli [facility] Address [address] [place] [address] Care Team Providers Care Field Seismologist Name Role Phone ROSANGELA WOLFENVALENTEDEMETRI Primary Care [...] Problem COPD - Chronic obstructive pulmonary disease (71565518) Chronic obstructive pulmonary disease, unspecified COPD type (J44.9) Active confirmed Problem Arthritis (0158701) Arthritis (M19.90) Active confirmed Problem Alopecia (36917996) Hair loss (L65.9) Active confirmed Problem Asthma (587512993) Asthma (J45.909) Active confirmed Plan Of Treatment [...] Insured Coverage Start Date Coverage End Date [facility] [address] [facility] [place] rob [phone] [id number] Anya Caballero i Self - patient is the insured Medical (General) History Medical History History ICD Code carpul tunnel heart issues ibs feet issues emphysemia bruise easilly Surgical History Surgery Date(Month/Year) c section x2 2 ft of intestines removed 1 day old
--- OUTSIDE RECORDS SUMMARY | 2025-06-14 17:54 | XMS_ITS | Encounter Summary ---
Author Organization [employer] Address [address] [facility] [address] 7t [place] [address] Care Team Providers Care Mammographer Name Role Phone Clarita Fountain MD Primary Care Pro vider Encounter Details Date Type Department Care Team (Latest Contact Info) Description 06/14/2025 Travel Social History Tobacco Use Types Packs/Day Years [...] housing situation today? I have belem temple 02/11/[address] you li [...] as of this encounter Plan of Treatment Not on file documented as of this encounter Visit Diagnoses Not on filedocumented in this encounter Additional Health Concerns Assessment Noted Time PHQ-9 Depression Total Score: 3 02/12/20 25 11:22 AM EDT documented as of this encounter Care Teams Mammographer Relationship Specialty Start Date End Date Clarita Fountain MD [address] [place] [address] PCP - General Internal Medicine 11/13/23 documented as of this encounter
--- OUTSIDE RECORDS SUMMARY | 2025-06-14 17:54 | XMS_ITS | Patient Health Record ---
Author Organization [facility] kendall [place] Address [address] [place] [address] Care Team Providers Care Glass Installer Technician Name Role Phone Clarita Fountain Primary Care Provider Levi Hobbs Unavailable [phone] Allergies Allergen (clinical drug ingredient) Drug/Non Drug [...] Notes Problem Plantar fasciitis of right foot (432858254992386 01) Plantar fasciitis of right foot (M72.2) Active confirmed Problem Interstitial myositis (21578138) Interstitial myositis of right foot (M60.171) Active confirmed Vital Signs Blood pressure diastolic 75 mm Hg 04/12/2025 Height 5ft 3in in 04/12/2025 Blood pressure systolic 120 mm Hg 04/12/2025 Weight 112 lbs 04/12/2025 BMI 19.84 kg/m2 04/12/2025 Encounters Encounter Location Date [facility] [address] [place] [address] 04/12/2025 Leviteresa GeorgesNicholas Pain in right foot M79.671 ; Plantar fasciitis of right foot M72.2 ; Calcaneal spur, right foot M77.31 ; Interstitial myositis of right foot M60.171 and Bursitis of right foot M77.51 [facility] [address] [place] [phone] 04/21/2025 Levi Peterson Assessments Encounter Date Diagnosis [...] Insured Coverage Start Date Coverage End Date [facility] All Others [address] [place] [address] [phone] [id number] Anya Nunez Self - patient is the insured Medical (General) History Medical History History ICD Code Anxiety asthma Cataracts Diverticulosis Lung disease Measles Chicken pox COPD Surgical History Surgery Date(Month/Year) 1985, 1997
== END 2025-06-14 16:59 | disposition home or self-care (01) ==
LOC: HO.HHCLNP 16:58
PROVIDERS: Visit Provider Student in an Organized Health Care Education/Training Program
DX: Z00.00 Encounter for general adult medical examination without abnormal findings (principal)
CPT/HCPCS: 82043; 82570

== ENCOUNTER 2025-06-20 13:42 | Outpatient (AMB) | payer BC, SELFPAY ==
[2025-06-20 13:59] VITALS: BP 124/82; PULSE 82; BMI 20.6
--- NOTE | 2025-06-20 13:59 | MHC.OFFVIS ---
Vital Signs 06/20/25 13:59 Height 5 ft 2 in Weight 112 lb 6.972 oz BMI 20.6 BP 124/82 Blood Pressure Location Lt brachial Position Sitting Pulse 82 Intake Visit Reasons: NURSE PRN/Dr. Ravindra Magana/Abn EKG, HTN Intake Note: New patient abnormal ekg and HTN feeling good Booster Station Operator Required: No Controls Operator Molded Goods: Controls Operator Molded Goods Present Accompanied by: Daughter Allergies oxycodone (From Percocet) Allergy (Verified 02/27/25 03:05) Headache Penicillins Allergy (Verified 02/27/25 03:05) Nausea and Vomiting Medication List - Last Reconciled 06/20/25 by Gabriel Diaz MD albuterol sulfate 90 mcg/actuation (ProAir HFA) 2 puffs inhalation Q6H PRN amlodipine 5 mg PO DAILY cholecalciferol (vitamin D3) (Vitamin D3) 25 mcg PO DAILY docusate sodium 200 mg (2 x 100 mg) PO BID ezimhybcgjw-rqgkzruwr-mwupwfbw 100-62.5-25 mcg (Trelegy Ellipta) 1 inh inhalation DAILY ibuprofen 400 mg PO Q8H PRN multivitamin 1 tab PO DAILY HPI Comments Details: Thank you for referring Anya in cardiology consultation today for abnormal EKG and exertional shortness of breath. Patient is a pleasant 64-year-old female with prior history of COPD related to smoking, she has quit about 10 years ago. She also recently was started noticing to have high blood pressure since January. She was then started on amlodipine therapy blood pressures gradually improved. She is doing well from that perspective. Continues to have exertional shortness of breath. She had EKGs done which was a routine purposes, patient not having any new symptoms and was suggested to be abnormal and was referred here for further evaluation. EKGs done here shows normal sinus rhythm with nonspecific STT wave changes when J-point depression. Patient denies any exertional chest pain. Denies any orthopnea, PND, leg edema. No symptoms of claudication. Grandmother on mother's side had coronary artery bypass grafting in 60s. [facility] Medical History COPD (chronic obstructive pulmonary disease) HTN (hypertension) Social History Household Members: Family Household Members Other:: mother and daughter Housing: House Do you presently have visiting nurse or other home services: No Patient Tobacco Use Status: Never used Tobacco service: No Review of Systems Const Denies chills, Denies daytime sleepiness, Denies fatigue, Denies fever(s), Denies frequent falls, Denies poor appetite, Denies snoring, Denies stops breathing during sleep, Denies weakness, Denies weight gain and Denies weight loss Eyes Denies loss of vision ENT Denies dizziness and Denies hearing loss Card Denies chest pain, Denies claudication, Denies leg edema, Denies lightheadedness, Denies palpitations, Denies dyspnea, Denies dyspnea on exertion and Denies orthopnea Resp Denies cough, Denies excessive phlegm production, Denies dyspnea, Denies dyspnea on exertion, Denies snoring and Denies wheezing GI Denies abdominal pain, Denies hematochezia, Denies change in bowel habits, Denies nausea and Denies vomiting Denies urinary frequency and Denies dysuria Musc Denies arthralgias, Denies muscle weakness and Denies numbness Skin/Breast Denies nail changes and Denies rash Neuro Denies Abnormal speech present, Denies dizziness, Denies frequent falls, Denies loss of vision, Denies memory loss, Denies numbness and Denies weakness Psych Denies depression and Denies memory loss Endo Denies fatigue and Denies palpitations Los/Lymph Reports easy bruising and Reports other (anemia) Aller/Immun Denies wheezing Physical Exam Vital Signs: Last Vital Signs Pulse 82 06/20/25 13:59 BP 124/82 06/20/25 13:59 BMI result Body Mass Index 20.6 Const General: cooperative, comfortable, no acute distress, alert, awake and well groomed Nutritional Appearance: thin Orientation/consciousness: patient oriented x3 Limitations: no limitations HEENT Head: Yes normocephalic and Yes atraumatic Neck Neck: Yes trachea midline, Yes supple and Yes no JVD Resp Effort & Inspection: normal respiratory effort Auscultation: clear to auscultation bilaterally and diminished lung sounds Cardio Jugular venous distension: no JVD Rate: regular rate Rhythm: regular rhythm Heart sounds: S1 normal heart sound present, S2 normal heart sound present, no click, no gallops, no murmurs and no rubs GI Auscultation: normal bowel sounds Skin General skin exam: no rashes or lesions noted Neuro General: patient oriented x3 and no focal motor deficits Speech: No Abnormal speech present Extrem General: Yes no clubbing, cyanosis or edema Psych Appearance: grossly normal Office Procedures EKG Details: EKG shows normal sinus rhythm nonspecific STT wave changes 51873-Veqaypdlcoqihhwxg, Complete Assessment & Plan Assessment & Plan (1) Abnormal EKG: Code(s): R94.31 - Abnormal electrocardiogram [ECG] [EKG] Category: Medical Plan: Abnormal EKG in this middle-aged woman with multiple risk factors including hypertension prior smoking as well as family history with exertional shortness of breath. Possible differential diagnose include hypertension related changes, RV strain or obstructive coronary artery disease. Would suggest ECHO cardiogram to assess for RV size and pulmonary hypertension as well as LV systolic function LVH with also suggest exercise myocardial perfusion imaging to evaluate for myocardial ischemia. Meanwhile I have advised her to continue with her amlodipine therapy. Blood pressure is currently well optimized. Follow-up lipid panel with target goal LDL less 100 mg/dL. Continue manage COPD. Smoking cessation was applauded. Will follow up in the clinic after above-mentioned test. Thank you for allowing me to partake in her care Orders: Orders NM cardiolite stress test 2 Weeks R07.9 - Chest pain, unspecified, R94.31 - Abnormal electrocardiogram [ECG] [EKG] CA echo transthoracic complete Today R94.31 - Abnormal electrocardiogram [ECG] [EKG] CA stress test Today R94.31 - Abnormal electrocardiogram [ECG] [EKG] Coding Level of Care Code New Pt Level 4 (70374) Complex EM visit Add On G2211 Diagnoses Abnormal EKG R94.31 CPT Codes EKG - CPT: 03835-Gzdmyytoosvelbpyf, Complete ([id number])
--- OUTSIDE RECORDS SUMMARY | 2025-06-20 15:02 | XMS_ITS | Encounter Summary ---
Author Organization [facility] Address [address] [place] [address] Care Team Providers Care Diploma Medical Assistant Name Role Phone Clarita Fountain MD Primary Care Pro vider Encounter Details Date Type Department Care Team (Late st Contact Info) Description 10/09/2023 Orders Only [facility] [address] [place], [place] [phone] Tylor Baker MD [address] [place], [place] [phone] Social History Tobacco Use Types Packs/Day Years [...] on file documented as of this encounter Procedures Procedure Name Priority Date/Time Associated Diagnosis Comments HPV MRNA E6/E7 REFLEX TO HPV 16, 18/45 Routine 12/08/2023 9:45 AM EST documented in this encounter Results * HPV mRNA E6/E7 w/Reflex to HPV Genotypes 16, 18/45 (12/08/2023 9:45 AM EST) HPV nRNA E6/E7 Not Detected Not Detected [facility] Comment:Methodology: Transcr iption-Mediated AmplificationThis assay detects E6/E7 viral messenger RNA (mRNA) from 14high-risk HPV types (16,18,31,33,35,39,45,51,52,56,58,59,66,68).Cervical sources are required for HPV testing.If a vaginal source from a patient who has had atotal hysterectomy with removal of cervix wassubmitted, please contact the testing laboratoryfor alternative testing options.For additional information, please refer [email or web address](This link if provided for information/educational purposes only.)THIS TEST WAS PERFORMED AT:[facility] [place] [id number] SUTTON MD HPV mRNA E6/E7 [facility] HPV 16 [facility] HPV 18/45 RNA [facility] 12/08/2023 9:45 AM EST 12/09/2023 8:00 AM EST [facility] CYTOLOGY ORDERABLES F inal Result [facility] [address] [place] [address] [phone] documented in this encounter Visit Diagnoses Not on filedocumented in this encounter Care Teams Diploma Medical Assistant Relationship Specialty Start Date End Date Clarita Fountain MD [address] [place] [address] PCP - General Internal Medicine 11/13/23 documented as of this encounter
--- OUTSIDE RECORDS SUMMARY | 2025-06-20 15:02 | XMS_ITS | Encounter Summary ---
Author Organization [facility] Address [address] [facility] [address] [place] [address] Care Team Providers Care Primary School Teacher Name Role Phone Clarita Fountain MD Primary Care Pro vider Reason for Visit * Reason Comments Med Refill Encounter Details Date Type Department Care Team ([facility] st Contact Info) Description 09/07/2024 Refill [facility] [address] [place], [place] [phone] Clarita Fountain MD [address] [place], [place] [phone] Social History Tobacco Use Types Packs/Day Years [...] on filedocumented in this encounter Care Teams Primary School Teacher Relationship Specialty Start Date End Date Clarita Fountain MD [address] [place] [id number] PCP - General Internal Medicine 11/13/23 documented as of this encounter
--- OUTSIDE RECORDS SUMMARY | 2025-06-20 15:02 | XMS_ITS | Patient Health Record ---
Author Organization [facility] kendall Foster Address [address] [place] [address] Care Team Providers Care Marketing Forecaster Name Role Phone Clarita Fountain Primary Care Provider Levi Hobbs Unavailable [phone] Allergies Allergen (clinical drug ingredient) Drug/Non Drug [...] Notes Problem Plantar fasciitis of right foot ([id number]) Plantar fasciitis of right foot (M72.2) Active confirmed Problem Interstitial myositis of right foot (M60.171) Active confirmed Vital Signs Blood pressure diastolic 75 mm Hg 04/12/2025 Height 5ft 3in in 04/12/2025 Blood pressure systolic 120 mm Hg 04/12/2025 Weight 112 lbs 04/12/2025 BMI 19.84 kg/m2 04/12/2025 Encounters Encounter Location Date Provider [facility] [address] [place] [address] 04/12/2025 Levi Nicholas Pain in right foot M79.671 ; Plantar fasciitis of right foot M72.2 ; Calcaneal spur, right foot M77.31 ; Interstitial myositis of right foot M60.171 and Bursitis of right foot M77.51 [facility] [address] [place] [phone] 04/21/2025 Levi Peterson Assessments Encounter Date Diagnosis [...] Insured Coverage Start Date Coverage End Date [facility] [employer] [address] [place] [address] [phone] [id number] Anya Nunez Self - patient is the insured Medical (General) History Medical History History ICD Code Anxiety asthma Cataracts Diverticulosis Lung disease Measles Chicken pox COPD Surgical History Surgery Date(Month/Year) 1997
--- OUTSIDE RECORDS SUMMARY | 2025-06-20 15:02 | XMS_ITS | Clinical Summary ---
Author Organization [employer] Address [address] [place] [address] Care Team Providers Care Strip Cleaner Name Role Phone Clarita Fountain MD Primary Care Pro vider Allergies No known active allergies Medications ibuprofen 200 MG tablet Take by mouth. Activ e Blood Pressure kit 1 Device Once per day. 1 kit Active amLODIPine (Norvasc) 5 MG tabletIndicatio ns:Annual physical exam Take 1 tablet (5 mg) by mouth Once per day. 90 tablet 1 025 2025 Active albuterol 108 (90 Base) MCG/ACT inhalerIndicati ons:Mild intermittent asthma without complication Inhale 2 puffs every 6 (six) hours if needed for wheezing. 18 g 5 025 2025 Active Multiple Vitamin (multivitamin) tablet Take 1 tablet by mouth Once per day. 90 tablet 1 Active ipratropium-alb uterol (Duo-Neb) 0.5-2.5 mg/3 mL nebulizer solution TAKE 3 ML BY NEBULIZATION ROUTE EVERY 6 HOURS 180 mL 2 Active Trelegy Ellipta 100-62.5-25 MCG/ACT aerosol powder Take 1 puff by mouth in the morning. 3 each 5 025 Active Multiple Vitamin (multivitamin) tablet Take 1 tablet by mouth in the morning. 2024 Discontinued(R eorder (will not trigger notification to Pharmacy)) Trelegy Ellipta 100-62.5-25 MCG/ACT aerosol powder Take 1 puff by mouth Once daily. 3 each 3 024 2024 Discontinued(R eorder (will not trigger notification to Pharmacy)) ipratropium-alb uterol (Duo-Neb) 0.5-2.5 mg/3 mL nebulizer solution TAKE 3 ML BY NEBULIZATION ROUTE EVERY 6 HOURS 180 mL 2 025 2024 Discontinued(R eorder (will not trigger notification to Pharmacy)) albuterol 108 (90 Base) MCG/ACT inhalerIndicati ons:Mild intermittent asthma without complication Inhale 2 puffs every 6 (six) hours if needed for wheezing. 18 g 11 025 2024 Discontinued(R eorder (will not trigger notification to Pharmacy)) Diclofenac Sodium 1 % gel Apply 1 Application topically if needed each day (hand pain). 100 g 1 025 2024 Discontinued(O ther) amLODIPine (Norvasc) 5 MG tabletIndicatio ns:Annual physical exam Take 1 tablet (5 mg) by mouth Once per day. 90 tablet 025 2024 Discontinued(R eorder (will not trigger notification to Pharmacy)) Active Problems Problem Noted Date Diagnosed Date Plantar fasciitis 06/14/2025 Hypertension 02/11/2025 Other constipation 02/11/2025 Abnormal EKG 02/11/2025 Hearing loss 02/11/2025 Depression 02/11/2025 Weight loss 02/11/2025 Generalized osteoarthritis of hand 11/15/2023 History of tobacco use 11/15/2023 COPD exacerbation 11/15/2023 Health care maintenance 11/15/2023 Encounters Date Type Department Care Team Description 06/14/2025 9:00 AM EDT Office Visit [facility] [address] [place] [phone] Clarita Fountain MD Screening for colon cancer (Primary Dx); Abnormal EKG; Primary hypertension; Health care maintenance; COPD exacerbation ([facility]); History of tobacco use; Plantar fasciitis; Annual physical exam; Mild intermittent asthma without complication 06/14/2025 Travel 06/13/2025 Travel 06/13/2025 Telephone [facility] [address] [place] [phone] Clarita Fountain MD Chart Prep 05/21/2025 Refill [facility] [address] [place] [address] Clarita Fountain MD Annual physical exam 04/20/[address] [address] Clarita Fountain MD Nurse Triage 04/13/[address] [address] Ashley Ferro [place] normal moira 04/12/2025 Results Follow-Up [address] [address] Clarita Fountain MD BI Mammogram Screening Tomosynthesis Bilateral, CBC, Hemoglobin A1c, Additional followed-up results: 04/08/2025 9:30 AM EDT Office Visit [address] [address] Clarita Fountain MD Mild intermittent asthma without complication (Primary Dx); Postmenopausal; Annual physical exam; Anemia, unspecified type; Eosinophilia, unspecified type; Primary hypertension; Health care maintenance; History of tobacco use; COPD exacerbation ([facility]) 04/08/2025 Travel 04/07/[address] [phone] Clarita Fountain MD Chart Prep 03/25/[address] [address] Clarita Fountain MD Annual physical exam from Last 3 Months Immunizations Immunization Administration Dates Next Due Influenza, IIV3, injectable 07/15/2008 Pneumococcal Conjugate PCV 20 02/11/2025 Tdap 04/22/2023,05/25/2008 Family History Medical History Relation Name Comments Lung cancer Maternal Grandfather HTN Mother Lupus Mother Relation Name Status Comments Maternal Grandfather Mother Social History Tobacco Use Types Packs/Day Years Used Date Smoking Tobacco: Former Passive Smoke Exposure: Past Smokeless Tobacco: Never Tobacco Cessation:Counseling Given: Not Answered Comments:Started smoking 24 to 54 y if [...] Sign Reading Time Taken Comments Blood Pressure 110/70 06/14/2025 9:02 AM EDT Pulse 72 06/14/2025 9:02 AM EDT Temperature 36.2 C (97.1 F) 06/14/2025 9:02 AM EDT Respiratory Rate 20 06/14/2025 9:02 AM EDT Oxygen Saturation 98% 04/08/2025 9:13 AM EDT Inhaled Oxygen Concentration - - Weight 52.1 kg (114 lb 12.8 oz) 06/14/2025 9:02 AM EDT Height 156 cm (5' 1.42 ) 06/14/2025 9:02 AM EDT Body Mass Index 21.4 06/14/2025 9:02 AM EDT Plan of Treatment Health Maintenance Due Date Last Done Comments CT Colonography 1960 Colonoscopy 1960 Colorectal Cancer Screening 1960 FIT DNA/Cologuard 1960 FIT 1960 FOBT 1960 Sigmoidoscopy 1960 Zoster Vaccines (1 of 2) 2011 RSV Patients and Patients Aged 60 years or older (1 - Risk 60-74 years 1-dose series) 2021 COVID-19 Vaccine ( - 2023-2 5 season) 2024 Influenza Vaccine (#1) 2025 07/15/2008 Alcohol/Substance Use Screening 02/11/2026 02/11/2025 Depression Screening 02/11/2026 02/11/2025, 02/11/2025 SDOH Screening 02/11/2026 02/11/2025 Disability Screening 06/13/2026 06/13/2025 Tobacco Screening 06/14/2026 06/14/2025 Pap Smear 12/08/2026 12/08/2023 Mammogram 04/05/2027 04/05/2025, 12/02/2023 Cervical Cancer Screening 12/08/2028 HPV/Cotest 12/08/2028 12/08/2023 Lipid Panel 05/24/2030 05/24/2025 DTaP/Tdap/Td Vaccines (3 - T d or Tdap) 04/22/2033 04/22/2023, 05/25/2008 Pneumococcal Vaccine: 50+ Years Completed 02/11/2025 HIV Screening Completed 05/24/2025 Hepatitis C Screening Completed 05/24/2025 HIB Vaccines Aged Out No longer eligi [...] Procedure Name Priority Date/Time Associated Diagnosis Comments ALBUMIN, RANDOM URINE W/CREATININE Routine 06/14/2025 9:40 AM EDT Annual physical exam IGE ANTIBODY (ANTI IGE IGG) Routine 05/24/2025 10:31 AM EDT Eosinophilia, unspecified type STRONGYLOIDES AB IGG Routine 05/24/2025 10:31 AM EDT Eosinophilia, unspecified type FERRITIN Routine 05/24/2025 10:31 AM EDT Anemia, unspecified type IRON AND TOTAL IRON BINDING CAPACITY Routine 05/24/2025 10:31 AM EDT Anemia, unspecified type VITAMIN D,25-OH,TOTAL,IA Routine 05/24/2025 10:31 AM EDT Annual physical exam VITAMIN B12/FOLATE, SERUM PANEL Routine 05/24/2025 10:31 AM EDT Annual physical exam TSH W/REFLEX TO FT4 Routine 05/24/2025 1 0:31 AM EDT Annual physical exam SYPHILIS SCREEN Routine 05/24/2025 10:31 AM EDT Annual physical exam LIPID PANEL, STANDARD Routine 05/24/2025 10:31 AM EDT Annual physical exam HIV 1/2 ANTIGEN/ANTIBODY, FOURTH GENERATION W/RFL Routine 05/24/2025 10:31 AM EDT Annual physical exam HEPATITIS C AB W/REFL TO HCV RNA, QN, PCR Routine 05/24/2025 10:31 AM EDT Annual physical exam HEPATITIS B SURFACE ANTIGEN, EIA Routine 05/24/2025 10:31 AM EDT Annual physical exam HEPATITIS B SURFACE ANTIBODY, QUALITATIVE Routine 05/24/2025 10:31 AM EDT Annual physical exam HEPATITIS B CORE AB TOTAL Routine 05/24/2025 10:31 AM EDT Annual physical exam HEMOGLOBIN A1C Routine 05/24/2025 10:31 AM EDT Annual physical exam COMPREHENSIVE METABOLIC PANEL Routine 05/24/2025 10:31 AM EDT Annual physical exam CBC Routine 05/24/2025 10:31 AM EDT Annual physical exam BI MAMMOGRAM SCREENING TOMOSYNTHESIS BILATERAL Routine 04/05/2025 12:58 PM EDT Breast cancer screening by mammogram HPV MRNA E6/E7 REFLEX TO HPV 16, 18/45 Routine 12/08/2023 9:45 AM EST PAP SMEAR Routine 12/08/2023 9:45 AM EST Cervical cancer screening from Last 3 Months or Most Recently Relevant to Health Maintenance Results * Albumin, Random Urine W/Creatinine (06/14/2025 9:40 AM EDT) Creatinine, Urine 53.93 mg/dL [facility] Microalbumin Urine 8.0 mg/L [facility] Microalbum Creatinine Ratio Ur 14.8 <30 ug/mg cr [facility] Comment:Albumin/Creatinine R atio Reference Ranges: Normal: < 30 ug/mg creatinine Microalbuminuria: 30 - 300 ug/mg creatinineClinical Albuminuria: > 300 ug/mg creatinine Urine (Urine, Random) 06/14/2025 9:40 AM EDT 06/14/2025 4:59 PM EDT us Clarita Magana MD LAB URINE ORDERAB LES Final Result Performing Organization Address City/[facility]/ZIP Co de Phone Number [facility] [address] [place] [address] [phone] * Syphilis Screen (05/24/2025 10:31 AM EDT) Syphilis Screen Nonreactive Nonreactive [facility] Blood 05/24/2025 10:3 1 AM EDT 05/24/2025 10:31 AM EDT Clarita Magana MD LAB BLOOD ORDERAB LES Final Result Performing Organization Address [facility] Co de Phone Number [facility] [address] [place] [address] [phone] * Vitamin D, 25-Hydroxy, Total, Immunoassay (05/24/2025 10:31 AM EDT) Vitamin D 25-OH Total 58.7 >30 ng/mL [facility] Comment: Health Based Reference Values*< 20 ng/mL Orzyhzqcs83-50 ng/mL Insufficient> 30 ng/mL Sufficient*Teresa CHAN. N Engl J Med. 2007;357:266-280There is no well-established upper level of normal vitamin Dlevels. Some laboratories use 50 ng/mL as an upper limit ofnormal. However, toxicity is patient-dependent and may occurat any level. Careful correlation with the patient'spresentation is necessary and, if there is concern forvitamin D toxicity, treatment should be consideredirrespective of the serum level.Care must be taken in interpreting Vitamin D results fromdifferent laboratories and methodologies. Published datademonstrated that results from patients undergoinghemodialysis may show a negative bias when tested withvarious automated 25-OH vitamin D assays when compared toLC-MS/MS.When testing samples from patients whose predominant form ofVitamin D is Vitamin D2, such as patients receiving VitaminD2 supplementation, results that are subtherapeutic shouldbe confirmed with another method such as LC-MS/MS. Blood Venous blood specimen / Unknown 05/24/2025 10:31 AM EDT 05/24/2025 10:31 AM EDT us Clarita Magana MD LAB BLOOD ORDERAB LES Final Result Performing Organization Address City/[facility] Co de Phone Number [facility] [address] [place] [phone] * Vitamin B12 (Cobalamin) and Folate Panel, Serum (05/24/2025 10:31 AM EDT) Vitamin B12 629 200 - 900 pg/mL [facility] Comment:NORMAL 200-900 PG/ML INDETERMINATE 160-199 PG/ML DEFICIENT < 160 PG/ML Folate 14.6 > or = 4.0 ng/mL [facility] Comment:Reference Values:> o r = 4.0 ng/mL< 4.0 ng/mL suggests folate deficiency Methotrexate, aminopterin and folinic acid(leucovorin) are chemotherapeutic agents whose molecularstructures are similar to folate; therefore, the Architectfolate assay cannot be used for patients using these drugs. Blood 05/24/2025 10:3 1 AM EDT 05/24/2025 10:31 AM EDT us Clarita Magana MD LAB BLOOD ORDERAB LES Final Result Performing Organization Address [facility] Co de Phone Number [facility] [address] [place] [phone] * TSH with Reflex to Free T4 (05/24/2025 10:31 AM EDT) TSH reflex Free T4 1.38 0.32 - 4.0 uIU/mL [facility] Blood 05/24/2025 10:3 1 AM EDT 05/24/2025 10:31 AM EDT Clarita Magana MD LAB BLOOD ORDERAB LES Final Result [facility] [address] [place] [phone] * Strongyloides Antibody (IgG) (05/24/2025 10:31 AM EDT) Strongyloides Antibody IgG NEGATIVE [facility] Comment:REFERENCE RANGE: NEG ATIVEStrongyloides stercoralis is a parasiticNematode found in tropical and subtropicalregions. Because of low larval densities infeces, stool examination is a relativelyinsensitive diagnostic test; antibody detectionoffers increased sensitivity. Patients withlatent infections who are immunosuppressed orreceiving immunosuppressive therapy are at riskof life- threatening hyperinfection. Significantcrossreactivity may be observed in otherhelminth infections.THIS TEST WAS PERFORMED AT:[facility] [id number] [place] [id number] MARTIN MD,PHD,DENIA Blood Venous blood specimen / Unknown 05/24/2025 10:31 AM EDT 05/24/2025 10:31 AM EDT Clarita Magana MD LAB BLOOD ORDERAB LES Final Result Performing Organization Address [facility] Co de Phone Number [facility] [address] [place] [phone] * IgE Antibody (Anti-IgE IgG) (05/24/2025 10:31 AM EDT) IgE Antibody (Anti-IgE IgG) 54 <168 ng/mL [facility] Comment:This test was develo ped and its analytical performancecharacteristics have been determined by [employer].It has not been cleared or approved by the FDA. This assayhas been validated pursuant to the CLIA regulations and isused for clinical purposes.THIS TEST WAS PERFORMED AT:[facility] [id number] [place] [address]LYBMEENRIQUE MARTIN MD,PHD,DENIA Blood Venous blood specimen / Unknown 05/24/2025 10:31 AM EDT 05/24/2025 10:31 AM EDT Clarita Magana MD LAB BLOOD ORDERAB LES Final Result Performing Organization Address City/[facility]/ZIP Co de Phone Number [facility] [address] [place] [address] [phone] * Hepatitis C Antibody with Reflex to HCV, RNA, Quantitative, Real-Time PCR (05/24/2025 10:31 AM EDT) Hepatitis C Antibody Nonreactive Nonreactive [facility] Comment:Antibodies to HCV no t detected; does not exclude early acuteHCV infection. Blood Venous blood specimen / Unknown 05/24/2025 10:31 AM EDT 05/24/2025 10:31 AM EDT us Clarita Magana MD LAB BLOOD ORDERAB LES Final Result Performing Organization Address City/[facility]/ZIP Co de Phone Number [facility] [address] [place] [phone] * Iron And Total Iron Binding Capacity (05/24/2025 10:31 AM EDT) Iron 95 30 - 160 mcg/dL [facility] Total Iron Binding Capacity 305 228 - 428 mcg/dL [facility] Percent Iron Saturation 31 15 - 50 % [facility] Unsaturated Iron Binding 210 ug/dL [facility] Blood Venous blood specimen / Unknown 05/24/2025 10:31 AM EDT 05/24/2025 10:31 AM EDT us Clarita Magana MD LAB BLOOD ORDERAB LES Final Result Performing Organization Address City/[facility]/ZIP Co de Phone Number [facility] [address] [place] [address] [phone] * Hepatitis B surface antigen, EIA (05/24/2025 10:31 AM EDT) Hepatitis B Surface Ag Negative Negative [facility] Blood Venous blood specimen / Unknown 05/24/2025 10:31 AM EDT 05/24/2025 10:31 AM EDT Clarita Magana MD LAB BLOOD ORDERAB LES Final Result Performing Organization Address City/[facility]/ZIP Co de Phone Number [facility] [address] [place] [phone] * Hepatitis B Core Antibody, Total (05/24/2025 10:31 AM EDT) Pathologist [facility] Hepatitis B Core Antibody Nonreactive Nonreactive [facility] Blood Venous blood specimen / Unknown 05/24/2025 10:31 AM EDT 05/24/2025 10:31 AM EDT Clarita Magana MD LAB BLOOD ORDERAB LES Final Result Performing Organization Address [facility] Co de Phone Number [facility] [address] [place] [phone] * HIV-1/2 Antigen and Antibodies, Fourth Generation, with Reflexes (05/24/2025 10:31 AM EDT) Pathologist [facility] HIV AB/AG Nonreactive Nonreactive [facility] Comment:HIV-1 p24 Ag and/or HIV-1/HIV-2 Ab not detected.A test result that is nonreactive does not exclude thepossibility of exposure to or infection with HIV-1 and/orHIV-2. Nonreactive results in this assay for individualswith prior exposure to HIV-1 and/or HIV-2 may be due toantigen and antibody levels that are below the limit ofdetection of this assay.The rapt.fm HIV Ag/Ab Combo assay result andsupplemental assay results should be interpreted inconjunction with the patient's clinical presentation,history and other laboratory results. If the results areinconsistent with clinical evidence, additional testing issuggested to confirm the result. Blood Venous blood specimen / Unknown 05/24/2025 10:31 AM EDT 05/24/2025 10:31 AM EDT Clarita Magana MD LAB BLOOD ORDERAB LES Final Result Performing Organization Address [facility]/ZIP Co de Phone Number [facility] [address] [place] [phone] * Hepatitis B Surface Antibody, Qualitative (05/24/2025 10:31 AM EDT) Pathologist [facility] ~Hepatitis B Surface Antibody REACTIVE Nonreactive [facility] Comment:REACTIVE: > 11.99 mI U/mL Blood Venous blood specimen / Unknown 05/24/2025 10:31 AM EDT 05/24/2025 10:31 AM EDT Clarita Magana MD LAB BLOOD ORDERAB LES Final Result Performing Organization Address [facility] Co de Phone Number [facility] [address] [place] [address] [phone] * (ABNORMAL) CBC (05/24/2025 10:31 AM EDT) [facility] White Blood Count 8.0 4.8 - 10.8 X10*3/uL [facility] Red Blood Count 3.73(L) 4.20 - 5.50 X10*6/uL [facility] Hemoglobin 11.9(L) 12.0 - 16.0 g/dl [facility] Hematocrit 36.6(L) 37.0 - 47.0 % [facility] Mean Corpuscular Volume 98.1(H) 80.0 - 98.0 fL [facility] Mean Corpuscular Hemoglobin 31.9 27.0 - 33.0 pg [facility] Mean Corpuscular HGB Conc 32.5 31.0 - 35.0 g/dl [facility] Red Cell Distribution Width 12.4 11.0 - 16.0 % [facility] Platelet Count 323 160 - 400 X10*3/uL [facility] Mean Platelet Volume 9.3(L) 9.4 - 12.3 fL [facility] NRBC Pct Auto 0.0 0.0 - 0.2 /100WBC [facility] NRBC Abs Auto 0.000 0.0 - 0.012 X10*3/uL [facility] Blood Venous blood specimen / Unknown 05/24/2025 10:31 AM EDT 05/24/2025 10:31 AM EDT Clarita Magana MD LAB BLOOD ORDERAB LES Final Result Performing Organization Address [facility]/ZIP Co de Phone Number [facility] [address] [place] [phone] * Hemoglobin A1c (05/24/2025 10:31 AM EDT) Hemoglobin A1c 5.5 <6.0 % [facility] Comment:Hemoglobin A1C Refer ence Range Adults: 4.8 - 6.0 % Non diabetic: < 6.0 % Goal: < 7.0 %Additional Action Suggested: > 8.0 %Note: Hemoglobin A1c results are invalid for patients with abnormal amounts of HbF. Blood transfusions may impact the HbA1c concentration in the patient sample. Estimated Average Glucose 111 mg/dL [facility] Comment:eAG = Estimated ave rage glucose which is %A1C expressed asaverage glucose, using the formula of the D1L-VxwvsuzXtncctf Glucose study (ADAG), Diabetes Care, Vol.31,#8,May. 2007 Blood Venous blood specimen / Unknown 05/24/2025 10:31 AM EDT 05/24/2025 10:31 AM EDT Clarita Magana MD LAB BLOOD ORDERAB LES Final Result Performing Organization Address [facility]/ZIP Co de Phone Number [facility] [address] [place] [phone] * Ferritin (05/24/2025 10:31 AM EDT) Ferritin 20 10 - 250 ng/mL [facility] Blood Venous blood specimen / Unknown 05/24/2025 10:31 AM EDT 05/24/2025 10:31 AM EDT us Clarita Magana MD LAB BLOOD ORDERAB LES Final Result Performing Organization Address [facility] Co de Phone Number [facility] [address] [place] [phone] * (ABNORMAL) Lipid Panel, Standard (05/24/2025 10:31 AM EDT) Triglycerides 60 <150 mg/dL [facility] Comment:Desirable Triglyceri de: less than 150 mg/dLBorderline High Triglyceride 150-199 mg/dLHigh Triglyceride: 200-499 mg/dLVery High Triglyceride: greater than or equal to 5OO mg/dL Cholesterol 195 <200 mg/dL [facility] Comment:Desirable Cholestero l: less than 200 mg/dLBorderline High Cholesterol: 200-239 mg/dLHigh Cholesterol: greater than 239 mg/dL LDL Cholesterol Calculated 106(H) <100 mg/dL [facility] Comment:Desirable LDL: less than 100 mg/dLNear Optimal/Above Optimal LDL: 110- 129 mg/dLBorderline High LDL: 130-159 mg/dLHigh LDL: 160-189 mg/dLVery High LDL: greater than or equal to 190 mg/dL HDL Cholesterol 77 >40 mg/dL [facility] Comment:Desirable HDL: great er than 40 mg/dL Note: This HDL assay may give artificially low results in patients with liver disease. Blood Venous blood specimen / Unknown 05/24/2025 10:31 AM EDT 05/24/2025 10:31 AM EDT us Clarita Magana MD LAB BLOOD ORDERAB LES Final Result Performing Organization Address City/[facility]/ZIP Co de Phone Number [facility] [address] [place] [phone] * (ABNORMAL) Comprehensive Metabolic Panel (05/24/2025 10:31 AM EDT) Sodium 142 135 - 145 mmol/L [facility] Potassium 4.4 3.3 - 5.1 mmol/L [facility] Chloride 110(H) 96 - 108 mmol/L [facility] Carbon Dioxide 23 22 - 29 mmol/L [facility] Anion Gap 13 12 - 20 [facility] Urea Nitrogen (BUN) 20(H) 9 - 16 mg/dL [facility] Creatinine, Serum 0.68 0.5 - 1.4 mg/dL [facility] Estimated Glomerular Filt Rate >60 [facility] Comment:Chronic Kidney Disea se: Estimated GFR < 60 mL/min/1.74d5Ykszay Kidney Disease: Estimated GFR < 15 mL/min/1.73m2 Glucose 94 60 - 115 mg/dL [facility] Calcium 9.4 8.4 - 10.2 mg/dL [facility] Bilirubin, Total 0.3 0.0 - 1.0 mg/dL [facility] Aspartate Amino Transferase 26 5 - 31 U/L [facility] Alanine Aminotransferase 23 0 - 31 U/L [facility] Total Protein 6.7 6.5 - 8.0 g/dL [facility] Albumin Level 4.3 3.5 - 5.0 g/dL [facility] Alkaline Phosphatase 67 39 - 117 U/L [facility] Blood Venous blood specimen / Unknown 05/24/2025 10:31 AM EDT 05/24/2025 10:31 AM EDT us Clarita Magana MD LAB BLOOD ORDERAB LES Final Result [facility] [address] [place] [phone] * BI Mammogram Screening Tomosynthesis Bilateral (04/05/2025 12:58 PM EDT) Anatomical Region Laterality Modality Breast Bilateral Mammography 04/05/2025 12:5 8 PM EDT Narrative 04/12/2025 5:53 PM EDT [facility] [address] [place], [place] [address] Mammography Report Signed Patient: Anya Eden MR#: [id number] : 1960 Acct:[id number] Age/Sex: 64 / F ADM Date: 04/05/25 Loc: HO.MAMMO Attending Dr: Clarita Magana MD Ordering Physician: Clarita Fountain MD Re sults: 1Negative Date of Service: 04/05/25 Follow Up: 1 Year From Orig inal Mammogram Procedure(s): MM tomosynthesis screening BI Accession Number(s): [id number] cc: Clarita Fountain MD EXAMINATION: MM SCREENING DIGITAL BREAST TOMOSYNTHESIS, BILATERAL CLINICAL INFORMATION: Screening. Asymptomatic. COMPARISON: Mammography: Comparison is made with available priors TECHNIQUE: Digital breast mammography with tomosynthesis is performed in both the craniocaudal and mediolateral oblique views along with computer-aided detection (CAD). FINDINGS: There are scattered areas of fibroglandular [...] target due date for their next mammogram. Electronically signed by: Kinjal Arambula DO 04/12/2025 05:51 PM EDT Dictated By: Kinjal Arambula DO Signed By: <Electronically signed by Kinjal Arambula DO in OV> 04/12/25 0890 DD/ 1258 TD/TT: 04/05/25 1309 Cyber Security Systems Engineer: Procedure Note Donotuseinterpreter, Image - 04/12/2025 Sameer [facility]'s [address] [place] [address] Mammography Report Signed Patient: Anya [place] MMR#: [id number] : 1960cct:[id number] Age/Sex: 64 / FADM Date: 04/05/25 Loc: HO.MAMMO Attending Dr: Clarita Magana MD Ordering Physician: Clarita Fountain sults: 1Negative Date of Service: 04/05/25Follow Up: 1 Year From Orig inal Mammogram Procedure(s): MM tomosynthesis screening BI Accession Number(s): [id number] cc: Clarita Fountain MD EXAMINATION: MM SCREENING DIGITAL BREAST TOMOSYNTHESIS, BILATERAL CLINICAL INFORMATION: Screening. Asymptomatic. COMPARISON: Mammography: Comparison is made with available priors TECHNIQUE: Digital breast mammography with tomosynthesis is performed in both the craniocaudal and mediolateral oblique views along with computer-aided detection (CAD). FINDINGS: There are scattered areas of fibroglandular [...] target due date for their next mammogram. Electronically signed by: Kinjal Arambula DO 04/12/2025 05:51 PM EDT Dictated By: Kinjal Arambula DO Signed By: <Electronically signed by Kinjal Arambula DO in OV> 04/12/25 2431 DD/ 1258 TD/TT: 04/05/25 1309 Cyber Security Systems Engineer: us Clarita Magana MD IMG BI PROCEDURES Final Result * HPV mRNA E6/E7 w/Reflex to HPV Genotypes 16, 18/45 (12/08/2023 9:45 AM EST) HPV nRNA E6/E7 Not Detected Not Detected [facility] Comment:Methodology: Transcr iption-Mediated AmplificationThis assay detects E6/E7 viral messenger RNA (mRNA) from 14high-risk HPV types (16,18,31,33,35,39,45,51,52,56,58,59,66,68).Cervical sources are required for HPV testing.If a vaginal source from a patient who has had atotal hysterectomy with removal of cervix wassubmitted, please contact the testing laboratoryfor alternative testing options.For additional information, please refer tohttp://education.Combined Effort/faq/BFT736r3(This link if provided for information/educational purposes only.)THIS TEST WAS PERFORMED AT:[facility] [place] [id number] SUTTON MD HPV mRNA E6/E7 [facility] HPV 16 [facility] HPV 18/45 RNA [facility] 12/08/2023 9:45 AM EST 12/09/2023 8:00 AM EST Awa Sal[facility] CYTOLOGY ORDERABLES F inal Result [facility] [address] [place] [phone] * Pap Smear (12/08/2023 9:45 AM EST) Swab Cervix uteri structure / Unknown 12/08/2023 9:45 AM EST 12/09/2023 8:00 AM EST Narrative [facility] - 12/23/2023 1:21 PM EST ----- ------- Name: Anya [place] Age/Sex: 63/F : 1960 Unit#: [id number] Attend Dr: AWA SALINAS [facility] Re12/08/23 Status: DEP REF Location: [facility] Disch: ----- ------- SPEC : [id number] RECD: 12/09/23 STATUS: NICOLASA BRADY NUM: [id number] ZACHERY: 12/08/[address] [facility] [address]: AWA SALINAS [facility] ENTERED: 12/09/23 SP TYPE: Pap Smr OT DR: ORDERED: Pap Smear Interpretation Satisfactory for evaluation. Atrophic. Negative for intraepithelial lesion or malignancy. HPV mRNA E6/E7: NOT DETECTED This assay detects E6/E7 viral messenger RNA (mRNA) from 14 high-risk HPV types (16, 18, 31, 33, 35, 39, 45, 51, 52, 56, 58, 59, 66, 68) HPV testing performed by [facility], [place], [place]. See reference laboratory portion of the EMR for entire report. Clinical Information LMP: Postmenopausal Previous PAP test: Unknown date/findings Material Received ThinPrep-Cervical ----- ------- Signed (signature on file) KYUNG Mooney (ASC) 12/23/23 1321 ----- ------- END OF REPORT us Awa Salinas [facility] CYTOLOGY ORDERABLES F inal Result [facility] [address] [place] [phone] [phone] from Last 3 Months or Most Recently Relevant to Health Maintenance Insurance [facility] PPO Care Teams Strip Cleaner Relationship Specialty Start Date End Date Clarita Fountain MD [address] [place] [phone] PCP - General Internal Medicine 11/13/23
--- OUTSIDE RECORDS SUMMARY | 2025-06-20 15:02 | XMS_ITS | Patient Health Record ---
Author Organization [facility] Cli linda Address [address] [place] [phone] Care Team Providers Care Registered Nurse Step Down Name Role Phone ROSANGELA WOLFENVALENTEDEMETRI Primary Care Provider [phone] Allergies Allergen (clinical drug ingredient) Drug/Non Drug [...] Problem COPD - Chronic obstructive pulmonary disease (57128041) Chronic obstructive pulmonary disease, unspecified COPD type (J44.9) Active confirmed Problem Arthritis (5564813) Arthritis (M19.90) Active confirmed Problem Alopecia (13077962) Hair loss (L65.9) Active confirmed Problem Asthma (072831622) Asthma (J45.909) Active confirmed Plan Of Treatment [...] Insured Coverage Start Date Coverage End Date [facility] [address] [facility] Davenayan GAYE rob [phone] [id number] Anya Caballero i Self - patient is the insured Medical (General) History Medical History History ICD Code carpul tunnel heart issues ibs feet issues emphysemia bruise easilly Surgical History Surgery Date(Month/Year) c section x2 2 ft of intestines removed 1 day old
--- OUTSIDE RECORDS SUMMARY | 2025-06-20 15:02 | XMS_ITS | Encounter Summary ---
Author Organization [employer] Address [address] [facility] 7t [place] [address] Care Team Providers Care Stacker Attendant Name Role Phone Clarita Fountain MD Primary Care Pro vider Reason for Visit * Reason Comments Med Refill Encounter Details Date Type Department Care Team ([facility] st Contact Info) Description 05/21/2025 Refill [facility] MEDICINE [address] [place], [place] [phone] Clarita Fountain MD [address] [place], [place] [phone] Annual physical exam Social History Tobacco Use Types Packs/Day Years [...] documented as of this encounter Visit Diagnoses Diagnosis Annual physical exam Routine general medical examination at a health care facility documented in this encounter Additional Health Concerns Assessment Noted Time PHQ-9 Depression Total Score: 3 02/12/20 25 11:22 AM EDT documented as of this encounter Care Teams Stacker Attendant Relationship Specialty Start Date End Date Clarita Fountain MD [address] [place], [place] [phone] PCP - General Internal Medicine 11/13/23 documented as of this encounter
== END 2025-06-20 14:29 | disposition home or self-care (01) ==
LOC: HO.HCS 13:43
PROVIDERS: PCP Student in an Organized Health Care Education/Training Program; Visit Provider Internal Medicine Cardiovascular Disease
DX: R94.31 Abnormal electrocardiogram [ECG] [EKG] (principal)
CPT/HCPCS: 93010; 99214

== ENCOUNTER → 2025-06-20 13:42 | Outpatient (BNVA) | payer BC, SELFPAY | PROVIDERS: PCP Student in an Organized Health Care Education/Training Program; Visit Provider Internal Medicine Cardiovascular Disease | DX: R94.31 Abnormal electrocardiogram [ECG] [EKG] (principal) | CPT/HCPCS: 93005 ==

== ENCOUNTER 2025-07-12 10:11 | Outpatient (REF) | payer BC, SELFPAY ==
[2025-07-12 14:16] LABS: MANUAL DIFF FLAG NO
[2025-07-12 14:32] LABS: Hematocrit 40.0 % (37.0-47.0); Hemoglobin 12.9 g/dl (12.0-16.0); Imm Gran Abs Auto 0.02 X10*3/uL (0.00-0.03); Imm Gran Pct Auto 0.4 % (0.0-0.4); Lymphocytes Absolute Auto 1.4 X10*3/uL (1.2-4.9); Mean Corpuscular HGB Conc 32.3 g/dl (31.0-35.0); Mean Corpuscular Hemoglobin 31.7 pg (27.0-33.0); Mean Corpuscular Volume 98.3 fL (80.0-98.0); NRBC Abs Auto 0.000 X10*3/uL (0.0-0.012); NRBC Pct Auto 0.0 /100WBC (0.0-0.2); Platelet Count 348 X10*3/uL (160-400); Red Blood Count 4.07 X10*6/uL (4.20-5.50); White Blood Count 5.3 X10*3/uL (4.8-10.8)
[2025-07-13 14:09] LABS: Class Alternaria alternata 0/1; Class Aspergillus fumigatus 1; Class Bermuda Grass 0; Class Birch 0; Class Cat Dander 1; Class Cladosporium herbarum 0; Class Cockroach 0; Class Common Ragweed 0; Class Cottonwood 0; Class Derm. pterony 0; Class Dermatophagoides farinae 0; Class Dog Dander 0; Class Elm 0; Class Maple Box Elder 0; Class Mountain Cedar 0; Class Mouse Urine Protein 0; Class Mugwort 0; Class Oak 0; Class Penicillium crysogenum 0; Class Rough Pigweed 0; Class Sheep Sorrel 0; Class Sycamore 0; Class Timothy Grass 0; Class Walnut Tree 0; Class White Ash 0; Class White Mulberry 0; D002 - IgE D farinae <0.10 kU/L; E001 - IgE Cat Dander 0.47 kU/L; E005 - IgE Dog Dander <0.10 kU/L; G006 - IgE Timothy Grass <0.10 kU/L; I006-IgE Cockroach, German <0.10 kU/L; M002 - IgE Cladosporium herbar <0.10 kU/L; M003 - IgE Aspergillus fumigat 0.51 kU/L; M006 - IgE Alternaria alternat 0.20 kU/L; T001 IgE Maple/Box Elder <0.10 kU/L; T006 - IgE Cedar, Mountain <0.10 kU/L; T007 - IgE Oak, White <0.10 kU/L; T008 IgE Elm, American <0.10 kU/L; T010 - IgE Walnut <0.10 kU/L; T011 - IgE Maple Leaf Sycamore <0.10 kU/L; T014 - IgE Cottonwood <0.10 kU/L; T015 - IgE Ash, White <0.10 kU/L; T070 - IgE White Mulberry <0.10 kU/L; W001 - IgE Ragweed, Short <0.10 kU/L; W006 - IgE Mugwort <0.10 kU/L; W014 IgE Pigweed, Common <0.10 kU/L; W018 IgE Sheep Sorrel <0.10 kU/L
== END 2025-07-12 10:12 | disposition home or self-care (01) ==
LOC: HO.WFDLDS 10:11
PROVIDERS: PCP Student in an Organized Health Care Education/Training Program; Visit Provider Nurse Practitioner Family
DX: J44.9 Chronic obstructive pulmonary disease, unspecified (principal); R06.00 Dyspnea, unspecified; Z91.09 Other allergy status, other than to drugs and biological substances; Z87.891 Personal history of nicotine dependence; Z79.51 Long term (current) use of inhaled steroids
CPT/HCPCS: 36415; 82785; 85025; 86003

== ENCOUNTER 2025-07-12 10:11 | Outpatient (AMB) | payer BC, SELFPAY ==
--- NOTE | 2025-07-12 06:10 | MHC.OFFVIS ---
Vital Signs 07/12/25 10:36 Height 5 ft 2 in Weight 115 lb BMI 21.0 BP 110/64 Blood Pressure Location Lt brachial Position Sitting Pulse 91 Pulse Source Pulse Oximeter Pulse Oximetry (%) 96 Oxygen Delivery Method Room Air Intake Visit Reasons: COPD Supervisor Char House Required: No Director Of Retail Merchandising: Director Of Retail Merchandising offered & declined Accompanied by: Self / Same As Patient Allergies oxycodone (From Percocet) Allergy (Verified 07/12/25 10:43) Headache Penicillins Allergy (Verified 07/12/25 10:43) Nausea and Vomiting Medication List - Last Reconciled 07/12/25 by Vannessa Irizarry LPN albuterol sulfate 90 mcg/actuation (ProAir HFA) 2 puffs inhalation Q6H PRN amlodipine 5 mg PO DAILY cholecalciferol (vitamin D3) (Vitamin D3) 25 mcg PO DAILY docusate sodium 200 mg (2 x 100 mg) PO BID ucziovuzove-xtckhdpak-aesrggxk 100-62.5-25 mcg (Trelegy Ellipta) 1 inh inhalation DAILY ibuprofen 400 mg PO Q8H PRN multivitamin 1 tab PO DAILY HPI HPI COPD: Details: Anya is a pleasant 64 year old female, former 45 pack year smoker, quit 10 years ago with underlying severe COPD, anemia, and HTN. She was referred by PCP for pulmonary evaluation. She reports a history of moderate to severe COPD, with recent breathing tests indicating severe obstructive defect compared to previous assessments conducted in [place]. The patient experiences variable dyspnea, particularly with exertion such as climbing stairs, and reports using albuterol at least once daily for relief up to 3 times per day with good effect. Denies cough or wheezing. She denies any history of intubation or severe respiratory distress requiring hospitalization nor has she required supplemental oxygen. When she was smoking she reported recurrent bronchitis however since quitting has an infrequent URIs. She does have a nebulizer which she uses when she experiences exacerbations. A recent chest X-ray was performed which was unremarkable, but no prior CT chest have been performed. Patient also is undergoing cardiac testing with upcoming echo and stress test to assess for a cardiac etiology contributing to dyspnea. The patient also reports seasonal allergies, which she believes contribute to her respiratory symptoms. She takes allergy medication daily, which provides relief, and has a history of elevated eosinophils, indicating an allergic component to her symptoms. As a child she had allergen immunotherapy but has not been under the care of cotton seed culler in quite some time. Additionally, the patient has a history of anemia, which she manages with dietary adjustments and occasional iron supplementation, though she experiences constipation with iron pills. She has not been evaluated by a wound care physician and has not required hospitalization for anemia. [facility] Medical History (Updated 07/12/25 @ 12:53 by Kassandra Drew NP) COPD (chronic obstructive pulmonary disease) HTN (hypertension) Social History (Updated 07/12/25 @ 10:44 by Vannessa Irizarry LPN) Household Members: Family Household Members Other:: mother and daughter Housing: House Do you presently have visiting nurse or other home services: No Patient Tobacco Use Status: Former Tobacco user Cigarette Packs Per Day: 1.5 Years Smoked: 30 service: No Review of Systems Const Denies chills, Denies excessive sweating, Denies fever(s), Denies headache(s) and Denies night sweats Eyes Denies dry eyes, Denies irritation and Denies itchy eyes ENT Reports Normal hearing present, Denies headache(s) and Denies sore throat Card Denies chest pain, Denies chest pain at rest, Denies chest pain with activity, Denies claudication, Denies leg edema, Denies orthopnea and Denies paroxysmal nocturnal dyspnea Resp Denies chest congestion, Denies cough, Denies excessive phlegm production, Denies pain on inspiration, Denies pain with cough, Denies stridor and Denies wheezing Musc Denies myalgias Neuro Reports Normal hearing present and Denies headache(s) Endo Denies excessive sweating Los/Lymph Denies lymphadenopathy Aller/Immun Denies itchy eyes, Denies seasonal rhinorrhea and Denies wheezing Physical Exam Vital Signs: Last Vital Signs Pulse 91 07/12/25 10:36 BP 110/64 07/12/25 10:36 Pulse Ox 96 07/12/25 10:36 Oxygen Delivery Method Room Air 07/12/25 10:36 BMI result Body Mass Index 21.0 Const General: cooperative, healthy appearing, comfortable, no acute distress, well developed and alert Orientation/consciousness: patient oriented x3 Limitations: no limitations HEENT Head: Yes normal to inspection, Yes normocephalic and Yes atraumatic Ears: hearing grossly normal bilaterally and external ears normal Eyes General: appearance normal, both eyes and all related structures Eyelids: Yes eyelids normal Sclerae: sclerae normal EOM: EOMs intact bilaterally Neck Neck: Yes normal visual inspection and Yes no lymphadenopathy Lymphatic: no lymphadenopathy noted Chest Chest palpation & inspection: normal inspection of the chest Resp Effort & Inspection: normal respiratory effort, able to speak in complete sentences, no audible wheezes, no cough, no stridor, not tachypneic, no tripod positioning, no use of accessory muscles and prolonged expiratory phase Auscultation: diminished lung sounds Cardio Jugular venous distension: no JVD Rate: regular rate Rhythm: regular rhythm Skin Other: warm, dry General skin exam: no rashes or lesions noted Neuro General: patient oriented x3 Cranial nerves: Yes Normal hearing present Cognition (Neuro): normal cognition Gait exam (Neuro): Normal gait present Extrem General: Yes normal to inspection, Yes capillary refill normal, Yes no clubbing, cyanosis or edema and Yes no pedal edema Psych Appearance: grossly normal and well kempt Speech and movement: Normal speech and movement present and Clear speech present Affect: normal affect Attitude: cooperative Thought process: Normal thought process present Thought content: Normal thought content present Insight: Good insight present (Psych) Judgement: Good judgement present (Psych) Results Reviewed Results Reviewed: [address] [address] XRay Report Signed Patient: Anya [place] MR#: [id number] : 1960 Acct:[id number] Age/Sex: 64 / F ADM Date: 02/27/25 Loc: .ED Attending Dr: Ordering Physician: Generic ED Physician Date of Service: 02/27/25 Procedure(s): XR chest 1V Accession Number(s): [id number] cc: Generic ED Physician; Clarita Fountain MD~ CLINICAL HISTORY: cp 1 view chest x-ray. Comparison: CR/SR - XR CHEST 1V - 11/15/22 09:47 EST Findings: Normal lung volumes. Lungs are clear. No pneumothorax or pleural effusion. Heart size normal. No passive venous congestion. No midline shift or tracheal deviation. No acute fracture. Impression: 1. No acute cardiopulmonary disease. This document has been electronically signed by: Sukh Mahoney MD on 02/27/2025 06:02:49 Dictated By: Sukh Mahoney MD Signed By: <Electronically signed by Sukh Mahoney MD in OV> 02/27/25602 DD/ 1 TD/TT: 02/27/25601 Jamb Cutter: Assessment & Plan Assessment & Plan (1) COPD (chronic obstructive pulmonary disease): Code(s): J44.9 - Chronic obstructive pulmonary disease, unspecified Category: Medical (2) Dyspnea: Code(s): R06.00 - Dyspnea, unspecified Category: Medical (3) Environmental allergies: Code(s): Z91.09 - Other allergy status, other than to drugs and biological substances Category: Medical (4) Personal history of tobacco use: Code(s): Z87.891 - Personal history of nicotine dependence Category: Social Hx Plan The patient will continue using albuterol as needed and will have the dose of Trelegy increased to improve symptom control and reduce reliance on albuterol. A baseline chest CT will be obtained to monitor for lung nodules, with annual follow-up scans as part of a lung cancer screening program due to her smoking history. Recent PFT revealed severe obstructive ventilatory defect with no bronchodilator response. Increased residual volume suggests air trapping. Decreased diffusion capacity, 55%, suggests emphysema. The patient will continue daily allergy medication, and additional blood tests will be conducted to assess specific allergens and IgE levels. Consideration for allergy testing and potential alternative treatments, such as injections, if current management is insufficient. All questions were answered and patient is in agreement of plan. Will follow up in 6-8 weeks or sooner if needed. Orders: Orders Complete Blood Count Auto Diff Today Z91.09 - Other allergy status, other than to drugs and biological substances Immunoglobulin E Today Z91.09 - Other allergy status, other than to drugs and biological substances CT chest wo IV con Today Z87.891 - Personal history of nicotine dependence Resp Allergy Profile Region I Today Z91.09 - Other allergy status, other than to drugs and biological substances Medications: New ahphoakrwqy-vuznsxozw-ujvnfvuk 200-62.5-25 mcg (Trelegy Ellipta) 1 inh inhalation DAILY 60 ea 3RF Coding Level of Care Code New Pt Level 4 (82488) Diagnoses COPD (chronic obstructive pulmonary disease) J44.9 Dyspnea R06.00 Environmental allergies Z91.09 Personal history of tobacco use Z87.891
[2025-07-12 10:36] VITALS: BP 110/64; PULSE 91; O2SAT 96; BMI 21.0
--- OUTSIDE RECORDS SUMMARY | 2025-07-12 13:19 | XMS_ITS | Patient Health Record ---
Author Organization [facility] kendall Rougon Address [address] [place] [address] Care Team Providers Care Drafter Civil Engineering Name Role Phone Clarita Fountain Primary Care Provider Levi Hobbs Unavailable [phone] Allergies Allergen (clinical drug ingredient) Drug/Non Drug [...] Notes Problem Plantar fasciitis of right foot (447090312682011 01) Plantar fasciitis of right foot (M72.2) Active confirmed Problem Interstitial myositis (29312087) Interstitial myositis of right foot (M60.171) Active confirmed Vital Signs Blood pressure diastolic 75 mm Hg 04/12/2025 Height 5ft 3in in 04/12/2025 Blood pressure systolic 120 mm Hg 04/12/2025 Weight 112 lbs 04/12/2025 BMI 19.84 kg/m2 04/12/2025 Encounters Encounter Location Date [facility] [address] [place] [address] 04/12/2025 Leviteresa GeorgesNicholas Pain in right foot M79.671 ; Plantar fasciitis of right foot M72.2 ; Calcaneal spur, right foot M77.31 ; Interstitial myositis of right foot M60.171 and Bursitis of right foot M77.51 [facility] [address] [place] [phone] 04/21/2025 Levi Peterson Assessments Encounter Date Diagnosis [...] Insured Coverage Start Date Coverage End Date [facility] Others [address] [place] [address] [phone] [id number] Anya Nunez Self - patient is the insured Medical (General) History Medical History History ICD Code Anxiety asthma Cataracts Diverticulosis Lung disease Measles Chicken pox COPD Surgical History Surgery Date(Month/Year) 1985, 1997
--- OUTSIDE RECORDS SUMMARY | 2025-07-12 13:19 | XMS_ITS | Encounter Summary ---
Author Organization [employer] Address [address] [facility] 7t [place] [address] Care Team Providers Care Nut Chopper Name Role Phone Clarita Fountain MD Primary Care Pro vider Reason for Visit * Reason Comments Med Refill Encounter Details Date Type Department Care Team ([facility] st Contact Info) Description 09/07/2024 Refill [facility]ICINE [address] [place], [place] [phone] Clarita Fountain MD [address] [place], [place] [phone] Social History Tobacco Use Types Packs/Day Years [...] on filedocumented in this encounter Care Teams Nut Chopper Relationship Specialty Start Date End Date Clarita Fountain MD [address] [place] [phone] PCP - General Internal Medicine 11/13/23 documented as of this encounter
--- OUTSIDE RECORDS SUMMARY | 2025-07-12 13:19 | XMS_ITS | Encounter Summary ---
Author Organization [employer] Address [address]t [place] [address] Care Team Providers Care Siderographer Name Role Phone Clarita Fountain MD Primary Care Pro vider Encounter Details Date Type Department Care Team (Late st Contact Info) Description 10/09/2023 Orders Only [facility] [address] [place], [place] [phone] Tylor Baker MD [address] [place], [place] [phone] Social History Tobacco Use Types Packs/Day Years [...] HPV nRNA E6/E7 Not Detected Not Detected [facility] Comment:Methodology: Transcr iption-Mediated AmplificationThis assay detects E6/E7 viral messenger RNA (mRNA) from 14high-risk HPV types (16,18,31,33,35,39,45,51,52,56,58,59,66,68).Cervical sources are required for HPV testing.If a vaginal source from a patient who has had atotal hysterectomy with removal of cervix wassubmitted, please contact the testing laboratoryfor alternative testing options.For additional information, please refer tohttp://education.GetNinjas/faq/HZT885v1(This link if provided for information/educational purposes only.)THIS TEST WAS PERFORMED AT:[facility] [place] [phone] SUTTON MD HPV mRNA E6/E7 [facility] HPV 16 RNA [facility] HPV 18/45 RNA [facility] 12/08/2023 9:45 AM EST 12/09/2023 8:00 AM EST [facility] CYTOLOGY ORDERABLES F inal Result [facility] [address] [place] [address] [phone] documented in this encounter Visit Diagnoses Not on filedocumented in this encounter Care Teams Siderographer Relationship Specialty Start Date End Date Clarita Fountain MD [address] [place] [address] PCP - General Internal Medicine 11/13/23 documented as of this encounter
--- OUTSIDE RECORDS SUMMARY | 2025-07-12 13:19 | XMS_ITS | Encounter Summary ---
Author Organization [employer] Address [address] [facility] 7t [place] [address] Care Team Providers Care Rim Roller Setter Name Role Phone Clarita Fountain MD Primary Care Pro vider Reason for Visit * Reason Comments Med Refill Encounter Details Date Type Department Care Team ([facility] st Contact Info) Description 05/21/2025 Refill [facility] MEDICINE [address] [place], [place] [phone] Clarita Fountain MD [address] [place], [place] [phone] Annual physical exam Social History Tobacco Use [...] documented as of this encounter Care Teams Rim Roller Setter Relationship Specialty Start Date End Date Clarita Fountain MD [address] [place], [place] [phone] PCP - General Internal Medicine 11/13/23 documented as of this encounter
--- OUTSIDE RECORDS SUMMARY | 2025-07-12 13:19 | XMS_ITS | Clinical Summary ---
Author Organization [employer] Address [address] [place] [address] Care Team Providers Care Sdet Name Role Phone Clarita Fountain MD Primary [...] Description 06/14/2025 9:00 AM EDT Office Visit [facility] [address] [place] [phone] Clarita Fountain MD Screening for colon cancer (Primary Dx); Abnormal EKG; Primary hypertension; Health care maintenance; COPD exacerbation ([facility]); History of tobacco use; Plantar fasciitis; Annual physical exam; Mild intermittent asthma without complication 06/14/2025 Travel 06/13/2025 Travel 06/13/2025 Telephone [facility] [address] [place] [address] Clarita Fountain MD Chart Prep 05/21/2025 Refill [facility] [address] [place] [address] Clarita Fountain MD Annual physical exam 04/20/2025 Telephone [facility] [address] [place] [address] Clarita Fountain MD Nurse Triage 04/13/2025 Telephone [facility] [address] [place] [address] Ashley Ferro MA normal moira 04/12/2025 Results Follow-Up [facility] [address] [place] [address] Clarita Fountain MD BI Mammogram Screening Tomosynthesis Bilateral, CBC, Hemoglobin A1c, Additional followed-up results: 12 from Last 3 Months Immunizations Immunization Administration [...] housing situation today? I have belem maverick 02/11/[address] you li [...] COVID-19 Vaccine ( - 2023-2 5 season) 2025 Influenza Vaccine (#1) 2025 07/15/2008 Alcohol/Substance Use [...] 9:40 AM EDT) Creatinine, Urine 53.93 mg/dL [facility] Microalbumin Urine 8.0 mg/L [facility] Microalbum Creatinine Ratio Ur 14.8 <30 ug/mg cr [facility] Comment:Albumin/Creatinine R atio Reference Ranges: Normal: < 30 ug/mg creatinine Microalbuminuria: 30 - 300 ug/mg creatinineClinical Albuminuria: > 300 ug/mg creatinine Urine (Urine, Random) 06/14/2025 9:40 AM EDT 06/14/2025 4:59 PM EDT us Clarita Magana MD LAB URINE ORDERAB LES Final Result Performing Organization Address City/[facility] Co de Phone Number [facility] [address] [place] [phone] * Syphilis Screen (05/24/2025 10:31 AM EDT) Syphilis Screen Nonreactive Nonreactive [facility] Blood 05/24/2025 10:3 1 AM EDT 05/24/2025 10:31 AM EDT Clarita Magana MD LAB BLOOD ORDERAB LES Final Result Performing Organization Address City/[facility]/ZIP Co de Phone Number [facility] [address] [place] [address] [phone] * Vitamin D, 25-Hydroxy, Total, Immunoassay (05/24/2025 10:31 AM EDT) Vitamin D 25-OH Total 58.7 >30 ng/mL [facility] Comment: Health Based Reference Values*< 20 ng/mL Hgzttoxjd98-02 ng/mL Insufficient> 30 ng/mL Sufficient*Teresa CHAN. N [...] ORDERAB LES Final Result Performing Organization Address [facility]/ZIP Co de Phone Number [facility] [address] [place] [address] [phone] * Vitamin B12 (Cobalamin) and Folate Panel, Serum (05/24/2025 10:31 AM EDT) Vitamin B12 629 200 - 900 pg/mL [facility] Comment:NORMAL 200-900 PG/ML INDETERMINATE 160-199 PG/ML DEFICIENT < 160 PG/ML Folate 14.6 > or = 4.0 ng/mL [facility] Comment:Reference Values:> o r = 4.0 ng/mL< 4.0 ng/mL suggests folate deficiency Methotrexate, aminopterin and folinic acid(leucovorin) are chemotherapeutic agents whose molecularstructures are similar to folate; therefore, the Architectfolate assay cannot be used for patients using these drugs. Blood 05/24/2025 10:3 1 AM EDT 05/24/2025 10:31 AM EDT Clarita Magana MD LAB BLOOD ORDERAB LES Final Result Performing Organization Address [facility]/ZIP Co de Phone Number [facility] [address] [place] [phone] * TSH with Reflex to Free T4 (05/24/2025 10:31 AM EDT) TSH reflex Free T4 1.38 0.32 - 4.0 uIU/mL [facility] Blood 05/24/2025 10:3 1 AM EDT 05/24/2025 10:31 AM EDT us Clarita Magana MD LAB BLOOD ORDERAB LES Final Result Performing Organization Address [facility] Co de Phone Number [facility] [address] [place] [phone] * Strongyloides Antibody (IgG) (05/24/2025 10:31 AM EDT) Strongyloides Antibody IgG NEGATIVE [facility] Comment:REFERENCE RANGE: NEG ATIVEStrongyloides stercoralis is a parasiticNematode found in tropical and subtropicalregions. Because of low larval densities infeces, stool examination is a relativelyinsensitive diagnostic test; antibody detectionoffers increased sensitivity. Patients withlatent infections who are immunosuppressed orreceiving immunosuppressive therapy are at riskof life- threatening hyperinfection. Significantcrossreactivity may be observed in otherhelminth infections.THIS TEST WAS PERFORMED AT:[id number] [place] [address]PNBEIENRIQUE MARTIN MD,PHD,DENIA Blood Venous blood specimen / Unknown 05/24/2025 10:31 AM EDT 05/24/2025 10:31 AM EDT Clarita Magana MD LAB BLOOD ORDERAB LES Final Result Performing Organization Address City/[facility]/ZIP Co de Phone Number [facility] [address] [place] [phone] * IgE Antibody (Anti-IgE IgG) (05/24/2025 10:31 AM EDT) Pathologist [facility] IgE Antibody (Anti-IgE IgG) 54 <168 ng/mL [facility] Comment:This test was develo ped and its analytical performancecharacteristics have been determined by [facility].It has not been cleared or approved by the FDA. This assayhas been validated pursuant to the CLIA regulations and isused for clinical purposes.THIS TEST WAS PERFORMED AT:[id number] [place] [address]ALPBGENRIQUE MARTIN MD,PHD,DENIA Blood Venous blood specimen / Unknown 05/24/2025 10:31 AM EDT 05/24/2025 10:31 AM EDT us Clarita Magana MD LAB BLOOD ORDERAB LES Final Result Performing Organization Address City/[facility] Co de Phone Number [facility] [address] [place] [phone] * Hepatitis C Antibody with Reflex to HCV, RNA, Quantitative, Real-Time PCR (05/24/2025 10:31 AM EDT) Hepatitis C Antibody Nonreactive Nonreactive [facility] Comment:Antibodies to HCV no t detected; does not exclude early acuteHCV infection. Blood Venous blood specimen / Unknown 05/24/2025 10:31 AM EDT 05/24/2025 10:31 AM EDT us Clarita Magana MD LAB BLOOD ORDERAB LES Final Result Performing Organization Address City/[facility]/ZIP Co de Phone Number [facility] [address] [place] [phone] * Iron And Total Iron Binding Capacity (05/24/2025 10:31 AM EDT) Iron 95 30 - 160 mcg/dL [facility] Total Iron Binding Capacity 305 228 - 428 mcg/dL [facility] Percent Iron Saturation 31 15 - 50 % [facility] Unsaturated Iron Binding 210 ug/dL [facility] Blood Venous blood specimen / Unknown 05/24/2025 10:31 AM EDT 05/24/2025 10:31 AM EDT us Clarita Magana MD LAB BLOOD ORDERAB LES Final Result Performing Organization Address [facility]/ZIP Co de Phone Number [facility] [address] [place] [phone] * Hepatitis B surface antigen, EIA (05/24/2025 10:31 AM EDT) Hepatitis B Surface Ag Negative Negative [facility] Blood Venous blood specimen / Unknown 05/24/2025 10:31 AM EDT 05/24/2025 10:31 AM EDT us Clarita Magana MD LAB BLOOD ORDERAB LES Final Result Performing Organization Address City/[facility]/ZIP Co de Phone Number [facility] [address] [place] [phone] * Hepatitis B Core Antibody, Total (05/24/2025 10:31 AM EDT) Hepatitis B Core Antibody Nonreactive Nonreactive [facility] Blood Venous blood specimen / Unknown 05/24/2025 10:31 AM EDT 05/24/2025 10:31 AM EDT Clarita Magana MD LAB BLOOD ORDERAB LES Final Result Performing Organization Address [facility] Co de Phone Number [facility] [address] [place] [phone] * HIV-1/2 Antigen and Antibodies, Fourth Generation, with Reflexes (05/24/2025 10:31 AM EDT) HIV AB/AG Nonreactive Nonreactive [facility] Comment:HIV-1 p24 Ag and/or HIV-1/HIV-2 Ab not detected.A test result that is nonreactive does not exclude thepossibility of exposure to or infection with HIV-1 and/orHIV-2. Nonreactive results in this assay for individualswith prior exposure to HIV-1 and/or HIV-2 may be due toantigen and antibody levels that are below the limit ofdetection of this assay.The [employer] HIV Ag/Ab Combo assay result andsupplemental assay results should be interpreted inconjunction with the patient's clinical presentation,history and other laboratory results. If the results areinconsistent with clinical evidence, additional testing issuggested to confirm the result. Blood Venous blood specimen / Unknown 05/24/2025 10:31 AM EDT 05/24/2025 10:31 AM EDT us Clarita Magana MD LAB BLOOD ORDERAB LES Final Result Performing Organization Address [facility]/ZIP Co de Phone Number [facility] [address] [place] [phone] * Hepatitis B Surface Antibody, Qualitative (05/24/2025 10:31 AM EDT) ~Hepatitis B Surface Antibody REACTIVE Nonreactive [facility] Comment:REACTIVE: > 11.99 mI U/mL Blood Venous blood specimen / Unknown 05/24/2025 10:31 AM EDT 05/24/2025 10:31 AM EDT us Clarita Magana MD LAB BLOOD ORDERAB LES Final Result Performing Organization Address City/[facility]/ZIP Co de Phone Number [facility] [address] [place] [phone] * (ABNORMAL) CBC (05/24/2025 10:31 AM EDT) White Blood Count 8.0 4.8 - 10.8 X10*3/uL [facility] Red Blood Count 3.73(L) 4.20 - 5.50 X10*6/uL [facility] Hemoglobin 11.9(L) 12.0 - 16.0 g/dl [facility] Hematocrit 36.6(L) 37.0 - 47.0 % [facility] Mean Corpuscular Volume 98.1(H) 80.0 - 98.0 fL [facility] Mean Corpuscular Hemoglobin 31.9 27.0 - 33.0 pg [facility] Mean Corpuscular HGB Conc 32.5 31.0 - 35.0 g/dl [facility] Red Cell Distribution Width 12.4 11.0 - 16.0 % [facility] Platelet Count 323 160 - 400 X10*3/uL [facility] Mean Platelet Volume 9.3(L) 9.4 - 12.3 fL [facility] NRBC Pct Auto 0.0 0.0 - 0.2 /100WBC [facility] NRBC Abs Auto 0.000 0.0 - 0.012 X10*3/uL [facility] Blood Venous blood specimen / Unknown 05/24/2025 10:31 AM EDT 05/24/2025 10:31 AM EDT us Clarita Magana MD LAB BLOOD ORDERAB LES Final Result [facility] [address] [place] [phone] * Hemoglobin A1c (05/24/2025 10:31 AM EDT) Hemoglobin A1c 5.5 <6.0 % [facility] Comment:Hemoglobin A1C Refer ence Range Adults: 4.8 - 6.0 % Non diabetic: < 6.0 % Goal: < 7.0 %Additional Action Suggested: > 8.0 %Note: Hemoglobin A1c results are invalid for patients with abnormal amounts of HbF. Blood transfusions may impact the HbA1c concentration in the patient sample. Estimated Average Glucose 111 mg/dL [facility] Comment:eAG = Estimated ave rage glucose which is %A1C expressed asaverage glucose, using the formula of the O9N-EjpyzgmYvirjxv Glucose study (ADAG), Diabetes Care, Vol.31,#8,May. 2007 Blood Venous blood specimen / Unknown 05/24/2025 10:31 AM EDT 05/24/2025 10:31 AM EDT us Clarita Magana MD LAB BLOOD ORDERAB LES Final Result Performing Organization Address City/[facility]/ZIP Co de Phone Number [facility] [address] [place] [phone] * Ferritin (05/24/2025 10:31 AM EDT) Ferritin 20 10 - 250 ng/mL [facility] Blood Venous blood specimen / Unknown 05/24/2025 10:31 AM EDT 05/24/2025 10:31 AM EDT us Clarita Magana MD LAB BLOOD ORDERAB LES Final Result Performing Organization Address [facility] Co de Phone Number [facility] [address] [place] [phone] * (ABNORMAL) Lipid Panel, Standard (05/24/2025 10:31 AM EDT) Triglycerides 60 <150 mg/dL [facility] Comment:Desirable Triglyceri de: less than 150 mg/dLBorderline High Triglyceride 150-199 mg/dLHigh Triglyceride: 200-499 mg/dLVery High Triglyceride: greater than or equal to 5OO mg/dL Cholesterol 195 <200 mg/dL [facility] Comment:Desirable Cholestero l: less than 200 mg/dLBorderline High Cholesterol: 200-239 mg/dLHigh Cholesterol: greater than 239 mg/dL LDL Cholesterol Calculated 106(H) <100 mg/dL [facility] Comment:Desirable LDL: less than 100 mg/dLNear Optimal/Above Optimal LDL: 110- 129 mg/dLBorderline High LDL: 130-159 mg/dLHigh LDL: 160-189 mg/dLVery High LDL: greater than or equal to 190 mg/dL HDL Cholesterol 77 >40 mg/dL [facility] Comment:Desirable HDL: great er than 40 mg/dL Note: This HDL assay may give artificially low results in patients with liver disease. Blood Venous blood specimen / Unknown 05/24/2025 10:31 AM EDT 05/24/2025 10:31 AM EDT Clarita Magana MD LAB BLOOD ORDERAB LES Final Result [facility] [address] [place] [phone] * (ABNORMAL) Comprehensive Metabolic Panel (05/24/2025 10:31 AM EDT) Pathologist [facility] Sodium 142 135 - 145 mmol/L [facility] Potassium 4.4 3.3 - 5.1 mmol/L [facility] Chloride 110(H) 96 - 108 mmol/L [facility] Carbon Dioxide 23 22 - 29 mmol/L [facility] Anion Gap 13 12 - 20 [facility] Urea Nitrogen (BUN) 20(H) 9 - 16 mg/dL [facility] Creatinine, Serum 0.68 0.5 - 1.4 mg/dL [facility] Estimated Glomerular Filt Rate >60 [facility] Comment:Chronic Kidney Disea se: Estimated GFR < 60 mL/min/1.06p4Jyjesd Kidney Disease: Estimated GFR < 15 mL/min/1.73m2 Glucose 94 60 - 115 mg/dL [facility] Calcium 9.4 8.4 - 10.2 mg/dL [facility] Bilirubin, Total 0.3 0.0 - 1.0 mg/dL [facility] Aspartate Amino Transferase 26 5 - 31 U/L [facility] Alanine Aminotransferase 23 0 - 31 U/L [facility] Total Protein 6.7 6.5 - 8.0 g/dL [facility] Albumin Level 4.3 3.5 - 5.0 g/dL [facility] Alkaline Phosphatase 67 39 - 117 U/L [facility] Blood Venous blood specimen / Unknown 05/24/2025 10:31 AM EDT 05/24/2025 10:31 AM EDT us Clarita Magana MD LAB BLOOD ORDERAB LES Final Result [facility] [address] [place] [phone] * BI Mammogram Screening Tomosynthesis Bilateral (04/05/2025 12:58 PM EDT) Anatomical Region Laterality Modality Breast Bilateral Mammography 04/05/2025 12:5 8 PM EDT Narrative 04/12/2025 5:53 PM EDT [facility] [address] [place] [address] Mammography Report Signed Patient: Anya Eden MR#: [id number] : 1960 Acct:[id number] Age/Sex: 64 / F ADM Date: 04/05/25 Loc: HO.FIGUEROAO Attending Dr: Clarita Magana MD Ordering Physician: Clarita Fountain MD Re sults: 1Negative Date of Service: 04/05/25 Follow Up: 1 Year From Orig inal Mammogram Procedure(s): MM tomosynthesis screening BI Accession Number(s): [id number] cc: Clarita Fountain MD EXAMINATION: MM SCREENING [...] by Kinjal Arambula DO in OV> 04/12/25 1751 DD/ 1258 TD/TT: 04/05/25 1309 Envelope Adjuster: Procedure Note Donotuseinterpreter, Image - 04/12/2025 [facility] [address] [place] [address] Mammography Report Signed Patient: Anya Eden MMR#: [id number] : 1960cct:[id number] Age/Sex: 64 / FADM Date: 04/05/25 Loc: HOMarioMAMMO Attending Dr: Clarita Magana MD Ordering Physician: Clarita Fountain sults: 1Negative Date of Service: 04/05/25Follow Up: 1 Year From Orig inal Mammogram Procedure(s): MM tomosynthesis screening BI Accession Number(s): [id number] cc: Clarita Fountain MD EXAMINATION: MM SCREENING [...] by Kinjal Arambula DO in OV> 04/12/25 1751 DD/ 1258 TD/TT: 04/05/25 1309 Envelope Adjuster: Clarita Magana MD IMG BI PROCEDURES Final Result * HPV mRNA E6/E7 w/Reflex to HPV Genotypes 16, 18/45 (12/08/2023 9:45 AM EST) HPV nRNA E6/E7 Not Detected Not Detected [facility] Comment:Methodology: Transcr iption-Mediated AmplificationThis assay detects E6/E7 viral messenger RNA (mRNA) from 14high-risk HPV types (16,18,31,33,35,39,45,51,52,56,58,59,66,68).Cervical sources are required for HPV testing.If a vaginal source from a patient who has had atotal hysterectomy with removal of cervix wassubmitted, please contact the testing laboratoryfor alternative testing options.For additional information, please refer tohttp://education.[employer]/faq/KJY989a6(This link if provided for information/educational purposes only.)THIS TEST WAS PERFORMED AT:[address] [place] [phone] SUTTON MD HPV mRNA E6/E7 TNP [facility] HPV 16 RNA TNP [facility] HPV 18/45 RNA TNP [facility] 12/08/2023 9:45 AM EST 12/09/2023 8:00 AM EST us Awa Salinas CNM LAB CYTOLOGY ORDERABLES F inal Result [facility] [address] [place] [phone] * Pap Smear (12/08/2023 9:45 AM EST) Swab Cervix uteri structure / Unknown 12/08/2023 9:45 AM EST 12/09/2023 8:00 AM EST Narrative [facility] - 12/23/2023 1:21 PM EST ----- ------- Name: Anya Eden Age/Sex: 63/F : 1960 Unit#: [id number] Attend Dr: AWA SALINAS CNM Re12/08/23 Status: DEP REF Location: [facility] Disch: ----- ------- SPEC : [id number] RECD: 12/09/23 STATUS: NICOLASA BRADY NUM: [id number] ZACHERY: 12/08/[address] [facility] [address]: AWA SALINAS CNM ENTERED: 12/09/23 SP TYPE: Pap Smr OTHR DR: ORDERED: Pap Smear Interpretation Satisfactory for evaluation. Atrophic. Negative for intraepithelial lesion or malignancy. HPV mRNA E6/E7: NOT DETECTED This assay detects E6/E7 viral messenger RNA (mRNA) from 14 high-risk HPV types (16, 18, 31, 33, 35, 39, 45, 51, 52, 56, 58, 59, 66, 68) HPV testing performed by [facility], [place], [place]. See reference laboratory portion of the EMR for entire report. Clinical Information LMP: Postmenopausal Previous PAP test: Unknown date/findings Material Received ThinPrep-Cervical ----- ------- Signed (signature on file) KYUNG Mooney (ASCP) 12/23/23 1321 ----- ------- END OF REPORT Awa Salinas CNM LAB CYTOLOGY ORDERABLES F inal Result [facility] [address] [place] [phone] from Last 3 Months or Most Recently Relevant to Health Maintenance Insurance BCBS PPO Care Teams Sdet Relationship Specialty Start Date End Date Clarita Fountain MD [address] [place] [phone] PCP - General Internal Medicine 11/13/23
--- OUTSIDE RECORDS SUMMARY | 2025-07-12 13:19 | XMS_ITS | Patient Health Record ---
Author Organization [facility] Address [address] [place] [address] Care Team Providers Care Industrial Cleaner Name Role Phone ROSANGELA WOLFENVALENTEDEMETRI Primary Care [...] Problem COPD - Chronic obstructive pulmonary disease (60593375) Chronic obstructive pulmonary disease, unspecified COPD type (J44.9) Active confirmed Problem Arthritis (5703830) Arthritis (M19.90) Active confirmed Problem Alopecia (04295946) Hair loss (L65.9) Active confirmed Problem Asthma (826991228) Asthma (J45.909) Active confirmed Plan Of Treatment [...] Insured Coverage Start Date Coverage End Date [facility] [id number] [facility] GAYE Shukla [phone] [id number] Anya Caballero i Self - patient is the insured Medical (General) History Medical History History ICD Code carpul tunnel heart issues ibs feet issues emphysemia bruise easilly Surgical History Surgery Date(Month/Year) c section x2 2 ft of intestines removed 1 day old
== END 2025-07-12 11:09 | disposition home or self-care (01) ==
PROVIDERS: PCP Student in an Organized Health Care Education/Training Program; Visit Provider Nurse Practitioner Family
DX: J44.9 Chronic obstructive pulmonary disease, unspecified (principal); R06.00 Dyspnea, unspecified; Z91.09 Other allergy status, other than to drugs and biological substances; Z87.891 Personal history of nicotine dependence
CPT/HCPCS: 99204

== ENCOUNTER 2025-07-26 13:03 | Outpatient (REF) | payer BC, SELFPAY ==
--- NOTE | ~2025-07-26 | MM_ITS ---
EXAMINATION: DXA BONE DENSITY AXIAL HISTORY: pt needs osteoporosis screening, tobacco smoker, low weight TECHNIQUE: [employer] Dual energy absorptiometry (DEXA) of the lumbar spine, total left hip, and femoral neck was performed. COMPARISON: There are no prior studies for comparison. FINDINGS: The bone mineral density of the lumbar spine is 1.017 g/cm2, corresponding to a T-score of -1.2, and a Z-score of 0.7. This is indicative of osteopenia. The bone mineral density of the left total hip is 0.685 g/cm2, corresponding to a T-score of -2.6, and a Z-score of -11. This is indicative of osteoporosis. The bone mineral density of the left femoral neck is 0.701 g/cm2, corresponding to a T-score of -2.4, and a Z-score of -0.7. This is indicative of osteopenia. FRACTURE RISK: The FRAX index suggests a risk of major osteoporotic fracture of 113%, and of hip fracture 2.3%. MM/XR DEXA axial skeleton IMPRESSION: Based on bone mineral density, and according to World Health Organization (WHO) criteria, the diagnosis is consistent with osteoporosis. Statistically, 68% of repeat scans fall within 1 SD (+/- 0.010 g/cm2 for AP spine L1-L4) and 1 SD (+/- 0.012 g/cm2 for femur total) FRAX is a trademark of the [employer] [place] Metabolic Bone Disease, a World Health Organization (WHO) Collaborating Center. Electronically signed by: Jeffrey Alicea MD 07/26/2025 01:38 PM EDT
--- OUTSIDE RECORDS SUMMARY | 2025-07-26 14:14 | XMS_ITS | Patient Health Record ---
Author Organization [facility] Address [address] [place] [address] Care Team Providers Care Foundry Metallurgist Name Role Phone ROSANGELA WOLFENVALENTEDEMETRI Primary Care [...] Problem COPD - Chronic obstructive pulmonary disease (60800355) Chronic obstructive pulmonary disease, unspecified COPD type (J44.9) Active confirmed Problem Arthritis (7248396) Arthritis (M19.90) Active confirmed Problem Alopecia (21400224) Hair loss (L65.9) Active confirmed Problem Asthma (695440531) Asthma (J45.909) Active confirmed Plan Of Treatment [...] Insured Coverage Start Date Coverage End Date [facility] [id number] [facility] GAYE Shukla [phone] [id number] Anya Caballero i Self - patient is the insured Medical (General) History Medical History History ICD Code carpul tunnel heart issues ibs feet issues emphysemia bruise easilly Surgical History Surgery Date(Month/Year) c section x2 2 ft of intestines removed 1 day old
--- OUTSIDE RECORDS SUMMARY | 2025-07-26 14:14 | XMS_ITS | Encounter Summary ---
Author Organization [employer] Address [address] [place] [address] Care Team Providers Care Coke Drawer Name Role Phone Clarita Fountain MD Primary Care Pro vider Encounter Details Date Type Department Care Team (Late st Contact Info) Description 07/26/2025 Orders Only [facility] [address] [place], [place] [phone] Clarita Fountain MD [address] [place], [place] [phone] Social History Tobacco Use Types Packs/Day Years [...] documented as of this encounter Care Teams Coke Drawer Relationship Specialty Start Date End Date Clarita Fountain MD [address] [place] [phone] PCP - General Internal Medicine 11/13/23 documented as of this encounter
--- OUTSIDE RECORDS SUMMARY | 2025-07-26 14:14 | XMS_ITS | Encounter Summary ---
Author Organization [employer] Address [address] [facility] [address] [place] [address] Care Team Providers Care Soil Conservation Aide Name Role Phone Clarita Fountain MD Primary Care Pro vider Encounter Details Date Type Department Care Team (Late st Contact Info) Description 07/26/2025 Results Follow-Up [facility] [address] [place], [place] [phone] Clarita Fountain MD [address] [place] [address] BD DEXA Axial Social History Tobacco Use Types Packs/Day Years [...] AM EST documented as of this encounter Miscellaneous Notes * Result Encounter Note - Clarita Magana MD - 07/26/2025 2:05 PM EDT -please inform pt her DEXA scan is showing osteoporosis ( so has weaker bones with risk for fractures ) I order alendronate to take 1 tab a week ,with a glass full of water and advise to not lay down forat least couple of hours from taking med to avoid esophagitis ,explain plan for this med is to takefor next 5 years Also I prescribed ca/vit D to take 1 tab twice a day Advised fo healthy diet rich in calcium ,vegetables and to walk daily Thanks documented in this encounter Plan of Treatment Not on file documented as of this encounter Visit Diagnoses Not on filedocumented in this encounter Additional Health Concerns Assessment Noted Time PHQ-9 Depression Total Score: 3 02/12/20 25 11:22 AM EDT documented as of this encounter Care Teams Soil Conservation Aide Relationship Specialty Start Date End Date Clarita Fountain MD [address] [place] [id number] PCP - General Internal Medicine 11/13/23 documented as of this encounter
--- OUTSIDE RECORDS SUMMARY | 2025-07-26 14:14 | XMS_ITS | Encounter Summary ---
Author Organization [employer] Address [address] [facility] [address] [place] [address] Care Team Providers Care Pump Tender Name Role Phone Clarita Fountain MD Primary Care Pro vider Reason for Visit * Reason Comments Med Refill Encounter Details Date Type Department Care Team ([facility] st Contact Info) Description 09/07/2024 Refill [facility]INE [address] [place], [place] [phone] Clarita Fountain MD [address] [place], [place] [phone] Social History Tobacco Use Types Packs/Day Years [...] on filedocumented in this encounter Care Teams Pump Tender Relationship Specialty Start Date End Date Clarita Fountain MD [address] [place] [id number] PCP - General Internal Medicine 11/13/23 documented as of this encounter
--- OUTSIDE RECORDS SUMMARY | 2025-07-26 14:15 | XMS_ITS | Patient Health Record ---
Author Organization [facility] kendall Handley Address [address] [place] [address] Care Team Providers Care Corporate Buyer Name Role Phone Clarita Fountain Primary Care Provider Levi Hobbs Unavailable [phone] Allergies Allergen (clinical drug ingredient) Drug/Non Drug [...] Notes Problem Plantar fasciitis of right foot (413619154326788 01) Plantar fasciitis of right foot (M72.2) Active confirmed Problem Interstitial myositis (10773255) Interstitial myositis of right foot (M60.171) Active confirmed Vital Signs Blood pressure diastolic 75 mm Hg 04/12/2025 Height 5ft 3in in 04/12/2025 Blood pressure systolic 120 mm Hg 04/12/2025 Weight 112 lbs 04/12/2025 BMI 19.84 kg/m2 04/12/2025 Encounters Encounter Location Date Provider [facility] [address] [place] [address] 04/12/2025 Leviteresa GeorgesNicholas Pain in right foot M79.671 ; Plantar fasciitis of right foot M72.2 ; Calcaneal spur, right foot M77.31 ; Interstitial myositis of right foot M60.171 and Bursitis of right foot M77.51 [facility] [address] [place] [phone] 04/21/2025 Levi Peterson Assessments Encounter Date Diagnosis [...] Insured Coverage Start Date Coverage End Date [facility] All Others [id number] [place] [address] [phone] [id number] Anya Nunez Self - patient is the insured Medical (General) History Medical History History ICD Code Anxiety asthma Cataracts Diverticulosis Lung disease Measles Chicken pox COPD Surgical History Surgery Date(Month/Year) 1985, 1997
--- OUTSIDE RECORDS SUMMARY | 2025-07-26 14:15 | XMS_ITS | Encounter Summary ---
Author Organization [employer] Address [address] [facility] 7t [place] [address] Care Team Providers Care Brand Ambassadors Promotional Sales Name Role Phone Clarita Fountain MD Primary Care Pro vider Reason for Visit * Reason Comments Med Refill Encounter Details Date Type Department Care Team ([facility] st Contact Info) Description 05/21/2025 Refill [facility] [address] [place], [place] [phone] Clarita Fountain MD [address] [place], [place] [phone] Annual physical exam Social History Tobacco Use [...] documented as of this encounter Care Teams Brand Ambassadors Promotional Sales Relationship Specialty Start Date End Date Clarita Fountain MD [address] [place], [place] [phone] PCP - General Internal Medicine 11/13/23 documented as of this encounter
--- OUTSIDE RECORDS SUMMARY | 2025-07-26 14:15 | XMS_ITS | Clinical Summary ---
Author Organization [employer] Address [address] [place] [address] Care Team Providers Care Technology Director Name Role Phone Clarita Fountain MD Primary Care Pro vider Allergies No known active allergies Medications ibuprofen 200 MG tablet Take by mouth. Activ e Blood Pressure kit 1 Device Once per day. 1 kit 4 Active amLODIPine (Norvasc) 5 MG tabletIndication s:Annual physical exam Take 1 tablet (5 mg) by mouth Once per day. 90 tablet 1 5 026 Active albuterol 108 (90 Base) MCG/ACT inhalerIndicatio ns:Mild intermittent asthma without complication Inhale 2 puffs every 6 (six) hours if needed for wheezing. 18 g 5 5 026 Active Multiple Vitamin (multivitamin) tablet Take 1 tablet by mouth Once per day. 90 tablet 1 5 Active ipratropium-albu terol (Duo-Neb) 0.5-2.5 mg/3 mL nebulizer solution TAKE 3 ML BY NEBULIZATION ROUTE EVERY 6 HOURS 180 mL 2 5 Active Trelegy Ellipta 100-62.5-25 MCG/ACT aerosol powder Take 1 puff by mouth in the morning. 3 each 5 5 Active alendronate (Fosamax) 70 MG tablet Take 1 tablet (70 mg) by mouth every 7 (seven) days. Take in the morning with a full glass of water, on an empty stomach, and do not take anything else by mouth or lie down for the next 30 min. 4 tablet 5 5 026 Active Calcium Carb-Cholecalcif ananda (Calcium 600+D) 600-20 MG-MCG tablet Take 1 tablet by mouth at noon and 1 tablet in the evening. 180 tablet 1 5 026 Active Active Problems Problem Noted Date Diagnosed Date Plantar fasciitis 06/14/2025 Hypertension 02/11/2025 Other constipation 02/11/2025 Abnormal EKG 02/11/2025 Hearing loss 02/11/2025 Depression 02/11/2025 Weight loss 02/11/2025 Generalized osteoarthritis of hand 11/15/2023 History of tobacco use 11/15/2023 COPD exacerbation (CMS/HCC) 11/15/2023 Health care maintenance 11/15/2023 Encounters Date Type Department Care Team Description 07/26/2025 Orders Only [facility] [address] [place] [address] Clarita Fountain MD 07/26/2025 Results Follow-Up [facility] [address] [place] [address] Clarita Fountain MD BD DEXA Axial 06/14/2025 9:00 AM EDT Office Visit [facility] [address] [place] [address] Clarita Fountain MD Screening for colon cancer (Primary Dx); Abnormal EKG; Primary hypertension; Health care maintenance; COPD exacerbation (CMS/HCC); History of tobacco use; Plantar fasciitis; Annual physical exam; Mild intermittent asthma without complication 06/14/2025 Travel 06/13/2025 Travel 06/13/2025 Telephone [facility] [address] [place] [address] Clarita Foutnain MD Chart Prep 05/21/2025 Refill [facility] [address] [place] [address] Clarita Fountain MD Annual physical exam from [...] 9:02 AM EDT Respiratory Rate 20 06/14/2025 9:0 2 AM EDT Oxygen Saturation 98% 04/08/2025 9:13 [...] Procedure Name Priority Date/Time Associated Diagnosis Comments BD DEXA AXIAL Routine 07/26/2025 1:34 PM EDT Postmenopausal RAST ALLERGEN (NON ORDERABLE) Routine 07/12/2025 12:30 PM EDT IMMUNOGLOBULIN E Routine 07/12/2025 12:3 0 PM EDT RESPIRATORY ALLERGY PROFILE REGION I Routine 07/12/2025 12:30 PM EDT IMMUNOGLOBULIN E Routine 07/12/2025 12:3 0 PM EDT CBC WITH AUTO DIFFERENTIAL Routine 07/12/2025 12:30 PM EDT ALBUMIN, RANDOM URINE W/CREATININE Routine 06/14/2025 9:40 [...] Recently Relevant to Health Maintenance Results * BD DEXA Axial (07/26/2025 1:34 PM EDT) Anatomical Region Laterality Modality Body Radiographic Blanca ging 07/26/2025 1:34 PM EDT Narrative 07/26/2025 1:41 PM EDT [facility] [address] [place] [address] Mammography Report Signed Patient: Anya Eden MR#: [id number] : 1960 Acct:[id number] Age/Sex: 64 / F ADM Date: 07/26/25 Loc: T[facility] Attending Dr: Clarita Magana MD Ordering Physician: Clarita Fountain MD Re sults: Date of Service: 07/26/25 Follow Up: Procedure(s): XR DEXA axial skeleton Accession Number(s): [id number] cc: Clarita Fountain MD Reason For Exam: pt needs osteoporis screening , tobacco smoker ,low weight EXAMINATION: DXA BONE DENSITY AXIAL HISTORY: pt needs osteoporosis screening, tobacco smoker, low weight TECHNIQUE: [employer] Dual energy absorptiometry (DEXA) of the lumbar spine, total left hip, and femoral neck was performed. COMPARISON: There are no prior studies for comparison. FINDINGS: The bone mineral density of the lumbar spine is 1.017 g/cm2, corresponding to a T-score of -1.2, and a Z-score of 0.7. This is indicative of osteopenia. The bone mineral density of the left total hip is 0.685 g/cm2, corresponding to a T-score of -2.6, and a Z-score of -11. This is indicative of osteoporosis. The bone mineral density of the left femoral neck is 0.701 g/cm2, corresponding to a T-score of -2.4, and a Z-score of -0.7. This is indicative of osteopenia. FRACTURE RISK: The FRAX index suggests a risk of major osteoporotic fracture of 113%, and of hip fracture 2.3%. MM/XR DEXA axial skeleton IMPRESSION: Based on bone mineral density, and according to World Health Organization (WHO) criteria, the diagnosis is consistent with osteoporosis. Statistically, 68% of repeat scans fall within 1 SD (+/- 0.010 g/cm2 for AP spine L1-L4) and 1 SD (+/- 0.012 g/cm2 for femur total) FRAX is a trademark of the [employer]'s [place] for Metabolic Bone Disease, a World Health Organization (WHO) Collaborating Center. Electronically signed by: Jeffrey Alicea MD 07/26/2025 01:38 PM EDT RP Dictated By: Jeffrey Alicea MD Signed By: <Electronically signed by Jeffrey Alicea MD in OV> 07/26/25 1338 DD/ 1334 TD/TT: 07/26/25 1334 Lodging House Keeper: Procedure Note Donotuseinterpreter, Image - 07/26/2025 [facility] [address] [place] [address] Mammography Report Signed Patient: Anya Eden [facility]#: [id number] : 1960cct:[id number] Age/Sex: 64 / FADM Date: 07/26/25 Loc: TREY Attending Dr: Clarita Magana MD Ordering Physician: Clarita Fountaints: Date of Service: 07/26/25Follow Up: Procedure(s): XR DEXA axial skeleton Accession Number(s): [id number] cc: Clarita Fountain MD Reason For Exam: pt needs osteoporis screening , tobacco smoker ,lowweight EXAMINATION: DXA BONE DENSITY AXIAL HISTORY: pt needs osteoporosis screening, tobacco smoker, low weight TECHNIQUE: [employer] Dual energy absorptiometry (DEXA) of the lumbar spine, total left hip, and femoral neck was performed. COMPARISON: There are no prior studies for comparison. FINDINGS: The bone mineral density of the lumbar spine is 1.017 g/cm2, corresponding to a T-score of -1.2, and a Z-score of 0.7. This is indicative of osteopenia. The bone mineral density of the left total hip is 0.685 g/cm2, corresponding to a T-score of -2.6, and a Z-score of -11. This is indicative of osteoporosis. The bone mineral density of the left femoral neck is 0.701 g/cm2, corresponding to a T-score of -2.4, and a Z-score of -0.7. This is indicative of osteopenia. FRACTURE RISK: The FRAX index suggests a risk of major osteoporotic fracture of 113%, and of hip fracture 2.3%. MM/XR DEXA axial skeleton IMPRESSION: Based on bone mineral density, and according to World Health Organization (WHO) criteria, the diagnosis is consistent with osteoporosis. Statistically, 68% of repeat scans fall within 1 SD (+/- 0.010 g/cm2 for AP spine L1-L4) and 1 SD (+/- 0.012 g/cm2 for femur total) FRAX is a trademark of the [employer]'s [place] for Metabolic Bone Disease, a World Health Organization (WHO) Collaborating Center. Electronically signed by: Jeffrey Alicea MD 07/26/2025 01:38 PM EDT Dictated By: Jeffrey Alicea MD Signed By: <Electronically signed by Jeffrey Alicea MD in OV> 07/26/25 1338 DD/ 1334 TD/TT: 07/26/25 133 Lodging House Keeper: us Clarita Magana MD IMG DXA PROCEDURE S Final Result * Rast Allergen (07/12/2025 12:30 PM EDT) Rast Allergen SEE NOTE [facility] Comment:SEE SCANNED REPORT I N EMR 07/12/2025 12:3 0 PM EDT 07/18/2025 12:31 PM EDT Narrative [facility] - 07/18/2025 12:32 PM EDT CAT DANDER REFLEX us Generic External Data Provider HISTORICAL/NON OR DERABLE LABS Final Result [facility] [address] [place] [address] [phone] * (ABNORMAL) Respiratory Allergy Profile Region I (07/12/2025 12:30 PM EDT) Pathologist [facility] Mouse Urine Proteins (E72) IgE <0.10 kU/L [facility] Class 0 [facility] Cockroach (I6) IgE <0.10 kU/L [facility] Class 0 [facility] Dermatophagoides farinae (D2) IgE <0.10 kU/L [facility] Class 0 [facility] Cat Dander (E1) IgE 0.47(A) kU/L [facility] Class 1 [facility] Comment:THIS TEST WAS PERFOR MED AT:[employer] [address] [id number] SUTTON MD Dog Dander (E5) IgE <0.10 kU/L [facility] Class 0 [facility] Comment:THIS TEST WAS PERFOR MED AT:[email or web address] [place] [phone] SUTTON MD Rashel Grass (G6) IgE <0.10 kU/L [facility] Class 0 [facility] Cladosporium herbarum (M2) IgE <0.10 kU/L [facility] Class 0 [facility] Aspergillus Fumigatis (M3) IgE 0.51(A) kU/L [facility] Class 1 [facility] Alternaria alternata (M6) IgE 0.20(A) kU/L [facility] Class 0/1 [facility] Comment:THIS TEST WAS PERFOR MED AT:[email or web address] [place] [id number] June MEZA [place] (t6) IgE <0.10 kU/L [facility] Class 0 [facility] [place] (T7) IgE <0.10 kU/L [facility] Class 0 [facility] Rosalia Tree (T10) IgE <0.10 kU/L [facility] Class 0 [facility] [place] (T11) IgE <0.10 kU/L [facility] Class 0 [facility] [place] (T14) IgE <0.10 kU/L [facility] Class 0 [facility] White [place]onzo (t15) IgE <0.10 kU/L [facility] Class 0 [facility] [place] (T70) IgE <0.10 kU/L [facility] Class 0 [facility] Common Ragweed (Short) (W1) IgE <0.10 kU/L [facility] Class 0 [facility] Mugwort (w6) IgE <0.10 kU/L [facility] Class 0 [facility] Dermatophagoides pteronyssinus (D1) IgE <0.10 kU/L [facility] Class 0 [facility] Bermuda Grass (g2) IgE <0.10 kU/L [facility] Class 0 [facility] Penicillium Notatum (M1) IgE <0.10 kU/L [facility] Class 0 [facility] Birch (T3) IgE <0.10 kU/L [facility] Class 0 [facility] Elm (t8) IgE <0.10 kU/L [facility] Class 0 [facility] Maple (Pine) (T1) IgE <0.10 kU/L [facility] Class 0 [facility] Rough Pigweed (W14) IgE <0.10 kU/L [facility] Class 0 [facility] Sheep [place] (W18) IgE <0.10 kU/L [facility] Class 0 [facility] Allergen Comment See Below [facility] Comment: Specific Level of AllergenIGE Class kU/L Specific IGE Antibody ----- --------- 0 <0.10 Absent/Undetectable 0/1 0.10-0.34 Very Low Level 1 0.35-0.69 Low Level 2 0.70-3.49 Moderate Level 3 3.50-17.4 High Level 4 17.5-49.9 Very High Level 5 50-100 Very High Level 6 >100 Very High LevelThe clinical relevance of allergen results of0.10-0.34 kU/L are undetermined and intended forspecialist use.Allergens denoted with a include results usingone or more analyte specific reagents. In thosecases, the test was developed and its analyticalperformance characteristics have been determined [email or web address]. It has not been cleared or approvedby the U.S. Food and Drug Administration. This assayhas been validated pursuant to the CLIA regulationsand is used for clinical purposes.THIS TEST WAS PERFORMED AT:[email or web address] [place] [id number] SUTTON MD 07/12/2025 12:3 0 PM EDT 07/12/2025 2:19 PM EDT us Generic External Data Provider LAB BLOOD ORDERAB LES Final Result [facility] [address] [place] [address] [phone] * (ABNORMAL) CBC auto differential (07/12/2025 12:30 PM EDT) White Blood Count 5.3 4.8 - 10.8 X10*3/uL [facility] Red Blood Count 4.07(L) 4.20 - 5.50 X10*6/uL [facility] Hemoglobin 12.9 12.0 - 16.0 g/dl [facility] Hematocrit 40.0 37.0 - 47.0 % [facility] Mean Corpuscular Volume 98.3(H) 80.0 - 98.0 fL [facility] Mean Corpuscular Hemoglobin 31.7 27.0 - 33.0 pg [facility] Mean Corpuscular HGB Conc 32.3 31.0 - 35.0 g/dl [facility] Red Cell Distribution Width 12.1 11.0 - 16.0 % [facility] Platelet Count 348 160 - 400 X10*3/uL [facility] Mean Platelet Volume 9.6 9.4 - 12.3 fL [facility] Neutrophils Percent Auto 58.1 45 - 73 % [facility] Imm Gran Pct Auto 0.4 0.0 - 0.4 % [facility] Lymphocytes Percent Auto 26.1 20 - 40 % [facility] Monocytes Percent Auto 7.8 2 - 11 % [facility] Eosinophils Percent Auto 6.5(H) 0 - 4 % [facility] Basophils Percent Auto 1.1 0 - 2 % [facility] NRBC Pct Auto 0.0 0.0 - 0.2 /100WBC [facility] Neutrophils Absolute Auto 3.1 2.0 - 8.3 x10*3/uL [facility] Imm Gran Abs Auto 0.02 0.00 - 0.03 X10*3/uL [facility] Lymphocytes Absolute Auto 1.4 1.2 - 4.9 X10*3/uL [facility] Monocytes Absolute Auto 0.4 0.1 - 1.2 X10*3/uL [facility] Eosinophils Absolute Auto 0.3 0.0 - 0.4 X10*3/uL [facility] Basophils Absolute Auto 0.1 0.0 - 0.2 X10*3/uL [facility] NRBC Abs Auto 0.000 0.0 - 0.012 X10*3/uL [facility] 07/12/2025 12:3 0 PM EDT 07/12/2025 2:08 PM EDT us Generic External Data Provider LAB BLOOD ORDERAB LES Final Result Performing Organization Address [facility] Co de Phone Number [facility] [address] [place] [phone] * Immunoglobulin E (07/12/2025 12:30 PM EDT) Only the most recent of2 resultswithin the time period is included. Immunoglobulin E 25 <MX=911 kU/L [facility] Comment:THIS TEST WAS PERFOR MED AT:[email or web address] [place] [id number] SUTTON MD 07/12/2025 12:3 0 PM EDT 07/12/2025 2:19 PM EDT us Generic External Data Provider LAB BLOOD ORDERAB LES Final Result Performing Organization Address [facility] Co de Phone Number [facility] [address] [place] [phone] * Albumin, Random Urine W/Creatinine (06/14/2025 9:40 AM EDT) Creatinine, Urine 53.93 mg/dL [facility] Microalbumin Urine 8.0 mg/L [facility] Microalbum Creatinine Ratio Ur 14.8 <30 ug/mg cr [facility] Comment:Albumin/Creatinine R atio Reference Ranges: Normal: < 30 ug/mg creatinine Microalbuminuria: 30 - 300 ug/mg creatinineClinical Albuminuria: > 300 ug/mg creatinine Urine (Urine, Random) 06/14/2025 9:40 AM EDT 06/14/2025 4:59 PM EDT us Clarita Magana MD LAB URINE ORDERAB LES Final Result Performing Organization Address [facility] Co de Phone Number [facility] [address] [place] [phone] * Syphilis Screen (05/24/2025 10:31 AM EDT) Syphilis Screen Nonreactive Nonreactive [facility] Blood 05/24/2025 10:3 1 AM EDT 05/24/2025 10:31 AM EDT Clarita Magana MD LAB BLOOD ORDERAB LES Final Result [facility] [address] [place] [address] [phone] * Vitamin D, 25-Hydroxy, Total, Immunoassay (05/24/2025 10:31 AM EDT) Vitamin D 25-OH Total 58.7 >30 ng/mL [facility] Comment: Health Based Reference Values*< 20 ng/mL [id number] ng/mL Insufficient> 30 ng/mL Sufficient*Teresa CHAN. N [...] ORDERAB LES Final Result Performing Organization Address City/[facility]/ZIP Co de Phone Number [facility] [address] [place] [phone] * Vitamin B12 (Cobalamin) and Folate Panel, Serum (05/24/2025 10:31 AM EDT) Vitamin B12 629 200 - 900 pg/mL [facility] Comment:NORMAL 200-900 PG/ML INDETERMINATE 160-199 PG/ML DEFICIENT < 160 PG/ML Folate 14.6 > or = 4.0 ng/mL [facility] Comment:Reference Values:> o r = 4.0 ng/mL< 4.0 ng/mL suggests folate deficiency Methotrexate, aminopterin and folinic acid(leucovorin) are chemotherapeutic agents whose molecularstructures are similar to folate; therefore, the Architectfolate assay cannot be used for patients using these drugs. Blood 05/24/2025 10:3 1 AM EDT 05/24/2025 10:31 AM EDT us Clarita Magana MD LAB BLOOD ORDERAB LES Final Result Performing Organization Address [facility]/ZIP Co de Phone Number [facility] [address] [place] [phone] * TSH with Reflex to Free T4 (05/24/2025 10:31 AM EDT) TSH reflex Free T4 1.38 0.32 - 4.0 uIU/mL [facility] Blood 05/24/2025 10:3 1 AM EDT 05/24/2025 10:31 AM EDT us Clarita Magana MD LAB BLOOD ORDERAB LES Final Result Performing Organization Address City/[facility]/ZIP Co de Phone Number [facility] [address] [place] [phone] * Strongyloides Antibody (IgG) (05/24/2025 10:31 AM EDT) Strongyloides Antibody IgG NEGATIVE [facility] Comment:REFERENCE RANGE: NEG ATIVEStrongyloides stercoralis is a parasiticNematode found in tropical and subtropicalregions. Because of low larval densities infeces, stool examination is a relativelyinsensitive diagnostic test; antibody detectionoffers increased sensitivity. Patients withlatent infections who are immunosuppressed orreceiving immunosuppressive therapy are at riskof life- threatening hyperinfection. Significantcrossreactivity may be observed in otherhelminth infections.THIS TEST WAS PERFORMED AT:[employer] [id number] AMANDA WEAVER [id number] MARTIN MD,PHD,DENIA Blood Venous blood specimen / Unknown 05/24/2025 10:31 AM EDT 05/24/2025 10:31 AM EDT Clarita Magana MD LAB BLOOD ORDERAB LES Final Result [facility] [address] [place] [phone] * IgE Antibody (Anti-IgE IgG) (05/24/2025 10:31 AM EDT) Pathologist [facility] IgE Antibody (Anti-IgE IgG) 54 <168 ng/mL [facility] Comment:This test was develo ped and its analytical performancecharacteristics have been determined by [email or web address].It has not been cleared or approved by the FDA. This assayhas been validated pursuant to the CLIA regulations and isused for clinical purposes.THIS TEST WAS PERFORMED AT:[employer] [id number] AMANDA WEAVER [phone] MARTIN MD,PHD,DENIA Blood Venous blood specimen / Unknown 05/24/2025 10:31 AM EDT 05/24/2025 10:31 AM EDT Clarita Magana MD LAB BLOOD ORDERAB LES Final Result Performing Organization Address [facility]/ZIP Co de Phone Number [facility] [address] [place] [phone] [phone] * Hepatitis C Antibody with Reflex to HCV, RNA, Quantitative, Real-Time PCR (05/24/2025 10:31 AM EDT) Pathologist [facility] Hepatitis C Antibody Nonreactive Nonreactive [facility] Comment:Antibodies to HCV no t detected; does not exclude early acuteHCV infection. Blood Venous blood specimen / Unknown 05/24/2025 10:31 AM EDT 05/24/2025 10:31 AM EDT Clarita Magana MD LAB BLOOD ORDERAB LES Final Result Performing Organization Address [facility] Co de Phone Number [facility] [address] [place] [phone] * Iron And Total Iron Binding Capacity (05/24/2025 10:31 AM EDT) Pathologist [facility] Iron 95 30 - 160 mcg/dL [facility] Total Iron Binding Capacity 305 228 - 428 mcg/dL [facility] Percent Iron Saturation 31 15 - 50 % [facility] Unsaturated Iron Binding 210 ug/dL [facility] Blood Venous blood specimen / Unknown 05/24/2025 10:31 AM EDT 05/24/2025 10:31 AM EDT us Clarita Magana MD LAB BLOOD ORDERAB LES Final Result Performing Organization Address [facility] Co de Phone Number [facility] [address] [place] [phone] * Hepatitis B surface antigen, EIA (05/24/2025 10:31 AM EDT) Pathologist [facility] Hepatitis B Surface Ag Negative Negative [facility] Blood Venous blood specimen / Unknown 05/24/2025 10:31 AM EDT 05/24/2025 10:31 AM EDT Clarita Magana MD LAB BLOOD ORDERAB LES Final Result Performing Organization Address City/[facility]/ZIP Co de Phone Number [facility] [address] [place] [phone] * Hepatitis B Core Antibody, Total (05/24/2025 10:31 AM EDT) Hepatitis B Core Antibody Nonreactive Nonreactive [facility] Blood Venous blood specimen / Unknown 05/24/2025 10:31 AM EDT 05/24/2025 10:31 AM EDT Clarita Magana MD LAB BLOOD ORDERAB LES Final Result Performing Organization Address [facility] Co de Phone Number [facility] [address] [place] [phone] * HIV-1/2 Antigen and Antibodies, Fourth Generation, with Reflexes (05/24/2025 10:31 AM EDT) HIV AB/AG Nonreactive Nonreactive [facility] Comment:HIV-1 p24 Ag and/or HIV-1/HIV-2 Ab not detected.A test result that is nonreactive does not exclude thepossibility of exposure to or infection with HIV-1 and/orHIV-2. Nonreactive results in this assay for individualswith prior exposure to HIV-1 and/or HIV-2 may be due toantigen and antibody levels that are below the limit ofdetection of this assay.The [employer] HIV Ag/Ab Combo assay result andsupplemental assay results should be interpreted inconjunction with the patient's clinical presentation,history and other laboratory results. If the results areinconsistent with clinical evidence, additional testing issuggested to confirm the result. Blood Venous blood specimen / Unknown 05/24/2025 10:31 AM EDT 05/24/2025 10:31 AM EDT Result [facility] Clarita Magana MD LAB BLOOD ORDERAB LES Final Result Performing Organization Address City/[facility]/ZIP Co de Phone Number [facility] [address] [place] [phone] * Hepatitis B Surface Antibody, Qualitative (05/24/2025 10:31 AM EDT) [facility] ~Hepatitis B Surface Antibody REACTIVE Nonreactive [facility] Comment:REACTIVE: > 11.99 mI U/mL Blood Venous blood specimen / Unknown 05/24/2025 10:31 AM EDT 05/24/2025 10:31 AM EDT us Clarita Magana MD LAB BLOOD ORDERAB LES Final Result Performing Organization Address [facility]/ZIP Co de Phone Number [facility] [address] [place] [address] [phone] * (ABNORMAL) CBC (05/24/2025 10:31 AM EDT) [facility] White Blood Count 8.0 4.8 - 10.8 X10*3/uL [facility] Red Blood Count 3.73(L) 4.20 - 5.50 X10*6/uL [facility] Hemoglobin 11.9(L) 12.0 - 16.0 g/dl [facility] Hematocrit 36.6(L) 37.0 - 47.0 % [facility] Mean Corpuscular Volume 98.1(H) 80.0 - 98.0 fL [facility] Mean Corpuscular Hemoglobin 31.9 27.0 - 33.0 pg [facility] Mean Corpuscular HGB Conc 32.5 31.0 - 35.0 g/dl [facility] Red Cell Distribution Width 12.4 11.0 - 16.0 % [facility] Platelet Count 323 160 - 400 X10*3/uL [facility] Mean Platelet Volume 9.3(L) 9.4 - 12.3 fL [facility] NRBC Pct Auto 0.0 0.0 - 0.2 /100WBC [facility] NRBC Abs Auto 0.000 0.0 - 0.012 X10*3/uL [facility] Blood Venous blood specimen / Unknown 05/24/2025 10:31 AM EDT 05/24/2025 10:31 AM EDT Clarita Magana MD LAB BLOOD ORDERAB LES Final Result [facility] [address] [place] [phone] * Hemoglobin A1c (05/24/2025 10:31 AM EDT) Hemoglobin A1c 5.5 <6.0 % [facility] Comment:Hemoglobin A1C Refer ence Range Adults: 4.8 - 6.0 % Non diabetic: < 6.0 % Goal: < 7.0 %Additional Action Suggested: > 8.0 %Note: Hemoglobin A1c results are invalid for patients with abnormal amounts of HbF. Blood transfusions may impact the HbA1c concentration in the patient sample. Estimated Average Glucose 111 mg/dL [facility] Comment:eAG = Estimated ave rage glucose which is %A1C expressed asaverage glucose, using the formula of the C1P-CtcjtycFlhmknz Glucose study (ADAG), Diabetes Care, Vol.31,#8,May. 2007 Blood Venous blood specimen / Unknown 05/24/2025 10:31 AM EDT 05/24/2025 10:31 AM EDT us Clarita Magana MD LAB BLOOD ORDERAB LES Final Result Performing Organization Address City/[facility]/ZIP Co de Phone Number [facility] [address] [place] [phone] * Ferritin (05/24/2025 10:31 AM EDT) Ferritin 20 10 - 250 ng/mL [facility] Blood Venous blood specimen / Unknown 05/24/2025 10:31 AM EDT 05/24/2025 10:31 AM EDT us Clarita Magana MD LAB BLOOD ORDERAB LES Final Result Performing Organization Address [facility] Co de Phone Number [facility] [address] [place] [phone] * (ABNORMAL) Lipid Panel, Standard (05/24/2025 10:31 AM EDT) Triglycerides 60 <150 mg/dL [facility] Comment:Desirable Triglyceri de: less than 150 mg/dLBorderline High Triglyceride 150-199 mg/dLHigh Triglyceride: 200-499 mg/dLVery High Triglyceride: greater than or equal to 5OO mg/dL Cholesterol 195 <200 mg/dL [facility] Comment:Desirable Cholestero l: less than 200 mg/dLBorderline High Cholesterol: 200-239 mg/dLHigh Cholesterol: greater than 239 mg/dL LDL Cholesterol Calculated 106(H) <100 mg/dL [facility] Comment:Desirable LDL: less than 100 mg/dLNear Optimal/Above Optimal LDL: 110- 129 mg/dLBorderline High LDL: 130-159 mg/dLHigh LDL: 160-189 mg/dLVery High LDL: greater than or equal to 190 mg/dL HDL Cholesterol 77 >40 mg/dL [facility] Comment:Desirable HDL: great er than 40 mg/dL Note: This HDL assay may give artificially low results in patients with liver disease. Blood Venous blood specimen / Unknown 05/24/2025 10:31 AM EDT 05/24/2025 10:31 AM EDT us Clarita Magana MD LAB BLOOD ORDERAB LES Final Result Performing Organization Address [facility]/ZIP Co de Phone Number [facility] [address] [place] [phone] * (ABNORMAL) Comprehensive Metabolic Panel (05/24/2025 10:31 AM EDT) Sodium 142 135 - 145 mmol/L [facility] Potassium 4.4 3.3 - 5.1 mmol/L [facility] Chloride 110(H) 96 - 108 mmol/L [facility] Carbon Dioxide 23 22 - 29 mmol/L [facility] Anion Gap 13 12 - 20 [facility] Urea Nitrogen (BUN) 20(H) 9 - 16 mg/dL [facility] Creatinine, Serum 0.68 0.5 - 1.4 mg/dL [facility] Estimated Glomerular Filt Rate >60 [facility] Comment:Chronic Kidney Disea se: Estimated GFR < 60 mL/min/1.33p0Yeisud Kidney Disease: Estimated GFR < 15 mL/min/1.73m2 Glucose 94 60 - 115 mg/dL [facility] Calcium 9.4 8.4 - 10.2 mg/dL [facility] Bilirubin, Total 0.3 0.0 - 1.0 mg/dL [facility] Aspartate Amino Transferase 26 5 - 31 U/L [facility] Alanine Aminotransferase 23 0 - 31 U/L [facility] Total Protein 6.7 6.5 - 8.0 g/dL [facility] Albumin Level 4.3 3.5 - 5.0 g/dL [facility] Alkaline Phosphatase 67 39 - 117 U/L [facility] Blood Venous blood specimen / Unknown 05/24/2025 10:31 AM EDT 05/24/2025 10:31 AM EDT us Clarita Magana MD LAB BLOOD ORDERAB LES Final Result [facility] [address] [facility] [place] [phone] * BI Mammogram Screening Tomosynthesis Bilateral (04/05/2025 12:58 PM EDT) Anatomical Region Laterality Modality Breast Bilateral Mammography 04/05/2025 12:5 8 PM EDT Narrative 04/12/2025 5:53 PM EDT [facility] [address] [place] [address] Dr. Estrella, HOWIE [address] Mammography Report Signed Patient: Anya Eden MR#: [id number] : 1960 Acct:[id number] Age/Sex: 64 / F ADM Date: 04/05/25 Loc: HO.MAMMO Attending Dr: Clarita Magana MD Ordering Physician: Clarita Fountain MD Re sults: 1Negative Date of Service: 04/05/25 Follow Up: 1 Year From Orig inal Mammogram Procedure(s): MM tomosynthesis screening BI Accession Number(s): [id number] cc: Clarita Fountain MD EXAMINATION: MM SCREENING [...] 04/12/25 1751 DD/ 1258 TD/TT: 04/05/25 1309 Lodging House Keeper: Procedure Note Donotuseinterpreter, Image - 04/12/2025 [place] [facility] [address] [place] [address] Mammography Report Signed Patient: Anya Eden MMR#: [id number] : 1960cct:[id number] Age/Sex: 64 / FADM Date: 04/05/25 Loc: HO.MAMMO Attending Dr: Clarita Magana MD Ordering Physician: Clarita Fountain sults: 1Negative Date of Service: 04/05/25Follow Up: 1 Year From Orig inal Mammogram Procedure(s): MM tomosynthesis screening BI Accession Number(s): [id number] cc: Clarita Fountain MD EXAMINATION: MM SCREENING [...] 04/12/25 1751 DD/ 1258 TD/TT: 04/05/25 1309 Lodging House Keeper: Clarita Magana MD IMG BI PROCEDURES Final Result * HPV mRNA E6/E7 w/Reflex to HPV Genotypes 16, 18/45 (12/08/2023 9:45 AM EST) HPV nRNA E6/E7 Not Detected Not Detected [facility] Comment:Methodology: Transcr iption-Mediated AmplificationThis assay detects E6/E7 viral messenger RNA (mRNA) from 14high-risk HPV types (16,18,31,33,35,39,45,51,52,56,58,59,66,68).Cervical sources are required for HPV testing.If a vaginal source from a patient who has had atotal hysterectomy with removal of cervix wassubmitted, please contact the testing laboratoryfor alternative testing options.For additional information, please refer tohttp://[email or web address]/faq/[email or web address](This link if provided for information/educational purposes only.)THIS TEST WAS PERFORMED AT:[email or web address] [place] [phone] SUTTON MD HPV mRNA E6/E7 [facility] HPV 16 RNA [facility] HPV 18/45 RNA [facility] 12/08/2023 9:45 AM EST 12/09/2023 8:00 AM EST Awa Salinas [facility] CYTOLOGY ORDERABLES F inal Result [facility] [address] [place] [phone] * Pap Smear (12/08/2023 9:45 AM EST) Swab Cervix uteri structure / Unknown 12/08/2023 9:45 AM EST 12/09/2023 8:00 AM EST Narrative [facility] - 12/23/2023 1:21 PM EST ----- ------- Name: Anya Eden Age/Sex: 63/F : 1960 Unit#: [id number] Attend Dr: AWA SALINAS CNM Re12/08/23 Status: DEP REF Location: [facility] Disch: ----- ------- SPEC : [id number] RECD: 12/09/23-799 STATUS: NICOLASA BRADY NUM: [id number] ZACHERY: 12/08/23-[address]: AWA SALINAS [facility] ENTERED: 12/09/23 SP TYPE: Pap Smr OTHR DR: ORDERED: Pap Smear Interpretation Satisfactory for evaluation. Atrophic. Negative for intraepithelial lesion or malignancy. HPV mRNA E6/E7: NOT DETECTED This assay detects E6/E7 viral messenger RNA (mRNA) from 14 high-risk HPV types (16, 18, 31, 33, 35, 39, 45, 51, 52, 56, 58, 59, 66, 68) HPV testing performed by [email or web address], [place], [place]. See reference laboratory portion of the EMR for entire report. Clinical Information LMP: Postmenopausal Previous PAP test: Unknown date/findings Material Received ThinPrep-Cervical ----- ------- Signed (signature on file) KYUNG Mooney (ASCP) 12/23/23 1321 ----- ------- END OF REPORT Awa Mathieu [facility] CYTOLOGY ORDERABLES F inal Result [facility] [address] [place] [phone] from Last 3 Months or Most Recently Relevant to Health Maintenance Insurance BS PPO Care Teams Technology Director Relationship Specialty Start Date End Date Clarita Fountain MD [address] [place] [phone] PCP - General Internal Medicine 11/13/23
--- OUTSIDE RECORDS SUMMARY | 2025-07-26 14:15 | XMS_ITS | Encounter Summary ---
Author Organization [employer] Address [address] [place] [address] Care Team Providers Care Sanitation Truck Cleaner Name Role Phone Clarita Fountain MD Primary Care Pro vider Encounter Details Date Type Department Care Team (Late st Contact Info) Description 10/09/2023 Orders Only [facility] [address] [place], [place] [phone] Tylor Baker MD [address] [place], [place] [phone] Social History Tobacco Use Types Packs/Day Years [...] HPV nRNA E6/E7 Not Detected Not Detected [facility] Comment:Methodology: Transcr iption-Mediated AmplificationThis assay detects E6/E7 viral messenger RNA (mRNA) from 14high-risk HPV types (16,18,31,33,35,39,45,51,52,56,58,59,66,68).Cervical sources are required for HPV testing.If a vaginal source from a patient who has had atotal hysterectomy with removal of cervix wassubmitted, please contact the testing laboratoryfor alternative testing options.For additional information, please refer tohttp://education.[employer]/faq/NXB535a0(This link if provided for information/educational purposes only.)THIS TEST WAS PERFORMED AT:[employer] [place] [phone] SUTTON MD HPV mRNA E6/E7 [facility] 16 [facility] HPV 18/45 RNA [facility] 12/08/2023 9:45 AM EST 12/09/2023 8:00 AM EST [facility] CYTOLOGY ORDERABLES F inal Result [facility] [address] [place] [phone] documented in this encounter Visit Diagnoses Not on filedocumented in this encounter Care Teams Sanitation Truck Cleaner Relationship Specialty Start Date End Date Clarita Fountain MD [address] [place] [address] PCP - General Internal Medicine 11/13/23 documented as of this encounter
== END 2025-07-26 13:04 | disposition home or self-care (01) ==
LOC: HO.MAMMO 13:03
PROVIDERS: PCP Student in an Organized Health Care Education/Training Program; Visit Provider Student in an Organized Health Care Education/Training Program
DX: Z13.820 Encounter for screening for osteoporosis (principal); Z78.0 Asymptomatic menopausal state
CPT/HCPCS: 77080

== ENCOUNTER → 2025-07-26 13:30 | Outpatient (BNV) | payer BC, SELFPAY | PROVIDERS: PCP Student in an Organized Health Care Education/Training Program; Visit Provider Radiology Diagnostic Radiology | DX: E28.39 Other primary ovarian failure (principal) | CPT/HCPCS: 77080 ==